=== PATIENT | male | born 1995 | race Caucasian/White ===

== ENCOUNTER 2016-04-30 17:14 | Emergency (ER) | payer OTHER ==
[~2016-04-30] VITALS: Ht 160 cm; Wt 119.3 kg
[~2016-04-30 17:14] MED LIST: DIVA500T3 PO; VALA500T60 PO
[2016-04-30 17:20] VITALS: TEMP 36.8; Ht 160 cm; Wt 119.3 kg
[2016-04-30] MEDS ORDERED: DIPH-437 PO (17:51)
[2016-04-30 18:44] LABS: BASO % 0.3 %; BASO ABS # 0.02 K/uL (0-0.2); COMPLETE YES; EOS % 2.5 %; HEMATOCRIT 43.1 % (42-52); IG% 0.3 %; LYMPH % 40.7 %; LYMPH ABS # 2.87 K/uL (1.2-3.4); MEAN CELL VOLUME 90.2 fL (80-100); MEAN CORPUSCULAR HEMOGLOBIN 31.4 pg (25-34); MEAN CORPUSCULAR HGB CONC 34.8 g/dl (32-36); MEAN PLATELET VOLUME 8.9 fL (7.4-10.4); MONO % 10.1 %; NEUT % 46.1 %; PLATELET COUNT 308 K/uL (130-400); RED BLOOD COUNT 4.78 M/uL (4.7-6.1); WHITE BLOOD COUNT 7.06 K/uL (4.8-10.8)
[2016-04-30 19:33] LABS: BUN/CREATININE RATIO 12.9 (10-20); CALCIUM 8.9 mg/dl (8.5-10.1); CREATININE 0.96 mg/dl (0.60-1.40); POTASSIUM 3.9 mmol/L (3.5-5.1)
--- NOTE | 2016-04-30 20:30 | EMERGENCY ROOM VISIT NOTE ---
History Report prepared by Dakota: Selvin Griffin Under the Supervision of: Dr. Wei White D.O. First contact with patient: 18:01 Chief Complaint: DIZZY Stated Complaint: DIZZY,ROOM SPINNING,CANT SLEEP Nursing Triage Summary: Dizzy, room spinning past couple of days. Not able to sleep. Trouble breathing. History of Present Illness The patient is a 20 year old male who presents to the Emergency Room with complaints of persistent dizziness beginning 3 days ago. He notes he gets headaches with the dizziness, and has had difficulty breathing, difficulty sleeping, and itchiness in his ears. 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 He has not had any recent illness or cough. The patient reports having diabetes. Source of History: patient Onset: 3 days ago Position: other (global) Quality: other (dizziness) Timing: other (persistent) Modifying Factors (Worsening): other (standing for long periods of time) Associated Symptoms: + headache, No cough Review of Systems See HPI for pertinent positives & negatives. A total of 10 systems reviewed and were otherwise negative. Past Medical & Surgical Medical Problems: (1) ADHD (attention deficit hyperactivity disorder) (2) Attn Deficit W Hyperact (3) Congenital obstruction of ureteropelvic junction (4) Depression (5) Developmental articulation disorder (6) Diabetes mellitus (7) H/o seizures (8) History of diabetes mellitus (9) Hypertension Nos (10) Hypothyroidism (11) Hypothyroidism Nos (12) Lumbago (13) Tobacco Use Disorder Surgical Problems: (1) S/P orchiopexy (2) S/p repair of lip (3) S/p revision of kidney/ureter (4) S/P tonsillectomy and adenoidectomy Family History No pertinent family history stated. Social History Smoking Status: Current Every Day Smoker Alcohol Use: none Marital Status: in relationship Housing Status: lives with family Occupation Status: employed Current/Historical Medications Scheduled Acetaminophen/Diphenhydramine (Tylenol Pm), 1 TAB PO DIRECTED Scheduled PRN Valacyclovir (Valtrex), 500 MG PO DIRECTED PRN for outbreak Allergies Coded Allergies: Lamotrigine (Verified Allergy, Mild, RASH, 04/30/16) Uncoded Allergies: PROVOLONE CHEESE (Allergy, Severe, ANAPHYLAXIS, 01/13/16) Physical Exam Vital Signs Date Time Temp Pulse Resp B/P Pulse Ox O2 Delivery O2 Flow Rate FiO2 04/30/16 19:03 69 18 148/87 98 Room Air 04/30/16 17:45 77 18 150/89 97 Room Air 78 141/92 95 163/98 04/30/16 17:20 36.8 100 18 165/109 93 Room Air Physical Exam CONSTITUTIONAL/VITAL SIGNS: Reviewed / noted above. GENERAL: Non-toxic in appearance. INTEGUMENTARY: Warm, dry, and [place]. HEAD: Normocephalic. EYES: without scleral icterus or trauma. ENT/OROPHARYNX: clear and moist. LYMPHADENOPATHY/NECK: Is supple without lymphadenopathy or meningismus. RESPIRATORY: Lungs clear and equal. CARDIOVASCULAR: Regular rate and rhythm. GI/ABDOMEN: Soft and nontender. No organomegaly or pulsatile mass. No rebound or guarding. Normal bowel sounds. EXTREMITIES: Warm and well perfused. BACK: No CVA tenderness. NEUROLOGICAL: Intact without focal deficits. PSYCHIATRIC: normal affect. MUSCULOSKELETAL: Normally developed with good muscle tone. Medical Decision & Procedures Laboratory Results 04/30/16 18:33 Red Blood Count 4.78, Mean Corpuscular Volume 90.2, Mean Corpuscular Hemoglobin 31.4, Mean Corpuscular Hemoglobin Concent 34.8, Mean Platelet Volume 8.9, Neutrophils (%) (Auto) 46.1, Lymphocytes (%) (Auto) 40.7, Monocytes (%) (Auto) 10.1, Eosinophils (%) (Auto) 2.5, Basophils (%) (Auto) 0.3, Neutrophils # (Auto ) 3.26, Lymphocytes # (Auto) 2.87, Monocytes # (Auto) 0.71, Eosinophils # (Auto ) 0.18, Basophils # (Auto) 0.02 04/30/16 18:33 Test 04/30/16 18:33 White Blood Count 7.06 K/uL (4.8-10.8) Red Blood Count 4.78 M/uL (4.7-6.1) Hemoglobin 15.0 g/dL (14.0-18.0) Hematocrit 43.1 % (42-52) Mean Corpuscular Volume 90.2 fL (80-100) Mean Corpuscular Hemoglobin 31.4 pg (25-34) Mean Corpuscular Hemoglobin Concent 34.8 g/dl (32-36) Platelet Count 308 K/uL (130-400) Mean Platelet Volume 8.9 fL (7.4-10.4) Neutrophils (%) (Auto) 46.1 % Lymphocytes (%) (Auto) 40.7 % Monocytes (%) (Auto) 10.1 % Eosinophils (%) (Auto) 2.5 % Basophils (%) (Auto) 0.3 % Neutrophils # (Auto) 3.26 K/uL (1.4-6.5) Lymphocytes # (Auto) 2.87 K/uL (1.2-3.4) Monocytes # (Auto) 0.71 K/uL (0.11-0.59) Eosinophils # (Auto) 0.18 K/uL (0-0.5) Basophils # (Auto) 0.02 K/uL (0-0.2) RDW Standard Deviation 43.3 fL (36.4-46.3) RDW Coefficient of Variation 13.1 % (11.5-14.5) Immature Granulocyte % (Auto) 0.3 % Immature Granulocyte # (Auto) 0.02 K/uL (0.00-0.02) Anion Gap 8.0 mmol/L (3-11) Est Creatinine Clear Calc Drug Dose 140.9 ml/min Estimated GFR () 130.4 Estimated GFR (Non- 112.5 BUN/Creatinine Ratio 12.9 (10-20) Calcium Level 8.9 mg/dl (8.5-10.1) Chemistry Specimen Hemolysis Laboratory results as stated above per my review. ED Course 1802: Previous medical records were reviewed. The patient was evaluated in room C3. A complete history and physical examination was performed. 2030: On reevaluation, the patient is hemodynamically stable. I discussed the results and findings with the patient. He verbalized agreement of the treatment plan. The patient was discharged home. Medical Decision Differential includes acute coronary syndrome, myocardial infarction, CVA, TIA, anemia, infection, pneumonia, UTI, pyelonephritis, poor nutrition, dehydration, electrolyte disturbance,hypoglycemia. This is a 20-year-old male who presents to the ED with a chief complaint of some dizziness for a few days. 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 The patient wanted to come in and make sure that everything is okay. Eyes any recent illness. He does report a history of borderline diabetes. He is currently on no medication for this. He had been on metformin in the past. The patient's exam is completely normal. His vital signs are normal. Blood work was unremarkable. The patient was told the results. He is felt to be stable for discharge. Impression Primary Impression: Dizziness Scribe Attestation The scribe's documentation has been prepared under my direction and personally reviewed by me in its entirety. I confirm that the note above accurately reflects all work, treatment, procedures, and medical decision making performed by me. Departure Information Dispostion Home / Self-Care Referrals Christofer Benavides III, M.D. (PCP) Patient Instructions ED Dizziness O, [facility] Additional Instructions Follow-up with your doctor for further care and evaluation in 1-2 days as needed. Return to the emergency department for worsening or new symptoms or any concerns. You have been examined and treated today on an emergency basis only. This is not a substitute for, or an effort to provide, complete comprehensive medical care. It is impossible to recognize and treat all injuries or illnesses in a single emergency department visit. It is therefore important that you follow up closely with your doctor. Call as soon as possible for an appointment.
[2016-04-30 20:43] VITALS: BP 172/92; PULSE 73; O2SAT 93
[2016-09-21] MEDS ORDERED: AZIT250T5 PO (01:02)
== END 2016-04-30 19:44 | disposition home or self-care (01) ==
LOC: C.EDB 17:15 → C.EDC 19:44
DX: R42 Dizziness and giddiness (principal); F90.9 Attention-deficit hyperactivity disorder, unspecified type; F32.9 Major depressive disorder, single episode, unspecified; F80.0 Phonological disorder; E11.9 Type 2 diabetes mellitus without complications; I10 Essential (primary) hypertension; E03.9 Hypothyroidism, unspecified; F17.210 Nicotine dependence, cigarettes, uncomplicated

== ENCOUNTER 2016-05-03 13:30 | Emergency (ER) | payer OTHER ==
[~2016-05-03] VITALS: Ht 157.5 cm; Wt 110.0 kg
[~2016-05-03 13:30] MED LIST changes: +DIPH-437 PO; -DIVA500T3 PO
[2016-05-03 13:32] VITALS: TEMP 36.4; Ht 157.5 cm; Wt 110.0 kg
[2016-05-03] MEDS ORDERED: ONDANSETRON 4MG OD TAB PO STA (13:53)
[2016-05-03] MEDS ORDERED: ACETAMINOPHEN 500 MG TAB PO STA (13:53)
[2016-05-03] MEDS ORDERED: OXYCODONE HCL IR 5 MG TAB (IMMEDIATE RELEASE) PO STA (13:53)
--- NOTE | 2016-05-03 14:30 | EMERGENCY ROOM VISIT NOTE ---
History Report prepared by Nellaibjodee: Mikhail Lakhani Under the Supervision of: Dr. Abel Damico M.D. 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 As per a friend that witnessed the fall, the patient was carrying a rocking chair and missed a step. The patient tumbled down 7-8 carpeted steps. The patient appeared dizzy and disoriented after the fall, and was having balance issues. The patient was taken to his bed, where he slept until his fiance woke him up just BARGAIN TABLE CLERK. The patient now complains of a headache, although he does not remember hitting his head. He also complains of neck pain and mouth pain. He did not bleed from the mouth. The patient denies pain to any extremities, his chest or abdomen. 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 A total of 10 systems reviewed and were otherwise negative. Past Medical & Surgical Medical Problems: (1) ADHD (attention deficit hyperactivity disorder) (2) Attn Deficit W Hyperact (3) Congenital obstruction of ureteropelvic junction (4) Depression (5) Developmental articulation disorder (6) Diabetes mellitus (7) H/o seizures (8) History of diabetes mellitus (9) Hypertension Nos (10) Hypothyroidism (11) Hypothyroidism Nos (12) Lumbago (13) Tobacco Use Disorder Surgical Problems: (1) S/P orchiopexy (2) S/p repair of lip (3) S/p revision of kidney/ureter (4) S/P tonsillectomy and adenoidectomy Family History No pertinent family history Social History Smoking Status: Current Every Day Smoker Alcohol Use: none Marital Status: in relationship Housing Status: lives with family Occupation Status: employed Current/Historical Medications Scheduled Acetaminophen/Diphenhydramine (Tylenol Pm), 1 TAB PO DIRECTED Ondasetron Odt (Zofran Odt), 4 MG SL Q6H Scheduled PRN Oxycodone Ir (Roxicodone Ir), 1-2 TAB PO Q4H PRN for Pain Valacyclovir (Valtrex), 500 MG PO DIRECTED PRN for outbreak Allergies Coded Allergies: Lamotrigine (Verified Allergy, Mild, RASH, 05/03/16) Uncoded Allergies: PROVOLONE CHEESE (Allergy, Severe, ANAPHYLAXIS, 01/13/16) Physical Exam Vital Signs Date Time Temp Pulse Resp B/P Pulse Ox O2 Delivery O2 Flow Rate FiO2 05/03/16 15:57 91 16 149/80 96 05/03/16 13:32 36.4 84 18 161/103 95 Room Air Physical Exam GENERAL: Patient is in no acute distress. HEENT: No acute trauma, normocephalic atraumatic, no scalp hematoma, pupils are equal and reactive to light, mucous membranes moist, no nasal congestion, no scleral icterus. NECK: No stridor, no adenopathy, no bony stepoff or focal area of tenderness, trachea is midline. LUNGS: Clear to auscultation bilaterally, no wheeze, no rhonchi, breath sounds equal. HEART: Without murmurs gallops or rubs, regular rate and rhythm. ABDOMEN: Soft, nontender, bowel sounds positive, no hernias, no peritonitis. EXTREMITIES: No cyanosis or edema, full range of motion of all the joints without pain or difficulty, no signs for acute trauma. NEUROLOGIC: Oriented x 3, no acute motor or sensory deficits, no focal weakness. SKIN: No rash, no jaundice, no diaphoresis. Medical Decision & Procedures ER Provider Diagnostic Interpretation: CT results as stated below per my review and radiologist interpretation: CERVICAL SPINE CT CT DOSE: HISTORY: Fall. Neck pain. TECHNIQUE: Multiaxial CT images of the cervical spine were performed and reformatted in the sagittal and coronal plane without the use of contrast. COMPARISON: Cervical spine CT 06/25/2014. FINDINGS: No acute fractures. No subluxation. Prevertebral soft tissues and the C1-C2 interval are intact. No pneumothorax. No change in the old nonunited fracture at the superior tip of the right C3 facet. IMPRESSION: No acute fractures within the cervical spine. Electronically signed by: Moises Packer M.D. 05/03/2016 3:15 PM Dictated Date/Time: 05/03/2016 3:[address] CT DOSE: 1301.54 mGy.cm HISTORY: HEADACHE TECHNIQUE: Multiaxial CT images of the head were performed without the use of intravenous contrast. Automated exposure control was utilized for this study. Comparison: Head CT 10/10/2015. Findings: The paranasal sinuses and mastoid air cells are clear. The calvarium and skull base are intact. The ventricles and sulci are within normal limits. There is no mass, hematoma, midline shift, or acute infarct. Impression: No acute intracranial abnormality. Electronically signed by: Moises Packer M.D. 05/03/2016 3:09 PM Dictated Date/Time: 05/03/2016 3:02 PM Medications Administered Medications (Trade) Dose Ordered Sig/[place] Route Start Time Stop Time Status Last Admin Dose Admin Ondansetron HCl (Zofran Odt) 8 mg NOW STAT PO 05/03/16 13:53 05/03/16 13:57 DC 05/03/16 14:24 8 MG Oxycodone HCl (Roxicodone Immediate Rel Tab) 5 mg NOW STAT PO 05/03/16 13:53 05/03/16 13:57 DC 05/03/16 14:24 5 MG Acetaminophen (Tylenol Tab) 1,000 mg NOW STAT PO 05/03/16 13:53 05/03/16 13:57 DC 05/03/16 14:23 1,000 MG Oxycodone HCl (Roxicodone Immediate Rel 5MG Home Pack) 1 homepack UD ONCE PO 05/03/16 15:45 05/03/16 15:46 DC 05/03/16 15:45 1 HOMEPACK ED Course 1350: The patient was evaluated in room B7. A complete history and physical exam was performed. 1353: Tylenol 1000 mg PO, Oxycodone IR 5 mg PO, Zofran 8 mg Odt PO. 1545: Oxycodone 5 mg IR PO homepack. 1530: Reassessed the patient. Discussed the findings with him. He verbalized understanding and agreement of the treatment plan. The patient is ready for discharge. 1532: The prescription drug monitoring program was evaluated for this patient. Medical Decision Differential diagnosis includes concussion, intracranial bleeding, skull fracture, cervical strain vs fracture, back chest abdominal or extremity trauma. The patient presents with a head injury. He has a headache and nausea and reports falling down the stairs. He also had some mild neck discomfort but no focal bony discomfort on exam. He denied injury to his back, chest, abdomen or extremities. Brain CT shows no acute bleed or mass effect. C-spine CT shows no acute fracture. The patient was given oral Tylenol, oral Zofran and oral oxycodone, he feels improved and is being discharged. He likely has suffered a concussion, I discussed concussion findings and care with him. He is being discharged with outpatient follow-up. He was encouraged to avoid any activity where he could strike his head again, he was given some oxycodone for pain control, Zofran for nausea. Rest was encouraged. [place] Drug Monitoring Program Search Results: patient reviewed within database, no issues identified Impression Primary Impression: Head trauma Additional Impressions: Concussion Cervical strain Scribe Attestation The scribe's documentation has been prepared under my direction and personally reviewed by me in its entirety. I confirm that the note above accurately reflects all work, treatment, procedures, and medical decision making performed by me. Departure Information Dispostion Home / Self-Care Prescriptions Ondasetron Odt (ZOFRAN ODT) 4 Mg Tab 4 MG SL Q6H for Nausea, #12 TAB Prov: Abel Damico M.D. 05/03/16 Oxycodone Ir (Roxicodone Ir) 5 Mg Tab 1-2 TAB PO Q4H Y for Pain, #12 TAB Prov: Abel Damico M.D. 05/03/16 Referrals No Doctor, Assigned (PCP) Forms HOME CARE DOCUMENTATION FORM, IMPORTANT VISIT INFORMATION, Work Instructions Patient Instructions Concussion, [facility] Additional Instructions tylenol or motrin for pain oxy ir 1-2 tab every 4 hours for severe pain zofran 1-2 tab every 6 hours for nausea fluids rest return if worsening head injury precautions as we discussed see your doctor for a recheck this week Problem Qualifiers
--- NOTE | 2016-05-03 15:10 | DIAGNOSTIC IMAGING REPORT ---
HEAD CT NONCONTRAST CT DOSE: 1301.54 mGy.cm HISTORY: HEADACHE TECHNIQUE: Multiaxial CT images of the head were performed without the use of intravenous contrast. Automated exposure control was utilized for this study. Comparison: Head CT 10/10/2015. Findings: The paranasal sinuses and mastoid air cells are clear. The calvarium and skull base are intact. The ventricles and sulci are within normal limits. There is no mass, hematoma, midline shift, or acute infarct. Impression: No acute intracranial abnormality. Electronically signed by: Moises Packer M.D. 05/03/2016 3:09 PM Dictated Date/Time: 05/03/2016 3:02 PM
--- NOTE | 2016-05-03 15:17 | DIAGNOSTIC IMAGING REPORT ---
CERVICAL SPINE CT CT DOSE: HISTORY: Fall. Neck pain. TECHNIQUE: Multiaxial CT images of the cervical spine were performed and reformatted in the sagittal and coronal plane without the use of contrast. COMPARISON: Cervical spine CT 06/25/2014. FINDINGS: No acute fractures. No subluxation. Prevertebral soft tissues and the C1-C2 interval are intact. No pneumothorax. No change in the old nonunited fracture at the superior tip of the right C3 facet. IMPRESSION: No acute fractures within the cervical spine. Electronically signed by: Moises Packer M.D. 05/03/2016 3:15 PM Dictated Date/Time: 05/03/2016 3:09 PM
[2016-05-03] MEDS ORDERED: ONDA4TAB10 SL (15:38)
[2016-05-03] MEDS ORDERED: OXYC1TAB3 PO (15:38)
[2016-05-03] MEDS ORDERED: OXYCODONE IR HOME PACK PO ONE (15:45)
[2016-05-03 15:57] VITALS: BP 149/80; PULSE 91; O2SAT 96
[2016-09-21] MEDS ORDERED: AZIT250T5 PO (01:02)
== END 2016-05-03 15:58 | disposition home or self-care (01) ==
LOC: C.EDB 13:31
DX: S09.90XA Unspecified injury of head, initial encounter (principal); S06.0X0A Concussion without loss of consciousness, initial encounter; S16.1XXA Strain of muscle, fascia and tendon at neck level, initial encounter; W10.8XXA Fall (on) (from) other stairs and steps, initial encounter; F90.9 Attention-deficit hyperactivity disorder, unspecified type; F32.9 Major depressive disorder, single episode, unspecified; E11.9 Type 2 diabetes mellitus without complications; E03.9 Hypothyroidism, unspecified; I10 Essential (primary) hypertension; F17.200 Nicotine dependence, unspecified, uncomplicated; Z91.011 Allergy to milk products

== ENCOUNTER 2016-08-30 13:04 | Emergency (ER) | payer OTHER ==
[~2016-08-30] VITALS: Ht 154.9 cm; Wt 123.0 kg
[~2016-08-30 13:04] MED LIST changes: +ONDA4TAB10 SL; +OXYC1TAB3 PO
[2016-08-30 13:06] VITALS: TEMP 36.5; Ht 154.9 cm; Wt 123.0 kg
[2016-08-30] MEDS ORDERED: SODIUM CHLORIDE 0.9% 1000ML 2,000 ML IV STA (13:19)
[2016-08-30] MEDS ORDERED: ONDANSETRON INJ 2 MG/ML 2 ML VIAL IV STA (13:19)
[2016-08-30] MEDS ORDERED: MoRPHine SULFATE 4 MG/ML 1 ML CARP\\VIAL IV STA (13:19)
[2016-08-30 13:44] LABS: BASO % 0.6 %; BASO ABS # 0.04 K/uL (0-0.2); COMPLETE YES; EOS % 3.3 %; HEMATOCRIT 45.5 % (42-52); IG% 0.1 %; LYMPH % 35.4 %; LYMPH ABS # 2.46 K/uL (1.2-3.4); MEAN CELL VOLUME 89.7 fL (80-100); MEAN CORPUSCULAR HEMOGLOBIN 30.4 pg (25-34); MEAN CORPUSCULAR HGB CONC 33.8 g/dl (32-36); MEAN PLATELET VOLUME 8.5 fL (7.4-10.4); MONO % 8.5 %; NEUT % 52.1 %; PLATELET COUNT 321 K/uL (130-400); RED BLOOD COUNT 5.07 M/uL (4.7-6.1); WHITE BLOOD COUNT 6.95 K/uL (4.8-10.8)
[2016-08-30 14:07] LABS: ALT/SGPT 64 U/L (12-78); AST/SGOT 22 U/L (15-37); BLOOD UREA NITROGEN 9 mg/dl (7-18); BUN/CREATININE RATIO 9.6 (10-20); CALCIUM 8.8 mg/dl (8.5-10.1); CARBON DIOXIDE 32 mmol/L (21-32); CHLORIDE 104 mmol/L (98-107); CREATININE 0.94 mg/dl (0.60-1.40); GLUCOSE 85 mg/dl (70-99); SODIUM 141 mmol/L (136-145)
[2016-08-30 14:10] LABS: ALKALINE PHOSPHATASE 86 U/L (45-117)
[2016-08-30 14:47] LABS: URINE APPEARANCE CLEAR (CLEAR); URINE BILIRUBIN NEG (NEG); URINE COLOR YELLOW; URINE NITRITE NEG (NEG); URINE PH 7.5 (4.5-7.5); URINE SPECIFIC GRAVITY 1.026 (1.000-1.030); UROBILINOGEN NEG (NEG); ZZUR CULT IF INDIC CLEAN CATCH NO
[2016-08-30 14:55] LABS: MANUAL MICROSCOPIC REQUIRED? NO; REVIEW REQ? NO
--- NOTE | 2016-08-30 15:21 | DIAGNOSTIC IMAGING REPORT ---
CT SCAN OF THE ABDOMEN AND PELVIS WITHOUT IV CONTRAST CLINICAL HISTORY: Left flank pain. COMPARISON STUDY: Abdominal CT dated 08/19/2014. TECHNIQUE: CT scan of the abdomen and pelvis is performed from the lung bases to the proximal femora. Images are reviewed in the axial, sagittal, and coronal planes. IV contrast was not administered for this examination. Automated dose control exposure was utilized. CT DOSE: 1184.48 mGy.cm FINDINGS: Lung bases: The heart is normal in size and without pericardial effusion. The lung bases are clear noting dependent hypoventilatory change. There is a tiny hiatal hernia. Liver: The unenhanced liver is top normal in size measuring 18 cm. The liver demonstrates diffusely diminished attenuation consistent with hepatic steatosis. Fatty sparing is seen adjacent to the gallbladder fossa. There is no intrahepatic biliary ductal dilatation. Gallbladder: Unremarkable. Spleen: Normal in size and attenuation. Pancreas: Unremarkable. Adrenal glands: Unremarkable. Kidneys: The unenhanced kidneys are normal in size and without hydronephrosis. Foci of cortical scarring are noted in the left kidney. There is a 2 mm nonobstructing calculus in the lower pole of the left kidney. No right renal calculi are identified. Next renal pelvises incidentally noted on the left. There is no evidence of contour deforming renal mass lesion. Abdominal vasculature: The abdominal aorta is normal in course and caliber. Bowel: The small bowel and colon are normal in course and caliber. The appendix is well-visualized and normal. Peritoneum: There is no intraperitoneal free air or abdominal ascites. There is a fat-containing umbilical hernia. Lymphadenopathy: None. Pelvic viscera: The bladder is decompressed and not well assessed. The prostate and seminal vesicles are normal as visualized. Skeletal structures: No lytic or blastic lesions are seen. IMPRESSION: 1. There are no acute infectious or inflammatory findings in the abdomen or pelvis. 2. Small nonobstructing left calculus. 3. Foci of cortical scarring are noted in the left kidney and similar to previous. 4. Hepatic steatosis. Electronically signed by: Abel Downing M.D. 08/30/2016 3:20 PM Dictated Date/Time: 08/30/2016 3:15 PM
--- NOTE | 2016-08-30 15:26 | EMERGENCY ROOM VISIT NOTE ---
History Report prepared by Dakota: Kyle Alba Under the Supervision of: Dr. William Gonsalez D.O. First contact with patient: 13:14 Chief Complaint: URINARY SYMPTOMS Stated Complaint: LEFT KIDNEY PAIN,BLOOD IN URINE Nursing Triage Summary: had surgery in 2000 on left kidney to remove tumor presents to the ED with 1 month of pain and hematuria History of Present Illness The patient is a 20 year old male who presents to the Emergency Room with complaints of persistent left flank pain that started a month ago. He says that he has been urinating blood as well. The patient associates the pain with nausea , and he started having burning with urination 2 weeks ago. He has not seen anyone for his symptoms, but it got to the point where he could not move due to the pain. The patient's last bowel movement was today. He denies any recent trauma or falls. The patient has no history of kidney stones and he has both his kidneys, but he had half of his left kidney removed in 2000 when he had surgery to remove a tumor. Source of History: patient Onset: A month ago Position: other (left flank) Quality: other (pain) Timing: other (persistent) Associated Symptoms: + nausea, + urinary symptoms (hematuria, burning with urination) Note: Associated symptoms: No recent falls or trauma. Review of Systems See HPI for pertinent positives & negatives. A total of 10 systems reviewed and were otherwise negative. Past Medical & Surgical Medical Problems: (1) ADHD (attention deficit hyperactivity disorder) (2) Attn Deficit W Hyperact (3) Congenital obstruction of ureteropelvic junction (4) Depression (5) Developmental articulation disorder (6) Diabetes mellitus (7) H/o seizures (8) History of diabetes mellitus (9) Hypertension Nos (10) Hypothyroidism (11) Hypothyroidism Nos (12) Lumbago (13) Tobacco Use Disorder Surgical Problems: (1) S/P orchiopexy (2) S/p repair of lip (3) S/p revision of kidney/ureter (4) S/P tonsillectomy and adenoidectomy Family History No pertinent family history Social History Smoking Status: Former Smoker Alcohol Use: none Marital Status: in relationship Housing Status: lives with family Occupation Status: employed Current/Historical Medications No Active Prescriptions or Reported Meds Allergies Coded Allergies: Lamotrigine (Verified Allergy, Mild, RASH, 05/03/16) Uncoded Allergies: PROVOLONE CHEESE (Allergy, Severe, ANAPHYLAXIS, 01/13/16) Physical Exam Vital Signs Date Time Temp Pulse Resp B/P (MAP) Pulse Ox O2 Delivery O2 Flow Rate FiO2 08/30/16 13:06 36.5 88 20 153/90 96 Physical Exam GENERAL: lying in bed, no acute distress, nontoxic EYE EXAM: normal conjunctiva OROPHARYNX: no exudate, no erythema, lips, buccal mucosa, and tongue normal and mucous membranes are moist NECK: supple, no nuchal rigidity, no adenopathy, non-tender LUNGS: Clear to auscultation. Normal chest wall mechanics HEART: no murmurs, S1 normal and S2 normal ABDOMEN: abdomen soft, non-tender, normo-active bowel sounds, no masses, no rebound or guarding. BACK: Acute reproducible left flank pain. Back is symmetrical on inspection and there is no deformity, no midline tenderness, no CVA tenderness. SKIN: no rashes and no bruising UPPER EXTREMITIES: upper extremities are grossly normal. LOWER EXTREMITIES: No pitting edema. NEURO EXAM: Normal sensorium, cranial nerves II-XII grossly intact, normal speech, no gross weakness of arms, no gross weakness of legs. Medical Decision & Procedures ER Provider Diagnostic Interpretation: Patient: CJ POND Address1: [address] [place] [address] Rec: [id number] Address2: Acct ID: [id number] [facility] Zip: [place] [address] Date: 1995 Sex: M Room/Bed: Ref Phy: Christofer Benavides III, M.D. SC: ASUNCION Att Phy: Report #: [id number] Leona Phy: Christofer Benavides III, M.D. Test: APWO Admit Phy: Planting Material Unloader: YANA Interpreting Phy: Abel Downing M.D. Diagnosis: LEFT KIDNEY PAIN,BLOOD IN URINE Ordering Phy: William Gonsalez DO Service Date: 08/30/16 Admit Date: 08/30/16 MNE: [id number] CONF: DICTATED BY: Abel Downing M.D.]] CC: William Gonsalez, Christofer Huggins III, M.D. Endcc: [~ rep ct add3]] CT SCAN OF THE ABDOMEN AND PELVIS WITHOUT IV CONTRAST CLINICAL HISTORY: Left flank pain. COMPARISON STUDY: Abdominal CT dated 08/19/2014. TECHNIQUE: CT scan of the abdomen and pelvis is performed from the lung bases to the proximal femora. Images are reviewed in the axial, sagittal, and coronal planes. IV contrast was not administered for this examination. Automated dose control exposure was utilized. CT DOSE: 1184.48 mGy.cm FINDINGS: Lung bases: The heart is normal in size and without pericardial effusion. The lung bases are clear noting dependent hypoventilatory change. There is a tiny hiatal hernia. Liver: The unenhanced liver is top normal in size measuring 18 cm. The liver demonstrates diffusely diminished attenuation consistent with hepatic steatosis. Fatty sparing is seen adjacent to the gallbladder fossa. There is no intrahepatic biliary ductal dilatation. Gallbladder: Unremarkable. Spleen: Normal in size and attenuation. Pancreas: Unremarkable. Adrenal glands: Unremarkable. Kidneys: The unenhanced kidneys are normal in size and without hydronephrosis. Foci of cortical scarring are noted in the left kidney. There is a 2 mm nonobstructing calculus in the lower pole of the left kidney. No right renal calculi are identified. Next renal pelvises incidentally noted on the left. There is no evidence of contour deforming renal mass lesion. Abdominal vasculature: The abdominal aorta is normal in course and caliber. Bowel: The small bowel and colon are normal in course and caliber. The appendix is well-visualized and normal. Peritoneum: There is no intraperitoneal free air or abdominal ascites. There is a fat-containing umbilical hernia. Lymphadenopathy: None. Pelvic viscera: The bladder is decompressed and not well assessed. The prostate and seminal vesicles are normal as visualized. Skeletal structures: No lytic or blastic lesions are seen. IMPRESSION: 1. There are no acute infectious or inflammatory findings in the abdomen or pelvis. 2. Small nonobstructing left calculus. 3. Foci of cortical scarring are noted in the left kidney and similar to previous. 4. Hepatic steatosis. Electronically signed by: Abel Downing M.D. 08/30/2016 3:20 PM Dictated Date/Time: 08/30/2016 3:15 PM Laboratory Results 08/30/16 13:25 Red Blood Count 5.07, Mean Corpuscular Volume 89.7, Mean Corpuscular Hemoglobin 30.4, Mean Corpuscular Hemoglobin Concent 33.8, Mean Platelet Volume 8.5, Neutrophils (%) (Auto) 52.1, Lymphocytes (%) (Auto) 35.4, Monocytes (%) (Auto) 8.5, Eosinophils (%) (Auto) 3.3, Basophils (%) (Auto) 0.6, Neutrophils # (Auto) 3.62, Lymphocytes # (Auto) 2.46, Monocytes # (Auto) 0.59, Eosinophils # (Auto) 0.23, Basophils # (Auto) 0.04 08/30/16 13:25 Test 08/30/16 13:25 08/30/16 14:05 White Blood Count 6.95 K/uL (4.8-10.8) Red Blood Count 5.07 M/uL (4.7-6.1) Hemoglobin 15.4 g/dL (14.0-18.0) Hematocrit 45.5 % (42-52) Mean Corpuscular Volume 89.7 fL (80-100) Mean Corpuscular Hemoglobin 30.4 pg (25-34) Mean Corpuscular Hemoglobin Concent 33.8 g/dl (32-36) Platelet Count 321 K/uL (130-400) Mean Platelet Volume 8.5 fL (7.4-10.4) Neutrophils (%) (Auto) 52.1 % Lymphocytes (%) (Auto) 35.4 % Monocytes (%) (Auto) 8.5 % Eosinophils (%) (Auto) 3.3 % Basophils (%) (Auto) 0.6 % Neutrophils # (Auto) 3.62 K/uL (1.4-6.5) Lymphocytes # (Auto) 2.46 K/uL (1.2-3.4) Monocytes # (Auto) 0.59 K/uL (0.11-0.59) Eosinophils # (Auto) 0.23 K/uL (0-0.5) Basophils # (Auto) 0.04 K/uL (0-0.2) RDW Standard Deviation 40.9 fL (36.4-46.3) RDW Coefficient of Variation 12.6 % (11.5-14.5) Immature Granulocyte % (Auto) 0.1 % Immature Granulocyte # (Auto) 0.01 K/uL (0.00-0.02) Anion Gap 5.0 mmol/L (3-11) Est Creatinine Clear Calc Drug Dose 141.6 ml/min Estimated GFR () 133.8 Estimated GFR (Non- 115.4 BUN/Creatinine Ratio 9.6 (10-20) Calcium Level 8.8 mg/dl (8.5-10.1) Total Bilirubin 0.4 mg/dl (0.2-1) Direct Bilirubin < 0.1 mg/dl (0-0.2) Aspartate Amino Transf (AST/SGOT) 22 U/L (15-37) Alanine Aminotransferase (ALT/SGPT) 64 U/L (12-78) Alkaline Phosphatase 86 U/L (45-117) Total Protein 7.5 gm/dl (6.4-8.2) Albumin 4.0 gm/dl (3.4-5.0) Lipase 148 U/L (73-393) Urine Color YELLOW Urine Appearance CLEAR (CLEAR) Urine pH 7.5 (4.5-7.5) Urine Specific [place] 1.026 (1.000-1.030) Urine Protein NEG (NEG) Urine Glucose (UA) NEG (NEG) Urine Ketones NEG (NEG) Urine Occult Blood NEG (NEG) Urine Nitrite NEG (NEG) Urine Bilirubin NEG (NEG) Urine Urobilinogen NEG (NEG) Urine Leukocyte Esterase NEG (NEG) Urine WBC (Auto) 1-5 /hpf (0-5) Urine RBC (Auto) 0-4 /hpf (0-4) Urine Hyaline Casts (Auto) 1-5 /lpf (0-5) Urine Epithelial Cells (Auto) 5-10 /lpf (0-5) Urine Bacteria (Auto) NEG (NEG) Laboratory results per my review. Medications Administered Medications (Trade) Dose Ordered Sig/[place] Route Start Time Stop Time Status Last Admin Dose Admin Sodium Chloride 2,000 ml @ 999 mls/hr Q2H1M STAT IV 08/30/16 13:19 08/30/16 15:19 DC 08/30/16 13:50 999 MLS/HR Ondansetron HCl (Zofran Inj) 4 mg NOW STAT IV 08/30/16 13:19 08/30/16 13:21 DC 08/30/16 13:50 4 MG Morphine Sulfate (MoRPHine SULFATE INJ) 4 mg NOW STAT IV 08/30/16 13:19 08/30/16 13:21 DC 08/30/16 13:50 4 MG ED Course ED COURSE: Vital signs were reviewed and showed hypertensive vitals. The patients medical record was reviewed The above diagnostic studies were performed and reviewed. ED treatments and interventions as stated above. 1315: The patient was evaluated in room A4B. A complete history and physical examination was performed. 1319: Ordered Morphine Sulfate Inj 4 mg IV, Zofran Inj 4 mg IV, NSS 2000 ml @ 999 mls/hr IV 1358: I reevaluated the patient and he is currently urinating for us, and then he will go to CT. 1534: Upon reevaluation, the patient is resting comfortably.I discussed my findings with the patient and he understands and agrees with the treatment plan. Based on the patients age, coexisting illnesses, exam and lab findings the decision to treat as an outpatient was made. The patient remained stable while under my care. The patient appeared well at the time of discharge. Medical Decision Differential diagnoses includes but is not limited to gastritis, peptic ulcer disease, GERD, gallbladder disease, pancreatitis, small bowel obstruction, acute coronary syndrome, pericarditis, ischemic bowel, irritable bowel disease, irritable bowel syndrome, appendicitis, diverticulitis, malignancy, hernia, urinary tract infection, torsion, perforation, trauma, infectious. Medication Reconciliation: I attest that I have personally reviewed the patient' s current medication list. Blood pressure screening: Patient was found to have an elevated blood pressure and was referred to their primary doctor for recheck and further treatment. Patient is a 20-year-old male who presents the ER for a month's worth of left flank pain associated with hematuria. He notes that he has a history of a Wilms tumor but no other significant past medical history. On exam he does have acute reproducible tenderness in the left flank tracking to the left upper quadrant of his abdomen. CT of abdomen and pelvis stone study was performed and was unremarkable. UA shows no signs of infection. No hematuria. CBC along with BMP, LFTs, bilirubin and lipase normal. Patient was given IV normal saline, Zofran and morphine. His pain was improved. He was discharged follow- up with his PCP. Uncertain of the true etiology of his pain at this time however does not appear to be surgical. With a negative CT I felt was reasonable discharged and have him follow-up with his primary care doctor. Discussed with Pt concerning signs and symptoms to watch out for. Pt was instructed to follow up with their PCP and discussed with the patient their option to return to the ED at anytime for persistent or worsening symptoms. The appropriate anticipatory guidance and out-patient management, including indications for return to the emergency department, were explained at length to the patient and understood. Impression Primary Impression: Left flank pain Scribe Attestation The scribe's documentation has been prepared under my direction and personally reviewed by me in its entirety. I confirm that the note above accurately reflects all work, treatment, procedures, and medical decision making performed by me. Departure Information Dispostion Home / Self-Care Prescriptions No Active Prescriptions or Reported Meds Referrals Christofer Benavides III, M.D. (PCP) Patient Instructions My [facility] Additional Instructions Please follow up with your primary care doctor with in the next 24 hours. Any worsening of your symptoms, please return to the ED immediately.
[2016-08-30 15:35] VITALS: BP 147/97; PULSE 73; O2SAT 97
== END 2016-08-30 15:45 | disposition home or self-care (01) ==
LOC: C.EDB 13:05 → C.EDA 15:45
DX: R10.32 Left lower quadrant pain (principal); R10.12 Left upper quadrant pain; R31.9 Hematuria, unspecified; R11.0 Nausea; R30.0 Dysuria; Z87.448 Personal history of other diseases of urinary system; F90.9 Attention-deficit hyperactivity disorder, unspecified type; F32.9 Major depressive disorder, single episode, unspecified; Q62.39 Other obstructive defects of renal pelvis and ureter; F80.89 Other developmental disorders of speech and language; E11.9 Type 2 diabetes mellitus without complications; I10 Essential (primary) hypertension; E03.9 Hypothyroidism, unspecified; M54.5 Low back pain; Z86.69 Personal history of other diseases of the nervous system and sense organs; Z87.891 Personal history of nicotine dependence

== ENCOUNTER 2016-09-10 18:27 | Emergency (ER) | payer OTHER ==
[~2016-09-10] VITALS: Ht 162.6 cm; Wt 124.6 kg
[2016-09-10 18:30] VITALS: TEMP 36.8; Ht 162.6 cm; Wt 124.6 kg
[2016-09-10] MEDS ORDERED: ONDANSETRON INJ 2 MG/ML 2 ML VIAL IV STA (19:00)
[2016-09-10] MEDS ORDERED: SODIUM CHLORIDE 0.9% 1000ML 1,000 ML IV ONE (19:00)
[2016-09-10 19:34] VITALS: BP 144/96; PULSE 80; O2SAT 98
[2016-09-10 20:13] LABS: BASO % 0.3 %; BASO ABS # 0.02 K/uL (0-0.2); COMPLETE YES; EOS % 4.4 %; HEMATOCRIT 42.9 % (42-52); IG% 0.2 %; LYMPH % 42.6 %; LYMPH ABS # 2.72 K/uL (1.2-3.4); MEAN CELL VOLUME 91.1 fL (80-100); MEAN CORPUSCULAR HEMOGLOBIN 30.8 pg (25-34); MEAN CORPUSCULAR HGB CONC 33.8 g/dl (32-36); MONO % 10.3 %; NEUT % 42.2 %; PLATELET COUNT 307 K/uL (130-400); RED BLOOD COUNT 4.71 M/uL (4.7-6.1); WHITE BLOOD COUNT 6.38 K/uL (4.8-10.8)
[2016-09-10 20:16] LABS: URINE APPEARANCE CLEAR (CLEAR); URINE BILIRUBIN NEG (NEG); URINE COLOR DK YELLOW; URINE NITRITE NEG (NEG); URINE SPECIFIC GRAVITY 1.033 (1.000-1.030); UROBILINOGEN NEG (NEG)
[2016-09-10 20:25] LABS: MANUAL MICROSCOPIC REQUIRED? NO; REVIEW REQ? NO
[2016-09-10 20:31] LABS: ALT/SGPT 58 U/L (12-78); AST/SGOT 27 U/L (15-37); BLOOD UREA NITROGEN 11 mg/dl (7-18); BUN/CREATININE RATIO 8.8 (10-20); CALCIUM 8.4 mg/dl (8.5-10.1); CARBON DIOXIDE 28 mmol/L (21-32); CHLORIDE 108 mmol/L (98-107); GLUCOSE 77 mg/dl (70-99); POTASSIUM 3.7 mmol/L (3.5-5.1); SODIUM 144 mmol/L (136-145)
[2016-09-10 20:34] LABS: ALKALINE PHOSPHATASE 91 U/L (45-117)
[2016-09-10] MEDS ORDERED: ONDA4TAB46 PO (20:59)
--- NOTE | 2016-09-12 14:00 | EMERGENCY ROOM VISIT NOTE ---
ED Visit Note First contact with patient: 18:43 Chief Complaint: I think I have sun poisoning. History of Present Illness: Mr. Bridges is a 20-year-old white male who ambulates into the ED accompanied by female friend and his daughter complaining of sunburn and possible sun poisoning. Patient reports he has been out playing in the sun and pool for the last few days with yesterday being multiple hours. He reports he has been using sunscreen and trying to apply it often but has noted that he has developed a sunburn to his face, his shoulders, his chest and upper arms. Patient reports today he has been having burning pain in the areas of the sunburn, he has been having perceived fevers; he has not checked his temperature , chills, lightheadedness and nausea. Currently he rates his discomfort 6/10. He describes his discomfort as a burning pain primarily in his left shoulder but also in his right and chest. His pain worsens with palpation and movements of the left shoulder; primarily abduction and extension. He has not identified any alleviating factors related to the pain. He has not taken any medications for his symptoms prior to arrival at the hospital. He denies sweats, headache, dizziness, recent head trauma, upper respiratory tract symptoms, cough, shortness of breath, wheezing, chest pain, palpitations, orthopnea, abdominal pain, diarrhea, constipation, rectal bleeding, black/tarry stools, urinary symptoms, flank pain, hematuria, extremity weakness/numbness/ tingling. Review of Systems: As noted above in history of present illness. All body systems were reviewed and found to be negative as noted above. Past Medical History: Diabetes, hypertension, hypothyroidism, congenital obstruction of the UPJ, attention deficit disorder, status post appendectomy, orchiopexy, revision of kidney/ureter, tonsillectomy and adenoidectomy. Current Medications: Zofran. Allergies to Medications: Acetaminophen, lamotrigine is allergic to Pravachol and cheese. Social History: Patient is currently employed; he feels safe in his home environment; he admits to tobacco use and denies alcohol use. Physical Examination: Vital Signs: Date Time Temp Pulse Resp B/P (MAP) Pulse Ox O2 Delivery O2 Flow Rate FiO2 09/10/16 19:34 85 150/83 98 Room Air 80 144/96 09/10/16 18:33 96 Room Air 09/10/16 18:30 36.8 93 17 142/88 94 Room Air GENERAL: 20-year-old male in mild to moderate distress due to symptoms, nontoxic -appearing, afebrile and hemodynamically stable. NEUROLOGICAL: Awake, alert and oriented to person, place and time. Answering questions appropriately and following commands. Normal gait. Good hand eye coordination. No focal motor or sensory deficits. SKIN: Warm, dry and pink. Over the patient's face, shoulders, upper arms and anterior chest he has a superficial thickness sunburn and over the top of the left shoulder he has a small collection of blisters. Burn is approximately 10- 15% body surface area. Partial-thickness burn is approximately 1% body surface area. The burned areas do not appear cellulitic. The burned areas are mildly tender to palpation. HEENT: Atraumatic and normocephalic. PERRLA. Sclera white and conjunctiva pink. No drainage from naris. Oral cavity moist and pink. Pharynx is nonerythematous or edematous. Speech normal. Trachea midline. No jugular venous distention. BACK: No tenderness over the bony spine. No CVA tenderness. THORAX: Lungs sounds are clear to auscultation and equal bilaterally with symmetrical chest wall. No wheezing, rales or rhonchi. No crepitus, tenderness , subcutaneous air or deformities noted. HEART: Regular rate and rhythm. No gallops, rubs or murmurs are appreciated. ABDOMEN: Flat, soft and nontender. Positive bowel sounds in all quadrants. No guarding, rigidity or organomegaly. EXTREMITIES: Moves all extremities well on command and with purpose. All distal neurovascular statuses are intact and equal bilaterally. ED Course: Patient is assessed as noted above. Patient's medication list was reviewed. Laboratory Testing: Test 09/10/16 19:05 09/10/16 19:10 Range/Units Urine Color DK YELLOW Urine Appearance CLEAR CLEAR Urine pH 6.0 4.5-7.5 Urine Specific [place] 1.033 1.000-1.030 Urine Protein NEG NEG Urine Glucose (UA) NEG NEG Urine Ketones TRACE NEG Urine Occult Blood NEG NEG Urine Nitrite NEG NEG Urine Bilirubin NEG NEG Urine Urobilinogen NEG NEG Urine Leukocyte Esterase NEG NEG White Blood Count 6.38 4.8-10.8 K/uL Red Blood Count 4.71 4.7-6.1 M/uL Hemoglobin 14.5 14.0-18.0 g/dL Hematocrit 42.9 42-52 % Mean Corpuscular Volume 91.1 80-100 fL Mean Corpuscular Hemoglobin 30.8 25-34 pg Mean Corpuscular Hemoglobin Concent 33.8 32-36 g/dl Platelet Count 307 130-400 K/uL Mean Platelet Volume 9.0 7.4-10.4 fL Neutrophils (%) (Auto) 42.2 % Lymphocytes (%) (Auto) 42.6 % Monocytes (%) (Auto) 10.3 % Eosinophils (%) (Auto) 4.4 % Basophils (%) (Auto) 0.3 % Neutrophils # (Auto) 2.69 1.4-6.5 K/uL Lymphocytes # (Auto) 2.72 1.2-3.4 K/uL Monocytes # (Auto) 0.66 0.11-0.59 K/uL Eosinophils # (Auto) 0.28 0-0.5 K/uL Basophils # (Auto) 0.02 0-0.2 K/uL RDW Standard Deviation 43.0 36.4-46.3 fL RDW Coefficient of Variation 12.8 11.5-14.5 % Immature Granulocyte % (Auto) 0.2 % Immature Granulocyte # (Auto) 0.01 0.00-0.02 K/uL Sodium Level 144 136-145 mmol/L Potassium Level 3.7 3.5-5.1 mmol/L Chloride Level 108 98-107 mmol/L Carbon Dioxide Level 28 21-32 mmol/L Anion Gap 8.0 3-11 mmol/L Blood Urea Nitrogen 11 7-18 mg/dl Creatinine 1.30 0.60-1.40 mg/dl Est Creatinine Clear Calc Drug Dose 108.6 ml/min Estimated GFR () 90.4 Estimated GFR (Non- 78.0 BUN/Creatinine Ratio 8.8 10-20 Random Glucose 77 70-99 mg/dl Calcium Level 8.4 8.5-10.1 mg/dl Total Bilirubin 0.3 0.2-1 mg/dl Direct Bilirubin < 0.1 0-0.2 mg/dl Aspartate Amino Transf (AST/SGOT) 27 15-37 U/L Alanine Aminotransferase (ALT/SGPT) 58 12-78 U/L Alkaline Phosphatase 91 45-117 U/L Total Protein 7.2 6.4-8.2 gm/dl Albumin 3.8 3.4-5.0 gm/dl Patient was hydrated with normal saline and given 4 mg of Zofran IV for nausea; he was offered pain medications and refused. Patient was reassessed multiple times her stay in the emergency department. Patient's case was reviewed with Dr. Flores; we agreed on diagnostic approach, treatment, disposition and plan. Patient was educated about tonight's findings and instructed on his treatment plan; he verbalizes understanding and agreement with this plan. Clinical Impression: First and second-degree sunburn. Nausea/vomiting. Decision-Making: Initially my differential diagnosis I considered dehydration, thermal castellano, underlying infection and other causes. Disposition: Patient discharged home in stable condition accompanied by his fiance and child; prior to departure he was reassessed and subjectively reported that he was pain and symptom-free. Plan: Patient was encouraged to continue any current medications that were prescribed by his primary care providers. Patient was encouraged to use 650 mg of ibuprofen every 6 hours as needed for pain. Patient was prescribed and instructed to use 4 mg of Zofran every 6 hours as needed for nausea/vomiting. Patient was encouraged to use cool compresses or towels on his sunburn. Patient was encouraged to stay well-hydrated with increased clear fluids. Patient was encouraged to avoid sun until resolution of his sunburn and then when reexposed use a much higher protection factor. Patient was encouraged to follow-up with his family doctor because his blood pressure was elevated today. Patient was encouraged return to the ED for uncontrolled pain, fevers, worsening vomiting or any new/concerning symptoms.
== END 2016-09-10 21:33 | disposition home or self-care (01) ==
LOC: C.EDB 18:28 → C.EDD 21:33
DX: L55.1 Sunburn of second degree (principal); R11.2 Nausea with vomiting, unspecified; I10 Essential (primary) hypertension; E03.9 Hypothyroidism, unspecified; F90.9 Attention-deficit hyperactivity disorder, unspecified type; F17.200 Nicotine dependence, unspecified, uncomplicated

== ENCOUNTER 2016-09-18 01:36 | Emergency (ER) | payer OTHER ==
[~2016-09-18] VITALS: Ht 162.6 cm; Wt 120.8 kg
[~2016-09-18 01:36] MED LIST changes: -DIPH-437 PO; -ONDA4TAB10 SL; +ONDA4TAB46 PO; -OXYC1TAB3 PO; -VALA500T60 PO
[2016-09-18 01:39] VITALS: Ht 162.6 cm; Wt 120.8 kg
[2016-09-18] MEDS ORDERED: ACET-1256 PO (02:00)
[2016-09-18] MEDS ORDERED: METOCLOPRAMIDE HCL INJ 5 MG/ML 2 ML VIAL IV STA (02:10)
[2016-09-18] MEDS ORDERED: SODIUM CHLORIDE 0.9% 1000ML 2,000 ML IV STA (02:10)
[2016-09-18] MEDS ORDERED: DiphenhydrAMINE HCL 50 MG/ML VIAL IV STA (02:10)
[2016-09-18] MEDS ORDERED: RANITIDINE HCL 50 MG/100 ML D5W IV STA (02:10)
[2016-09-18 03:21] LABS: BUN/CREATININE RATIO 10.6 (10-20); CREATININE 0.96 mg/dl (0.60-1.40); POTASSIUM 3.8 mmol/L (3.5-5.1)
[2016-09-18 03:28] LABS: BASO % 0.2 %; BASO ABS # 0.02 K/uL (0-0.2); COMPLETE YES; EOS % 1.3 %; HEMATOCRIT 41.4 % (42-52); IG% 0.2 %; LYMPH % 20.8 %; LYMPH ABS # 2.37 K/uL (1.2-3.4); MEAN CELL VOLUME 91.4 fL (80-100); MEAN CORPUSCULAR HEMOGLOBIN 30.7 pg (25-34); MEAN CORPUSCULAR HGB CONC 33.6 g/dl (32-36); MEAN PLATELET VOLUME 9.1 fL (7.4-10.4); MONO % 10.6 %; NEUT % 66.9 %; PLATELET COUNT 311 K/uL (130-400); RED BLOOD COUNT 4.53 M/uL (4.7-6.1); WHITE BLOOD COUNT 11.37 K/uL (4.8-10.8)
[2016-09-18 03:30] LABS: CALCIUM 8.8 mg/dl (8.5-10.1)
--- NOTE | 2016-09-18 03:36 | EMERGENCY ROOM VISIT NOTE ---
History First contact with patient: 02:07 Chief Complaint: NAUSEA Stated Complaint: NAUSEA,FEVER,DIZZYNESS,BODY PAIN Nursing Triage Summary: c/o nausea since this am. General aches and pains History of Present Illness The patient is a 20 year old male who presents to the Emergency Room with complaints of nausea, vomiting, diarrhea with subjective fever and chills for the past day. No one else is sick. No bad food exposure. Patient denies chest pain, dyspnea, abdominal pain, headache, neck stiffness, vertigo, cough, congestion. He cannot keep fluids down. No well water. No recent antibiotics. Review of Systems See HPI for pertinent positives & negatives. A total of 10 systems reviewed and were otherwise negative. Past Medical/Surgical History Medical Problems: (1) ADHD (attention deficit hyperactivity disorder) (2) Attn Deficit W Hyperact (3) Congenital obstruction of ureteropelvic junction (4) Depression (5) Developmental articulation disorder (6) Diabetes mellitus (7) H/o seizures (8) History of diabetes mellitus (9) Hypertension Nos (10) Hypothyroidism (11) Hypothyroidism Nos (12) Lumbago (13) Tobacco Use Disorder Surgical Problems: (1) S/P orchiopexy (2) S/p repair of lip (3) S/p revision of kidney/ureter (4) S/P tonsillectomy and adenoidectomy Family History No pertinent family history Social History Smoking Status: Current Every Day Smoker Alcohol Use: none Drug Use: none Marital Status: Housing Status: lives with family Occupation Status: employed Current/Historical Medications Scheduled PRN Acetaminophen (Tylenol), 1,000 MG PO Q4 PRN for Pain or Fever Ondansetron Hcl (Zofran), 4 MG PO Q6H PRN for Nausea or Vomiting Allergies Coded Allergies: Lamotrigine (Verified Allergy, Mild, RASH, 09/18/16) Uncoded Allergies: PROVOLONE CHEESE (Allergy, Severe, ANAPHYLAXIS, 01/13/16) Physical Exam Vital Signs Date Time Temp Pulse Resp B/P (MAP) Pulse Ox O2 Delivery O2 Flow Rate FiO2 09/18/16 02:45 77 16 110/80 98 93 126/82 93 119/60 09/18/16 01:39 37.2 100 18 142/90 96 Room Air Physical Exam VITALS: Vitals are noted on the nurse's note and reviewed by myself. Vital signs stable. GENERAL: Pleasant male, in no acute distress, nondiaphoretic, well-developed well-nourished. SKIN: The skin was without rashes, erythema, edema, or bruising. There is no tenting of the skin. Capillary reflex less than 2 seconds. HEAD: Normocephalic atraumatic. EARS: External auditory canals clear, tympanic membranes pearly odom without erythema or effusion bilaterally. EYES: Pupils equal round and reactive to light and accommodation. Conjunctivae without injection, sclerae without icterus. Extraocular movements intact. NOSE: Patent, turbinates without inflammation or discharge. No sinus tenderness. MOUTH: Mucous membranes mildly dry. Pharynx without erythema or exudate. Uvula midline. Airway patent. Tongue does not deviate. NECK: Supple without nuchal rigidity. No lymphadenopathy. No thyromegaly. Cervical spine is nontender. No JVD. HEART: Regular rate and rhythm without murmurs gallops or rubs. LUNGS: Clear to auscultation bilaterally without wheezes, rales or rhonchi. No dullness to percussion. No retractions or accessory muscle use. ABDOMEN: Positive bowel sounds x 4. Normal tympanic percussion. Soft, nontender, without masses or organomegaly. Levi sign negative. No guarding or rebound tenderness. No CVA tenderness MUSCULOSKELETAL: No muscle atrophy, erythema, or edema noted. NEURO: Patient was alert and oriented to person place and time. Normal sensation to light and sharp touch. No focal neurological deficits. Medical Decision & Procedures Laboratory Results 09/18/16 02:25 Test 09/18/16 02:25 Anion Gap 7.0 mmol/L (3-11) Est Creatinine Clear Calc Drug Dose 144.4 ml/min Estimated GFR () 130.4 Estimated GFR (Non- 112.5 BUN/Creatinine Ratio 10.6 (10-20) Medications Administered Medications (Trade) Dose Ordered Sig/[place] Route Start Time Stop Time Status Last Admin Dose Admin Metoclopramide HCl (Reglan Inj) 10 mg NOW STAT IV 09/18/16 02:10 09/18/16 02:11 DC 09/18/16 02:31 10 MG Diphenhydramine HCl (Benadryl Inj) 12.5 mg NOW STAT IV 09/18/16 02:10 09/18/16 02:11 DC 09/18/16 02:31 12.5 MG Sodium Chloride 2,000 ml @ 999 mls/hr Q2H1M STAT IV 09/18/16 02:10 09/18/16 04:10 09/18/16 02:32 999 MLS/HR Ranitidine HCl (zANTac IV) 50 mg NOW STAT IV 09/18/16 02:10 09/18/16 02:11 DC 09/18/16 02:31 50 MG ED Course Prior records/ancillary studies reviewed. Triage Nursing notes reviewed. Additional history obtained from the family. The patient's history was concerning for nausea, vomiting, diarrhea, and abdominal pain. Differential diagnosis: Etiologies such as gastroenteritis, food borne illness, infections, appendicitis , diverticulitis, inflammatory bowel disease, obstruction, GI bleed, biliary pathology, as well as others were entertained. Physical examination findings: As above. Abdominal examination revealed no tenderness. Vital signs reviewed and revealed stable. ER treatment provided: IV hydration 2 L NSS. reglan, benadryl, zantac, NSS On reassessment the patient felt better. Patient was tolerating p.o. intake. Diagnostics interpretation by me: The labs revealed mild leukocytosis, mild anemia. This appears to be consistent with vomiting and diarrhea most likely viral in etiology. Patient is well-appearing. He did not have acute abdomen on exam. He is tolerating fluids. He was advised to clear liquid diet today and then progress as tolerated to bland diet tomorrow. He was advised to follow-up family care in a few days or here in the ER sooner for abdominal pain, fevers, vomiting, worsening signs or symptoms or as needed. By the evaluation outlined above emergent etiologies such as appendicitis, diverticulitis, obstruction, cardiac sources, mesenteric ischemia, aortic pathology, inflammatory bowel disease, renal colic, PUD, biliary pathology, UTI, as well as others were deemed relatively unlikely. The pt informed about the findings as listed above. All questions were answered and pleased with the treatment. Return instructions were outlined and the patient was discharged in stable condition. Outpatient prescription management: Zofran Referral: The patient was referred to their primary care physician for follow-up in 2 to 3 days for a recheck of the current condition. Case reviewed with my Attending Medical Decision as above Impression Primary Impression: Nausea vomiting and diarrhea Departure Information Dispostion Home / Self-Care Condition GOOD Referrals Makayla, Christofer E.,III,M.D. (PCP) Patient Instructions My [facility] Additional Instructions DO NOT drive, drink alcohol, operate machinery, or perform dangerous activities today. You were given medications in the ER that can affect your ability to safely function or operate a vehicle. Zofran(odansetron) tablets 4mg: Take one and allow it to dissolve in your mouth every four to six hours as needed for nausea or vomiting. Ibuprofen(Motrin, Advil) may be used for fever or pain. Use 600mg every six hours as needed. Take with food. Avoid using more than 2400mg in a 24 hour period. Do not use 2400mg per day for more than three consecutive days without physician direction. Prolonged inappropriate use can lead to stomach upset or ulcers. (AND/OR) Acetaminophen(Tylenol) may be used for fever or pain. Use 1000mg every six hours as needed. Avoid using more than 3000mg in a 24 hour period. Rest and drink plenty of fluids as tolerated. Slow sips of water or sports drinks are recommended instead of large amounts all at once. Continue current medications. Once your stomach is settled start with a clear liquid diet (jello, soup broth, etc.) and then advance as tolerated. You should avoid full, heavy meals for about 24 hrs from the time your symptoms resolved. Return to the ER for persistent vomiting, fevers, abdominal pain, chest pains, difficulty breathing, black or bloody stools, worsening of your condition, or as needed. Follow up with your primary physician in 2-3 days for a recheck of your current condition.
[2016-09-18] MEDS ORDERED: ONDANSETRON HOME PACK 4MG OD TAB PO ONE (03:45)
[2016-09-18 04:05] VITALS: BP 137/78; PULSE 81; TEMP 37; O2SAT 98
== END 2016-09-18 04:05 | disposition home or self-care (01) ==
LOC: C.EDB 01:37
DX: R11.2 Nausea with vomiting, unspecified (principal); R19.7 Diarrhea, unspecified; F90.9 Attention-deficit hyperactivity disorder, unspecified type; F32.9 Major depressive disorder, single episode, unspecified; F80.0 Phonological disorder; Z83.3 Family history of diabetes mellitus; Z82.49 Family history of ischemic heart disease and other diseases of the circulatory system; E03.9 Hypothyroidism, unspecified; F17.210 Nicotine dependence, cigarettes, uncomplicated

== ENCOUNTER 2016-09-20 23:00 | Emergency (ER) | payer OTHER ==
[~2016-09-20] VITALS: Ht 162.6 cm; Wt 120.8 kg
[~2016-09-20 23:00] MED LIST changes: +ACET-1256 PO
[2016-09-20 23:12] VITALS: TEMP 37.3; Ht 162.6 cm; Wt 120.8 kg
[2016-09-20] MEDS ORDERED: DiphenhydrAMINE HCL 50 MG/ML VIAL IV STA (23:30)
[2016-09-20] MEDS ORDERED: LIDOCAINE HCL 2% VISC SOLN 20 ML UDC PO STA (23:30)
[2016-09-20] MEDS ORDERED: METOCLOPRAMIDE HCL INJ 5 MG/ML 2 ML VIAL IV STA (23:30)
[2016-09-20] MEDS ORDERED: ALUMINUM/MAGNESIUM SUSP 30 ML UDC PO STA (23:30)
[2016-09-20] MEDS ORDERED: SODIUM CHLORIDE 0.9% 1000ML 2,000 ML IV STA (23:30)
[2016-09-20] MEDS ORDERED: ALBUT/IPRATROP 3MG/0.5MG NEB 3 ML VIAL INH STA (23:33)
[2016-09-21 00:09] LABS: BASO % 0.4 %; BASO ABS # 0.05 K/uL (0-0.2); COMPLETE YES; EOS % 1.4 %; HEMATOCRIT 42.4 % (42-52); IG% 0.3 %; LYMPH % 23.9 %; LYMPH ABS # 3.19 K/uL (1.2-3.4); MEAN CORPUSCULAR HGB CONC 35.1 g/dl (32-36); MEAN PLATELET VOLUME 8.9 fL (7.4-10.4); MONO % 9.9 %; NEUT % 64.1 %; PLATELET COUNT 342 K/uL (130-400); RED BLOOD COUNT 4.66 M/uL (4.7-6.1); WHITE BLOOD COUNT 13.37 K/uL (4.8-10.8)
[2016-09-21 00:13] LABS: URINE APPEARANCE CLEAR (CLEAR); URINE BILIRUBIN NEG (NEG); URINE COLOR DK YELLOW; URINE NITRITE NEG (NEG); URINE PH 5.5 (4.5-7.5); URINE SPECIFIC GRAVITY 1.034 (1.000-1.030); UROBILINOGEN NEG (NEG)
[2016-09-21 00:19] LABS: MANUAL MICROSCOPIC REQUIRED? NO; REVIEW REQ? NO
[2016-09-21 00:25] LABS: ALT/SGPT 76 U/L (12-78); BLOOD UREA NITROGEN 10 mg/dl (7-18); BUN/CREATININE RATIO 9.3 (10-20); CALCIUM 9.9 mg/dl (8.5-10.1); CARBON DIOXIDE 29 mmol/L (21-32); CHLORIDE 102 mmol/L (98-107); GLUCOSE 87 mg/dl (70-99); POTASSIUM 4.1 mmol/L (3.5-5.1); SODIUM 138 mmol/L (136-145)
[2016-09-21 00:28] LABS: ALKALINE PHOSPHATASE 104 U/L (45-117); AST/SGOT 31 U/L (15-37)
[2016-09-21 00:42] VITALS: BP 142/80; PULSE 91; O2SAT 96
[2016-09-21] MEDS ORDERED: AZITHROMYCIN 250 MG TAB PO STA (00:47)
[2016-09-21] MEDS ORDERED: ALBUTEROL HFA 8 GM INHALER INH STA (00:47)
[2016-09-21] MEDS ORDERED: ONDANSETRON HOME PACK 4MG OD TAB PO ONE (01:00)
[2016-09-21] MEDS ORDERED: AZIT-60 PO (01:02)
[2016-09-21] MEDS ORDERED: ONDA4TAB10 SL (01:02)
--- NOTE | 2016-09-21 02:49 | EMERGENCY ROOM VISIT NOTE ---
History First contact with patient: 23:17 Chief Complaint: THROAT PAIN/INJURY Stated Complaint: COUGH,SORETHROAT,FATIGUE,VOMITING,WEAK,CHEST PAIN History of Present Illness The patient is a 20 year old male who presents to the Emergency Room with complaints of cough, sore throat, fatigue, vomiting for the past few days who seen here the other day with vomiting and diarrhea. Patient says the diarrhea has resolved and was feeling slightly better but then symptoms came back again. Patient continues to smoke. Patient denies abdominal pain, urinary symptoms, neck stiffness, earache, syncope. No sick contacts. Review of Systems See HPI for pertinent positives & negatives. A total of 10 systems reviewed and were otherwise negative. Past Medical/Surgical History Medical Problems: (1) ADHD (attention deficit hyperactivity disorder) (2) Attn Deficit W Hyperact (3) Congenital obstruction of ureteropelvic junction (4) Depression (5) Developmental articulation disorder (6) Diabetes mellitus (7) H/o seizures (8) History of diabetes mellitus (9) Hypertension Nos (10) Hypothyroidism (11) Hypothyroidism Nos (12) Lumbago (13) Tobacco Use Disorder Surgical Problems: (1) S/P orchiopexy (2) S/p repair of lip (3) S/p revision of kidney/ureter (4) S/P tonsillectomy and adenoidectomy Family History No pertinent family history Social History Smoking Status: Current Every Day Smoker Alcohol Use: none Drug Use: none Marital Status: Housing Status: lives with family Occupation Status: employed Current/Historical Medications Scheduled Azithromycin (Zithromax), 250 MG PO DAILY Ondasetron Odt (Zofran Odt), 4 MG SL Q6H Scheduled PRN Acetaminophen (Tylenol), 1,000 MG PO Q4 PRN for Pain or Fever Ondansetron Hcl (Zofran), 4 MG PO Q6H PRN for Nausea or Vomiting Allergies Coded Allergies: Lamotrigine (Verified Allergy, Mild, RASH, 09/20/16) Uncoded Allergies: PROVOLONE CHEESE (Allergy, Severe, ANAPHYLAXIS, 01/13/16) Physical Exam Vital Signs Date Time Temp Pulse Resp B/P (MAP) Pulse Ox O2 Delivery O2 Flow Rate FiO2 09/21/16 00:42 91 18 142/80 96 Room Air 09/20/16 23:55 Room Air 09/20/16 23:12 37.3 89 18 148/102 97 Room Air Pain Rating (0-10): 2.0 Physical Exam VITALS: Vitals are noted on the nurse's note and reviewed by myself. Vital signs stable. GENERAL: Pleasant male coughing, in no acute distress, nondiaphoretic, well- developed well-nourished. SKIN: The skin was without rashes, erythema, edema, or bruising. There is no tenting of the skin. Capillary reflex less than 2 seconds. HEAD: Normocephalic atraumatic. EARS: External auditory canals clear, tympanic membranes pearly odom without erythema or effusion bilaterally. EYES: Pupils equal round and reactive to light and accommodation. Conjunctivae without injection, sclerae without icterus. Extraocular movements intact. NOSE: Patent, turbinates without inflammation or discharge. No sinus tenderness. MOUTH: Mucous membranes moist. Pharynx without erythema or exudate. Uvula midline. Airway patent. Tongue does not deviate. NECK: Supple without nuchal rigidity. No lymphadenopathy. No thyromegaly. Cervical spine is nontender. No JVD. No meningeal signs HEART: Regular rate and rhythm without murmurs gallops or rubs. LUNGS: Mild diffuse end expiratory wheezes, without rales or rhonchi. No dullness to percussion. No retractions or accessory muscle use. ABDOMEN: Positive bowel sounds x 4. Normal tympanic percussion. Soft, nontender, without masses or organomegaly. Levi sign negative. No guarding or rebound tenderness. No CVA tenderness MUSCULOSKELETAL: No muscle atrophy, erythema, or edema noted. NEURO: Patient was alert and oriented to person place and time. Normal sensation to light and sharp touch. No focal neurological deficits. Medical Decision & Procedures Laboratory Results 09/20/16 23:13 Red Blood Count 4.66, Mean Corpuscular Volume 91.0, Mean Corpuscular Hemoglobin 32.0, Mean Corpuscular Hemoglobin Concent 35.1, Mean Platelet Volume 8.9, Neutrophils (%) (Auto) 64.1, Lymphocytes (%) (Auto) 23.9, Monocytes (%) (Auto) 9.9, Eosinophils (%) (Auto) 1.4, Basophils (%) (Auto) 0.4, Neutrophils # (Auto) 8.57, Lymphocytes # (Auto) 3.19, Monocytes # (Auto) 1.33, Eosinophils # (Auto) 0.19, Basophils # (Auto) 0.05 09/20/16 23:13 Test 09/20/16 23:13 White Blood Count 13.37 K/uL (4.8-10.8) Red Blood Count 4.66 M/uL (4.7-6.1) Hemoglobin 14.9 g/dL (14.0-18.0) Hematocrit 42.4 % (42-52) Mean Corpuscular Volume 91.0 fL (80-100) Mean Corpuscular Hemoglobin 32.0 pg (25-34) Mean Corpuscular Hemoglobin Concent 35.1 g/dl (32-36) Platelet Count 342 K/uL (130-400) Mean Platelet Volume 8.9 fL (7.4-10.4) Neutrophils (%) (Auto) 64.1 % Lymphocytes (%) (Auto) 23.9 % Monocytes (%) (Auto) 9.9 % Eosinophils (%) (Auto) 1.4 % Basophils (%) (Auto) 0.4 % Neutrophils # (Auto) 8.57 K/uL (1.4-6.5) Lymphocytes # (Auto) 3.19 K/uL (1.2-3.4) Monocytes # (Auto) 1.33 K/uL (0.11-0.59) Eosinophils # (Auto) 0.19 K/uL (0-0.5) Basophils # (Auto) 0.05 K/uL (0-0.2) RDW Standard Deviation 42.3 fL (36.4-46.3) RDW Coefficient of Variation 12.7 % (11.5-14.5) Immature Granulocyte % (Auto) 0.3 % Immature Granulocyte # (Auto) 0.04 K/uL (0.00-0.02) Urine Color DK YELLOW Urine Appearance CLEAR (CLEAR) Urine pH 5.5 (4.5-7.5) Urine Specific [place] 1.034 (1.000-1.030) Urine Protein NEG (NEG) Urine Glucose (UA) NEG (NEG) Urine Ketones TRACE (NEG) Urine Occult Blood NEG (NEG) Urine Nitrite NEG (NEG) Urine Bilirubin NEG (NEG) Urine Urobilinogen NEG (NEG) Urine Leukocyte Esterase NEG (NEG) Anion Gap 7.0 mmol/L (3-11) Est Creatinine Clear Calc Drug Dose 126.0 ml/min Estimated GFR () 110.6 Estimated GFR (Non- 95.5 BUN/Creatinine Ratio 9.3 (10-20) Calcium Level 9.9 mg/dl (8.5-10.1) Total Bilirubin 0.2 mg/dl (0.2-1) Direct Bilirubin < 0.1 mg/dl (0-0.2) Aspartate Amino Transf (AST/SGOT) 31 U/L (15-37) Alanine Aminotransferase (ALT/SGPT) 76 U/L (12-78) Alkaline Phosphatase 104 U/L (45-117) Total Protein 8.3 gm/dl (6.4-8.2) Albumin 4.1 gm/dl (3.4-5.0) Lipase 174 U/L (73-393) Medications Administered Medications (Trade) Dose Ordered Sig/[place] Route Start Time Stop Time Status Last Admin Dose Admin Lidocaine HCl (Viscous Lidocaine 2% Soln) 10 ml NOW STAT PO 09/20/16 23:30 09/20/16 23:32 DC 09/20/16 23:43 10 ML Al Hydroxide/Mg Hydroxide (Maalox Susp) 30 ml NOW STAT PO 09/20/16 23:30 09/20/16 23:32 DC 09/20/16 23:43 30 ML Metoclopramide HCl (Reglan Inj) 10 mg NOW STAT IV 09/20/16 23:30 09/20/16 23:32 DC 09/20/16 23:44 10 MG Diphenhydramine HCl (Benadryl Inj) 25 mg NOW STAT IV 09/20/16 23:30 09/20/16 23:32 DC 09/20/16 23:44 25 MG Sodium Chloride 2,000 ml @ 999 mls/hr Q2H1M STAT IV 09/20/16 23:30 09/21/16 01:22 DC 09/20/16 23:30 999 MLS/HR Albuterol/ Ipratropium (Duoneb) 3 ml NOW STAT INH 09/20/16 23:33 09/20/16 23:34 DC 09/20/16 23:44 3 ML Albuterol (Ventolin Hfa Inhaler) 2 puffs ONE STAT INH 09/21/16 00:47 09/21/16 00:48 DC 09/21/16 00:47 2 PUFFS Azithromycin (Zithromax Tab) 500 mg NOW STAT PO 09/21/16 00:47 09/21/16 00:48 DC 09/21/16 00:47 500 MG Ondansetron HCl (ZOFRAN ODT 4MG Home Pack) 1 homepack UD ONCE PO 09/21/16 01:00 09/21/16 01:01 DC 09/21/16 01:00 1 HOMEPACK ED Course Prior records/ancillary studies reviewed. Triage Nursing notes reviewed. Additional history obtained from family. The patient's history was concerning for a cough, vomiting and sore throat. Differential diagnosis: Etiologies such as bronchitis, gastritis, viral syndrome, tonsillitis, streptococcal pharyngitis, mononucleosis, peritonsillar abscess, retropharyngeal abscess, otitis, pneumonia, influenza, as well as others were entertained. ER treatment provided: GI cocktail, nebulizer On reassessment the patient felt better. Diagnostics interpreted by me: The labs revealed leukocytosis, negative strep test Imaging studies: Chest x-ray with peribronchial thickening with no acute consolidation or pneumothorax per my interpretation This appears to be consistent with Bronchitis with vomiting. Patient is advised take medications as directed and to follow-up family care in a few days or here in the ER sooner for fevers, difficulty breathing, vomiting, worsening signs or symptoms or as needed. Patient was tolerating fluids. He felt better. He requested to leave. He is strongly encouraged to quit smoking. He did not have acute abdomen on exam. No signs of meningitis. By the evaluation outlined above emergent etiologies such as peritonsillar abscess, retropharyngeal abscess, otitis, pneumonia, meningitis, urinary tract infection , sepsis, bacteremia, as well as others were deemed relatively unlikely. The pt informed about the findings as listed above. All questions were answered and pleased with the treatment. Return instructions were outlined and the patient was discharged in stable condition. Outpatient prescription management: Zithromax, Zofran Referral: The patient was referred back to their primary care physician for follow-up in 2 to 3 days for a recheck of the current condition. Case reviewed with my attending Medical Decision As above Impression Primary Impression: Acute bronchitis Additional Impression: Vomiting Departure Information Dispostion Home / Self-Care Condition GOOD Prescriptions Ondasetron Odt (ZOFRAN ODT) 4 Mg Tab 4 MG SL Q6H, #10 TAB Prov: Yael Isabel .NAM 09/21/16 Azithromycin (ZITHROMAX) 250 Mg Tab 250 MG PO DAILY, #4 TAB Prov: Yael Isabel PA-C 09/21/16 Referrals Christofer Benavides III, M.D. (PCP) Forms WORK / SCHOOL INSTRUCTIONS, HOME CARE DOCUMENTATION FORM, IMPORTANT VISIT INFORMATION Patient Instructions Bronchitis Acute, Vomiting - [facility], My [facility] Additional Instructions DO NOT drive, drink alcohol, operate machinery, or perform dangerous activities today. You were given medications in the ER that can affect your ability to safely function or operate a vehicle. Albuterol Inhaler: Take 2 puffs four times daily for five days, then as needed. Azithromycin(Zithromax) 250mg: Take one a day for 4 additional days. All antibiotics can cause diarrhea. If this occurs and you feel worse or it does not resolve in 1-2 days follow up with your doctor or return to the Emergency Department as this could be signs of serious underlying problems. Zofran(odansetron) tablets 4mg: Take one and allow it to dissolve in your mouth every four to six hours as needed for nausea or vomiting. Ibuprofen(Motrin, Advil) may be used for fever or pain. Use 600mg every six hours as needed. Take with food. Avoid using more than 2400mg in a 24 hour period. Do not use 2400mg per day for more than three consecutive days without physician direction. Prolonged inappropriate use can lead to stomach upset or ulcers. (AND/OR) Acetaminophen(Tylenol) may be used for fever or pain. Use 1000mg every six hours as needed. Avoid using more than 3000mg in a 24 hour period. Rest and drink plenty of fluids as tolerated. Slow sips of water or sports drinks are recommended instead of large amounts all at once. Continue current medications. Once your stomach is settled start with a clear liquid diet (jello, soup broth, etc.) and then advance as tolerated. You should avoid full, heavy meals for about 24 hrs from the time your symptoms resolved. Return to the ER for persistent vomiting, fevers, abdominal pain, chest pains, difficulty breathing, black or bloody stools, worsening of your condition, or as needed. Follow up with your primary physician in 2-3 days for a recheck of your current condition. Problem Qualifiers Primary Impression: Acute bronchitis Bronchitis organism: unspecified organism Qualified Codes: J20.9 - Acute bronchitis, unspecified Additional Impression: Vomiting Vomiting type: unspecified Vomiting Intractability: non-intractable Nausea presence: with nausea Qualified Codes: R11.2 - Nausea with vomiting, unspecified
--- NOTE | 2016-09-21 07:21 | DIAGNOSTIC IMAGING REPORT ---
TWO VIEW CHEST CLINICAL HISTORY: Cough. FINDINGS: PA and lateral chest radiographs are compared to study dated 01/13/2016. The PA view is degraded by apical lordotic positioning. The cardiomediastinal silhouette is unremarkable. The lungs and pleural spaces are clear. There is no pneumothorax. The bony thorax appears intact. IMPRESSION: No active disease in the chest. Electronically signed by: Abel Downing M.D. 09/21/2016 7:19 AM Dictated Date/Time: 09/21/2016 7:19 AM
== END 2016-09-21 01:13 | disposition home or self-care (01) ==
LOC: C.EDB 23:01 → C.EDA 09-21 01:13
DX: J20.9 Acute bronchitis, unspecified (principal); R11.2 Nausea with vomiting, unspecified; F17.200 Nicotine dependence, unspecified, uncomplicated; F90.1 Attention-deficit hyperactivity disorder, predominantly hyperactive type; Q62.39 Other obstructive defects of renal pelvis and ureter; F32.9 Major depressive disorder, single episode, unspecified; E11.9 Type 2 diabetes mellitus without complications; I10 Essential (primary) hypertension; E03.9 Hypothyroidism, unspecified; M54.5 Low back pain; Z86.69 Personal history of other diseases of the nervous system and sense organs

== ENCOUNTER 2016-09-28 16:45 | Emergency (ER) | payer OTHER ==
[~2016-09-28] VITALS: Ht 162.6 cm; Wt 120.0 kg
[~2016-09-28 16:45] MED LIST changes: +AZIT250T5 PO; +ONDA4TAB10 SL
[2016-09-28 16:49] VITALS: TEMP 36.6; Ht 162.6 cm; Wt 120.0 kg
--- NOTE | 2016-09-28 17:12 | DIAGNOSTIC IMAGING REPORT ---
RIGHT HAND MIN 3 VIEWS ROUTINE CLINICAL HISTORY: Right hand pain. COMPARISON: Right hand radiographs December 15, 2015. FINDINGS: Alignment of the right hand is anatomic. Evaluation is slightly compromised due to difficulty positioning. No fracture is identified. There may be soft tissue swelling of the fourth finger. IMPRESSION: No acute fracture or dislocation of the right hand. Electronically signed by: Nile Ruvalcaba M.D. 09/28/2016 5:11 PM Dictated Date/Time: 09/28/2016 5:09 PM
[2016-09-28 18:25] VITALS: BP 133/74; PULSE 67; O2SAT 98
--- NOTE | 2016-10-01 14:56 | EMERGENCY ROOM VISIT NOTE ---
ED Visit Note First contact with patient: 17:39 Chief Complaint: I think I might of broken my right hand. History of Present Illness: Mr. Bridges is a 20-year-old white male who ambulates into the ED accompanied by female friend complaining of right hand pain over the third and fourth MCP joint. Patient reports approximately 20 minutes before he arrived in the emergency department he became angry at his and punched a wall. He reports immediately had pain over the third and fourth MCP joint of the right hand. Currently he describes his pain as a sharp and throbbing sensation. He rates his discomfort 5/10. Pain is nonradiating. His pain worsens with palpation of the third and fourth MCP joint and the third and fourth metacarpals. He has not identified any alleviating factors related to the pain. He has not taken any medications for pain prior to arrival at the hospital. He denies any associated symptoms including elbow pain, forearm pain, wrist pain, hand weakness/numbness/tingling. Additionally he denies any previous significant injuries or surgeries to the right hand. Review of Systems: As noted above in history of present illness. At least body systems were reviewed and found to be negative as noted above. Past Medical History: (1) ADHD (attention deficit hyperactivity disorder) (2) Attn Deficit W Hyperact (3) Congenital obstruction of ureteropelvic junction (4) Depression (5) Developmental articulation disorder (6) Diabetes mellitus (7) H/o seizures (8) History of diabetes mellitus (9) Hypertension Nos (10) Hypothyroidism (11) Hypothyroidism Nos (12) Lumbago (13) Tobacco Use Disorder Surgical Problems: (1) S/P orchiopexy (2) S/p repair of lip (3) S/p revision of kidney/ureter (4) S/P tonsillectomy and adenoidectomy Current Medications: Patient denies. Allergies to Medications: Lamotrigine. Social History: Patient is not employed; he feels safe in his home environment; he admits to tobacco use and denies alcohol use. Physical Examination: Vital Signs: Date Time Temp Pulse Resp B/P (MAP) Pulse Ox O2 Delivery O2 Flow Rate FiO2 09/28/16 18:25 67 18 133/74 98 09/28/16 16:49 36.6 100 18 145/78 96 Room Air GENERAL: 20-year-old male in mild distress due to pain, nontoxic-appearing, afebrile and hemodynamically stable. NEUROLOGICAL: Awake, alert and oriented to person, place and time. Answering questions appropriately and following commands. SKIN: Warm, dry and pink. Right Hand: 2 superficial abrasions over the third and fourth MCP joint. No active bleeding. RIGHT HAND: No gross bony deformity. No tenderness throughout the forearm or wrist. Mild tenderness over the distal third and fourth metacarpals and the third and fourth MCP joint. I do not appreciate any bony deformity or crepitus. There is mild swelling over the third MCP joint. He has decreased range of motion in the MCP joint due to pain and swelling. There is no decreased range of motion in the PIP or DIP joint. Throughout the hand the fingers were warm and pink and capillary refill is brisk. He was able to distinguish light sensations through all dermatomes. ED Course: Patient is assessed as noted above. Patient's medication list was reviewed. Patient was given ice for pain and comfort; he refused pain medication. Right Hand X-Rays: Were read by myself and the radiologist showing no acute fractures or dislocations. Patient's wounds were cleansed with antibacterial soap and water. Patient's right hand was placed in an ulnar gutter splint. Patient was educated about today's findings and instructed on his treatment plan ; he verbalizes understanding and agreement with this plan. Clinical Impression: Right hand pain. Superficial abrasions to his right hand. Decision-Making: Initially my differential diagnosis I considered contusion, fracture, dislocation and other causes. Disposition: Patient discharged home in stable condition accompanied by his ; prior to departure he was reassessed and subjectively reported he was pain- free. Plan: Comfort measures were discussed with the patient including rest, ice, splint use and ibuprofen and acetaminophen. Wound care and signs of infection were discussed with the patient. Patient was encouraged to follow-up with orthopedics if no better in 7-10 days. Patient was encouraged to return to the ED or follow-up with family physician for signs of infection, uncontrolled pain, worsening swelling or any new/ concerning symptoms.
== END 2016-09-28 18:27 | disposition home or self-care (01) ==
LOC: C.EDB 16:46 → C.EDD 18:27
DX: S60.511A Abrasion of right hand, initial encounter (principal); W22.09XA Striking against other stationary object, initial encounter; Y93.89 Activity, other specified; Y99.8 Other external cause status; E11.9 Type 2 diabetes mellitus without complications; I10 Essential (primary) hypertension; Z72.0 Tobacco use; Z90.89 Acquired absence of other organs; Z98.890 Other specified postprocedural states

== ENCOUNTER 2016-11-06 13:23 | Emergency (ER) | payer OTHER ==
[~2016-11-06] VITALS: Ht 162.6 cm; Wt 124.0 kg
[2016-11-06 13:27] VITALS: Ht 162.6 cm; Wt 124.0 kg
[2016-11-06] MEDS ORDERED: ACETAMINOPHEN 500 MG TAB PO STA (14:19)
[2016-11-06] MEDS ORDERED: ONDANSETRON INJ 2 MG/ML 2 ML VIAL IV PRN (14:30)
[2016-11-06] MEDS ORDERED: IBUP-1050 PO (15:04)
--- NOTE | 2016-11-06 15:33 | DIAGNOSTIC IMAGING REPORT ---
HEAD CT NONCONTRAST CT DOSE: 638.56 mGycm HISTORY: hit head + LOC TECHNIQUE: Multiaxial CT images of the head were performed without the use of intravenous contrast. Automated exposure control was utilized for this study. A dose lowering technique was utilized adhering to the principles of ALARA. Comparison: Head CT 05/03/2016. Findings: The paranasal sinuses and mastoid air cells are clear. The calvarium and skull base are intact. The ventricles and sulci are within normal limits. There is no mass, hematoma, midline shift, or acute infarct. Impression: No acute intracranial abnormality. Electronically signed by: Moises Packer M.D. 11/06/2016 3:31 PM Dictated Date/Time: 11/06/2016 3:29 PM
[2016-11-06 16:06] LABS: HEMATOCRIT 46.4 % (42-52); MEAN CELL VOLUME 90.3 fL (80-100); MEAN CORPUSCULAR HGB CONC 33.2 g/dl (32-36); MEAN PLATELET VOLUME 8.9 fL (7.4-10.4); PLATELET COUNT 366 K/uL (130-400); RED BLOOD COUNT 5.14 M/uL (4.7-6.1); WHITE BLOOD COUNT 9.59 K/uL (4.8-10.8)
--- NOTE | 2016-11-06 16:20 | EMERGENCY ROOM VISIT NOTE ---
History Report prepared by Dakota: Jose Guillen Under the Supervision of: Dr. Mir Pelaez M.D. First contact with patient: 14:16 Chief Complaint: ILLNESS Stated Complaint: PAIN ALL OVER History of Present Illness The patient is a 20 year old male who presents to the Emergency Room with complaints of a persistent illness beginning today. His symptoms include vomiting, bloody stool, hematuria, and abdominal pain. He states that he has noticed some blood in his vomit as well. The patient admits to drinking alcohol last night. He states that he was drinking vodka. He states that he fell and hit the back of his head last night and lost consciousness. He is unsure how long he was unconscious for. Nothing has improved his symptoms. The patient's mother made a petitioning statement for the patient due to suicidal ideation. The patient states that his mother is "trying to get me committed so I can get on disability". He denies any homicidal or suicidal ideation. He denies any attempts to harm himself. Source of History: patient Onset: Today Quality: other (illness) Timing: other (persistent) Modifying Factors (Relieving): other (none) Associated Symptoms: + LOC, + vomiting (with some blood), + abdominal pain, + urinary symptoms (hematuria) Note: Additional symptoms: bloody stool. Review of Systems All systems have been listed, reviewed, and are negative other than those previously mentioned. Please see Additional Medical History Sheet. Past Medical & Surgical Medical Problems: (1) ADHD (attention deficit hyperactivity disorder) (2) Attn Deficit W Hyperact (3) Congenital obstruction of ureteropelvic junction (4) Depression (5) Developmental articulation disorder (6) Diabetes mellitus (7) H/o seizures (8) History of diabetes mellitus (9) Hypertension Nos (10) Hypothyroidism (11) Hypothyroidism Nos (12) Lumbago (13) Tobacco Use Disorder Surgical Problems: (1) S/P orchiopexy (2) S/p repair of lip (3) S/p revision of kidney/ureter (4) S/P tonsillectomy and adenoidectomy Family History No pertinent family history Social History Smoking Status: Never Smoker Alcohol Use: none Drug Use: none Marital Status: Housing Status: lives with family Occupation Status: employed Current/Historical Medications Scheduled Ibuprofen (Advil), 400 MG PO UD Allergies Coded Allergies: Lamotrigine (Verified Allergy, Mild, RASH, 11/06/16) Uncoded Allergies: PROVOLONE CHEESE (Allergy, Severe, ANAPHYLAXIS, 01/13/16) BEE STINGS (Adverse Reaction, Severe, SOB, 11/06/16) Physical Exam Vital Signs Date Time Temp Pulse Resp B/P (MAP) Pulse Ox O2 Delivery O2 Flow Rate FiO2 11/06/16 15:51 70 18 140/67 94 Room Air 11/06/16 13:27 36.6 103 18 160/105 93 Room Air Physical Exam GENERAL: Patient awake, alert, oriented x 3. Patient follows commands. Patient does not appear toxic. Patient is adequately hydrated and well- nourished. SKIN: No erythema, pallor, cyanosis or rash HEENT: Normal head, pupils equal, reactive to light and accommodation. Tenderness to the mid occiput. No lumps, bumps or bruises. Ears normal. Oral cavity and posterior pharynx appear normal. Neck: Without adenopathy, no neck vein distention. LUNGS: Clear to auscultation. No wheezes, no rales, no rhonchi. HEART: No murmurs. No gallops. No rubs ABDOMEN: Obese. No masses, no rebound, no hepatomegaly or splenomegaly. EXTREMITIES: No signs of trauma. No pedal or pretibial edema. No calf or thigh tenderness. NEUROLOGIC: Cranial nerves II-XII within normal limits. No gross motor sensory function deficits. PSYCHIATRIC: The patient is awake alert oriented. He is not suicidal or homicidal. He answers questions appropriately. He has a normal affect. Medical Decision & Procedures Laboratory Results 11/06/16 15:02 11/06/16 15:02 Test 11/06/16 15:02 11/06/16 16:14 Red Blood Count 5.14 M/uL (4.7-6.1) Mean Corpuscular Volume 90.3 fL (80-100) Mean Corpuscular Hemoglobin 30.0 pg (25-34) Mean Corpuscular Hemoglobin Concent 33.2 g/dl (32-36) RDW Standard Deviation 43.7 fL (36.4-46.3) RDW Coefficient of Variation 13.2 % (11.5-14.5) Mean Platelet Volume 8.9 fL (7.4-10.4) Anion Gap 9.0 mmol/L (3-11) Est Creatinine Clear Calc Drug Dose 140.7 ml/min Estimated GFR () 124.1 Estimated GFR (Non- 107.1 BUN/Creatinine Ratio 11.5 (10-20) Calcium Level 9.6 mg/dl (8.5-10.1) Chemistry Specimen Hemolysis Ethyl Alcohol mg/dL < 3.0 mg/dl (0-3) Urine Color DK YELLOW Urine Appearance CLEAR (CLEAR) Urine pH 8.0 (4.5-7.5) Urine Specific [place] 1.028 (1.000-1.030) Urine Protein NEG (NEG) Urine Glucose (UA) NEG (NEG) Urine Ketones NEG (NEG) Urine Occult Blood NEG (NEG) Urine Nitrite NEG (NEG) Urine Bilirubin NEG (NEG) Urine Urobilinogen NEG (NEG) Urine Leukocyte Esterase NEG (NEG) Urine WBC (Auto) 1-5 /hpf (0-5) Urine RBC (Auto) 0-4 /hpf (0-4) Urine Hyaline Casts (Auto) 1-5 /lpf (0-5) Urine Epithelial Cells (Auto) 10-20 /lpf (0-5) Urine Bacteria (Auto) NEG (NEG) Urine Opiates Screen NEG (NEG) Urine Methadone, Qualitative NEG (NEG) Urine Barbiturates NEG (NEG) Urine Phencyclidine (PCP) Level NEG (NEG) Ur Amphetamine/Methamphetamine NEG (NEG) MDMA (Ecstasy) Screen NEG (NEG) Urine Benzodiazepines Screen NEG (NEG) Urine Cocaine Metabolite NEG (NEG) Urine Marijuana (THC) NEG (NEG) Laboratory results as stated above per my review. Medications Administered Medications (Trade) Dose Ordered Sig/[place] Route Start Time Stop Time Status Last Admin Dose Admin Acetaminophen (Tylenol Tab) 1,000 mg NOW STAT PO 11/06/16 14:19 11/06/16 14:21 DC 11/06/16 15:02 1,000 MG Ondansetron HCl (Zofran Inj) 4 mg Q1HWA PRN IV 11/06/16 14:30 12/06/16 14:29 11/06/16 15:20 4 MG ED Course 1417: Past medical records reviewed. The patient was evaluated in room B7. A complete history and physical examination was performed. 1419: Ordered Tylenol tab 1000 mg PO. 1430: Ordered Zofran Inj 4 mg IV. 1655: Patient is feeling much better. Labs were evaluated. CT was evaluated. The patient is not severely depressed and is not suicidal. The patient is safe to return home. I discussed care with the patient and his . Medical Decision Nurses notes reviewed. Medical history sheet reviewed. Differential diagnosis includes but is not limited to: alcohol intoxication, metabolic disorder, and closed head injury. The patient's mother had expressed some concerns to the complex case manager about his mental status. The patient and his deny any suicidal or homicidal ideation. He is not interested in coming into the hospital and at this point the patient does not meet any criteria for coming in the hospital. I do not believe the patient is at risk at this time. Multiple labs were obtained. Please see above. CT does not reveal any acute findings. The patient was able to drink fluids well here and I believe he is safe to return home. The patient needs to either avoid alcohol or drink only in moderation. Medication Reconcilliation Current Medication List: was personally reviewed by me Blood Pressure Screening Patient's blood pressure: Elevated blood pressure Blood pressure disposition: Referred to PCP Impression Primary Impression: Alcohol intoxication Scribe Attestation The scribe's documentation has been prepared under my direction and personally reviewed by me in its entirety. I confirm that the note above accurately reflects all work, treatment, procedures, and medical decision making performed by me. Departure Information Dispostion Home / Self-Care Referrals No Doctor, Assigned (PCP) Patient Instructions My [facility] Additional Instructions Drink extra nonalcohol containing fluids today. Tylenol as needed for hangover symptoms. Follow-up with your family physician and mental health caregiver. Avoid alcohol.
[2016-11-06 16:33] LABS: URINE APPEARANCE CLEAR (CLEAR); URINE BILIRUBIN NEG (NEG); URINE COLOR DK YELLOW; URINE NITRITE NEG (NEG); URINE SPECIFIC GRAVITY 1.028 (1.000-1.030); UROBILINOGEN NEG (NEG); ZZUR CULT IF INDIC CLEAN CATCH NO
[2016-11-06 16:35] LABS: MANUAL MICROSCOPIC REQUIRED? NO; REVIEW REQ? NO
[2016-11-06 16:36] LABS: SULFASALICYLIC ACID NEG (NEG)
[2016-11-06 16:40] LABS: BUN/CREATININE RATIO 11.5 (10-20); CALCIUM 9.6 mg/dl (8.5-10.1); POTASSIUM 4.2 mmol/L (3.5-5.1)
[2016-11-06 16:57] LABS: BENZODIAZEPINE, URINE NEG (NEG); COCAINE,URINE NEG (NEG); PHENCYCLIDINE, URINE NEG (NEG)
[2016-11-06 17:27] VITALS: BP 148/76; PULSE 88; TEMP 36.6; O2SAT 97
== END 2016-11-06 17:28 | disposition home or self-care (01) ==
LOC: C.EDB 13:28
DX: F10.129 Alcohol abuse with intoxication, unspecified (principal); I10 Essential (primary) hypertension; E11.9 Type 2 diabetes mellitus without complications; E03.9 Hypothyroidism, unspecified; F90.9 Attention-deficit hyperactivity disorder, unspecified type; F32.9 Major depressive disorder, single episode, unspecified; G40.909 Epilepsy, unspecified, not intractable, without status epilepticus; F17.200 Nicotine dependence, unspecified, uncomplicated; Z98.890 Other specified postprocedural states; Z88.8 Allergy status to other drugs, medicaments and biological substances

== ENCOUNTER 2017-01-12 22:51 | Emergency (ER) | payer OTHER ==
[~2017-01-12] VITALS: Ht 165.1 cm; Wt 125.2 kg
[~2017-01-12 22:51] MED LIST changes: -ACET-1256 PO; -AZIT250T5 PO; +IBUP-1050 PO; -ONDA4TAB10 SL; -ONDA4TAB46 PO
[2017-01-12 22:58] VITALS: TEMP 37; Ht 165.1 cm; Wt 125.2 kg
[2017-01-12] MEDS ORDERED: DEXAMETHASONE SOD INJ 10 MG/ML VIAL PO ONE (23:15)
[2017-01-12] MEDS ORDERED: ALBUT/IPRATROP 3MG/0.5MG NEB 3 ML VIAL INH STA (23:15)
[2017-01-12] MEDS ORDERED: PRED50TA PO (23:49)
[2017-01-12] MEDS ORDERED: DOXY100C2 PO (23:49)
[2017-01-12] MEDS ORDERED: ALBUTEROL HFA 8 GM INHALER INH STA (23:52)
[2017-01-13 00:04] VITALS: BP 134/80; PULSE 99; O2SAT 94
--- NOTE | 2017-01-13 04:30 | EMERGENCY ROOM VISIT NOTE ---
History First contact with patient: 23:09 Chief Complaint: COUGH Stated Complaint: DIZZY,COUGHING BLOOD,DIARRHEA,VOMITING Nursing Triage Summary: Pt complains of cough since yesterday. Pt concerned because his mother has pneumonia. History of Present Illness The patient is a 21 year old male who presents to the Emergency Room with complaints of cough, congestion with subjective fever and chills for the past day. Patient does smoke. Patient denies fever, sore throat, chest pain, dyspnea, abdominal pain, earache, sinus pain or congestion, vomiting, diarrhea. He is tolerating by mouth fluids and food. Other people that he's been around has been sick. Review of Systems See HPI for pertinent positives & negatives. A total of 10 systems reviewed and were otherwise negative. Past Medical/Surgical History Medical Problems: (1) ADHD (attention deficit hyperactivity disorder) (2) Attn Deficit W Hyperact (3) Congenital obstruction of ureteropelvic junction (4) Depression (5) Developmental articulation disorder (6) Diabetes mellitus (7) H/o seizures (8) History of diabetes mellitus (9) Hypertension Nos (10) Hypothyroidism (11) Hypothyroidism Nos (12) Lumbago (13) Tobacco Use Disorder Surgical Problems: (1) S/P orchiopexy (2) S/p repair of lip (3) S/p revision of kidney/ureter (4) S/P tonsillectomy and adenoidectomy Family History No pertinent family history Social History Smoking Status: Current Every Day Smoker Alcohol Use: none Drug Use: none Marital Status: Housing Status: lives with family Occupation Status: employed Current/Historical Medications Scheduled Doxycycline Hyclate (Vibramycin), 100 MG PO BID Prednisone (Prednisone), 50 MG PO DAILY Physical Exam Vital Signs Date Time Temp Pulse Resp B/P (MAP) Pulse Ox O2 Delivery O2 Flow Rate FiO2 01/13/17 00:04 99 20 134/80 94 01/12/17 22:58 37.0 101 18 161/107 97 Room Air Physical Exam VITALS: Vitals are noted on the nurse's note and reviewed by myself. Vital signs stable. GENERAL: White male with tobacco odor, in no acute distress, nondiaphoretic, well-developed well-nourished. SKIN: The skin was without rashes, erythema, edema, or bruising. There is no tenting of the skin. Capillary reflex less than 2 seconds. HEAD: Normocephalic atraumatic. EARS: External auditory canals clear, tympanic membranes pearly odom without erythema or effusion bilaterally. EYES: Pupils equal round and reactive to light and accommodation. Conjunctivae without injection, sclerae without icterus. Extraocular movements intact. NOSE: Patent, turbinates without inflammation or discharge. No sinus tenderness. MOUTH: Mucous membranes moist. Pharynx without erythema or exudate. Uvula midline. Airway patent. Tongue does not deviate. NECK: Supple without nuchal rigidity. No lymphadenopathy. No thyromegaly. Cervical spine is nontender. No JVD. HEART: Regular rate and rhythm without murmurs gallops or rubs. LUNGS: Diffuse inspiratory and end expiratory wheezes, without rales or rhonchi. No dullness to percussion. No retractions or accessory muscle use. ABDOMEN: Positive bowel sounds x 4. Normal tympanic percussion. Soft, nontender, without masses or organomegaly. Levi sign negative. No guarding or rebound tenderness. No CVA tenderness MUSCULOSKELETAL: No muscle atrophy, erythema, or edema noted. NEURO: Patient was alert and oriented to person place and time. Normal sensation to light and sharp touch. No focal neurological deficits. Medical Decision & Procedures Medications Administered Medications (Trade) Dose Ordered Sig/[place] Route Start Time Stop Time Status Last Admin Dose Admin Dexamethasone Sodium Phosphate (Decadron Inj) 10 mg NOW ONCE PO 01/12/17 23:15 01/12/17 23:17 DC 01/12/17 23:22 10 MG Albuterol/ Ipratropium (Duoneb) 3 ml NOW STAT INH 01/12/17 23:15 01/12/17 23:17 DC 01/12/17 23:22 3 ML Albuterol (Ventolin Hfa Inhaler) 2 puffs ONE STAT INH 01/12/17 23:52 01/12/17 23:53 DC 01/13/17 00:04 2 PUFFS ED Course Prior records/ancillary studies reviewed. Triage Nursing notes reviewed. Additional history obtained from friends The patient's history was concerning for a cough and congestion. Differential diagnosis: Etiologies such as bronchitis, viral syndrome, tonsillitis, streptococcal pharyngitis, mononucleosis, peritonsillar abscess, retropharyngeal abscess, otitis, pneumonia, influenza, as well as others were entertained. ER treatment provided: Nebulizer, steroids On reassessment the patient felt better. Diagnostics interpreted by me: Imaging studies: Chest x-ray with no acute consolidation, pneumothorax or free air per my interpretation This appears to be consistent with bronchitis. Patient had no signs of pneumonia. Stable vital signs. He was strongly encouraged to quit smoking. He was advised to take medications as directed and to follow-up with family care in a few days or here in the ER sooner for high fevers, difficulty breathing, chest pains, worsening signs or symptoms or as needed. By the evaluation outlined above emergent etiologies such as peritonsillar abscess, retropharyngeal abscess, otitis, pneumonia, meningitis, urinary tract infection , sepsis, bacteremia, as well as others were deemed relatively unlikely. The pt informed about the findings as listed above. All questions were answered and pleased with the treatment. Return instructions were outlined and the patient was discharged in stable condition. Outpatient prescription management: Doxycycline, prednisone Referral: The patient was referred back to their primary care physician for follow-up in 2 to 3 days for a recheck of the current condition. Medical Decision As above Medication Reconcilliation Current Medication List: was personally reviewed by me Blood Pressure Screening Patient's blood pressure: Normal blood pressure Impression Primary Impression: Acute bronchitis Departure Information Dispostion Home / Self-Care Condition GOOD Prescriptions Prednisone (Prednisone) 50 Mg Tab 50 MG PO DAILY for 4 Days, #4 TAB Prov: Yael Isabel PA-C 01/12/17 Doxycycline Hyclate (VIBRAMYCIN) 100 Mg Cap 100 MG PO BID for 7 Days, #14 CAP Prov: Yael Isabel PA-C 01/12/17 Forms HOME CARE DOCUMENTATION FORM, Work Instructions, Return To Work: 2 days IMPORTANT VISIT INFORMATION Patient Instructions Bronchitis Acute, My [facility] Additional Instructions Doxycycline 100mg: Take one pill twice daily for seven days for your infection. Take with food, but avoid dairy. Avoid prolonged sun exposure since this medication makes you temporarily more susceptible to sunburns. All antibiotics can cause diarrhea. If this occurs and you feel worse or it does not resolve in 1-2 days follow up with your doctor or return to the Emergency Department as this could be signs of serious underlying problems. Any medication can cause an allergic reaction, stop the pills immediately and return to the ER for rash, hives, breathing difficulties, or swelling. Albuterol Inhaler: Take 2 puffs four times daily for seven days, then as needed. Acetaminophen(Tylenol) may be used for fever or pain. Use 1000mg every six hours as needed. Avoid using more than 3000mg in a 24 hour period. AND/OR Ibuprofen(Motrin, Advil) may be used for fever or pain. Use 600mg every six hours as needed. Take with food. Avoid using more than 2400mg in a 24 hour period. Do not use 2400mg per day for more than three consecutive days without physician direction. Prolonged inappropriate use can lead to stomach upset or ulcers. Prednisone 50 m tablet daily for the next 4 days. Take this in the morning. This can make you shaky. Controlling your fever with Tylenol and Ibuprofen as above will make you feel better. Rest and drink plenty of fluids. Avoid strenuous activity until your symptoms resolve and your breathing returns to normal. Continue current medications. Return to the ER for chest pain, difficulty breathing, persistent fevers, vomiting, worsening of your condition, or as needed. Follow-up with family care in 2-3 days. Work Instructions Return To Work: 2 days Problem Qualifiers Primary Impression: Acute bronchitis Bronchitis organism: unspecified organism Qualified Codes: J20.9 - Acute bronchitis, unspecified
--- NOTE | 2017-01-13 06:48 | DIAGNOSTIC IMAGING REPORT ---
CHEST 2 VIEWS ROUTINE HISTORY: 21 years-old Male cough/fever acute cough and fever COMPARISON: Chest radiograph 09/21/2006 TECHNIQUE: Frontal and lateral views of the chest FINDINGS: Cardiomediastinal and hilar silhouettes are within normal limits. No pneumothorax, pleural effusion, focal airspace consolidation or overt pulmonary edema. The bones of the chest are grossly intact. Upper abdomen is unremarkable. IMPRESSION: No acute cardiopulmonary process. The above report was generated using voice recognition software. It may contain grammatical, syntax or spelling errors. Electronically signed by: Rohan Brown M.D. 01/13/2017 6:47 AM Dictated Date/Time: 01/13/2017 6:46 AM
== END 2017-01-13 00:10 | disposition home or self-care (01) ==
LOC: C.EDB 22:54
DX: J20.9 Acute bronchitis, unspecified (principal); E11.9 Type 2 diabetes mellitus without complications; I10 Essential (primary) hypertension; E03.9 Hypothyroidism, unspecified; G40.909 Epilepsy, unspecified, not intractable, without status epilepticus; F90.9 Attention-deficit hyperactivity disorder, unspecified type; F32.9 Major depressive disorder, single episode, unspecified; F17.200 Nicotine dependence, unspecified, uncomplicated; Z98.890 Other specified postprocedural states

== ENCOUNTER 2017-02-14 10:41 | Emergency (ER) | payer OTHER ==
[~2017-02-14] VITALS: Ht 165.1 cm; Wt 122.0 kg
[~2017-02-14 10:41] MED LIST changes: +DOXY100C2 PO; -IBUP-1050 PO
[2017-02-14 10:59] VITALS: TEMP 36.8; Ht 165.1 cm; Wt 122.0 kg
--- NOTE | 2017-02-14 11:48 | DIAGNOSTIC IMAGING REPORT ---
CHEST ONE VIEW PORTABLE CLINICAL HISTORY: Atypical chest pain COMPARISON STUDY: 01/12/2017 FINDINGS: The cardiac and mediastinal contours are normal. There is no evidence of focal pulmonary consolidation. There is no evidence of failure. No pleural effusions are visualized.[ IMPRESSION: No active disease in the chest. Electronically signed by: Wing Martinez M.D. 02/14/2017 11:47 AM Dictated Date/Time: 02/14/2017 11:47 AM
[2017-02-14 12:31] LABS: BASO % 0.3 %; BASO ABS # 0.02 K/uL (0-0.2); COMPLETE YES; EOS % 1.7 %; HEMATOCRIT 44.1 % (42-52); IG% 0.3 %; LYMPH % 40.1 %; LYMPH ABS # 2.59 K/uL (1.2-3.4); MEAN CELL VOLUME 91.3 fL (80-100); MEAN CORPUSCULAR HEMOGLOBIN 31.3 pg (25-34); MEAN CORPUSCULAR HGB CONC 34.2 g/dl (32-36); MEAN PLATELET VOLUME 9.1 fL (7.4-10.4); MONO % 7.3 %; NEUT % 50.3 %; PLATELET COUNT 328 K/uL (130-400); RED BLOOD COUNT 4.83 M/uL (4.7-6.1); WHITE BLOOD COUNT 6.46 K/uL (4.8-10.8)
[2017-02-14 12:51] LABS: ALKALINE PHOSPHATASE 84 U/L (45-117); ALT/SGPT 60 U/L (12-78); BLOOD UREA NITROGEN 11 mg/dl (7-18); BUN/CREATININE RATIO 10.5 (10-20); CALCIUM 8.9 mg/dl (8.5-10.1); CARBON DIOXIDE 28 mmol/L (21-32); CHLORIDE 104 mmol/L (98-107); CREATININE 1.06 mg/dl (0.60-1.40); GLUCOSE 118 mg/dl (70-99); SODIUM 139 mmol/L (136-145)
[2017-02-14 13:51] VITALS: BP 168/86; PULSE 78; O2SAT 96
--- NOTE | 2017-02-14 14:10 | EMERGENCY ROOM VISIT NOTE ---
History First contact with patient: 11:47 Chief Complaint: CARDIAC ASSESSMENT Stated Complaint: SOB,HEART HURTING,DIZZINESS History of Present Illness The patient is a 21 year old male who presents to the Emergency Room with complaints of palpitations, dizziness, difficulty breathing. He states for the past 3 days, he has been experiencing palpitations associated with pressure in the left side of his chest. He states the symptoms are worse and like a rash when he awakens. He states he feels that his heart is beating faster and faster , and this makes amount of breath. The patient states the symptoms do improve with sitting, however when he is resting, he feels like his heart will stop eating. The pain is substernal, radiates to the left. He also describes the pain is shooting up the left arm from the fingertips. He states the dyspnea feels as if his lungs are collapsing, but this is only present when he is experiencing the heart palpitations. He does report having a history of a heart murmur when he was a child, but does not recall any specific diagnosis. The patient does work at [email or web address]. He states he constantly drinks caffeine, and admits to drinking 6-8 cups of coffee every 2 hours. The patient states he also drinks caffeinated soda throughout the day. He feels that if he does not continuously drink caffeine that he will fall asleep. The patient also admits to smoking 4 packs of cigarettes per day. The patient does have a primary care provider, but he has not seen him for evaluation of this problem. His symptoms last approximately one hour at most, then improves. He states he has been having symptoms approximately 3 times per day. Review of Systems A complete 10 point review of systems was reviewed with the patient with pertinent positives and negatives as per history of present illness. All else were negative. Past Medical/Surgical History Medical Problems: (1) ADHD (attention deficit hyperactivity disorder) (2) Attn Deficit W Hyperact (3) Congenital obstruction of ureteropelvic junction (4) Depression (5) Developmental articulation disorder (6) Diabetes mellitus (7) H/o seizures (8) History of diabetes mellitus (9) Hypertension Nos (10) Hypothyroidism (11) Hypothyroidism Nos (12) Lumbago (13) Tobacco Use Disorder Surgical Problems: (1) S/P orchiopexy (2) S/p repair of lip (3) S/p revision of kidney/ureter (4) S/P tonsillectomy and adenoidectomy Family History No pertinent family history Social History Smoking Status: Current Every Day Smoker Alcohol Use: none Drug Use: none Marital Status: Housing Status: lives with family Occupation Status: employed Current/Historical Medications No Active Prescriptions or Reported Meds Physical Exam Vital Signs Date Time Temp Pulse Resp B/P (MAP) Pulse Ox O2 Delivery O2 Flow Rate FiO2 02/14/17 13:51 78 18 168/86 96 Room Air 02/14/17 12:08 80 02/14/17 11:43 81 26 144/96 96 Room Air 02/14/17 11:41 81 26 144/96 96 Room Air 02/14/17 10:59 36.8 112 20 99 Room Air Physical Exam VITALS: Vitals are noted on the nurse's note and reviewed by myself. Vital signs stable. GENERAL: This is an obese, weight 21-year-old male, in no acute distress, nondiaphoretic, well-developed well-nourished. SKIN: The skin was without rashes, erythema, edema, or bruising. There is no tenting of the skin. Capillary reflex less than 2 seconds. HEAD: Normocephalic atraumatic. EARS: External auditory canals clear, tympanic membranes pearly odom without erythema or effusion bilaterally. EYES: Pupils equal round and reactive to light and accommodation. Conjunctivae without injection, sclerae without icterus. Extraocular movements intact. NOSE: Patent, turbinates without inflammation or discharge. No sinus tenderness. MOUTH: Mucous membranes moist. Tonsils are not enlarged. Pharynx without erythema or exudate. Uvula midline. Airway patent. Tongue does not deviate. NECK: Supple without nuchal rigidity. No lymphadenopathy. No thyromegaly. Cervical spine is nontender. No JVD. HEART: Regular rate and rhythm without murmurs gallops or rubs. No tenderness on palpation of the thorax. LUNGS: Clear to auscultation bilaterally without wheezes, rales or rhonchi. No dullness to percussion. No retractions or accessory muscle use. ABDOMEN: Positive bowel sounds x 4. Normal tympanic percussion. Soft, nontender, without masses or organomegaly. Levi sign negative. No guarding or rebound tenderness. MUSCULOSKELETAL: No muscle atrophy, erythema, or edema noted. Full range of motion without joint tenderness in all extremities. No tenderness to palpation. Normal gait. Strength 5/5 throughout. NEURO: Patient was alert and oriented to person place and time. Normal sensation to light and sharp touch. Deep tendon reflexes 2+ throughout. No focal neurological deficits. Medical Decision & Procedures ER Provider Diagnostic Interpretation: CBC was leukocytosis, anemia, thrombocytopenia. CMP was without significant electrolyte, renal, or hepatic abnormality. TSH is normal at 1.9. CXR, interpreted by radiologist and reviewed by myself: CHEST ONE VIEW PORTABLE CLINICAL HISTORY: Atypical chest pain COMPARISON STUDY: 01/12/2017 FINDINGS: The cardiac and mediastinal contours are normal. There is no evidence of focal pulmonary consolidation. There is no evidence of failure. No pleural effusions are visualized.[ IMPRESSION: No active disease in the chest. Electronically signed by: Wing Martinez M.D. 02/14/2017 11:47 AM Dictated Date/Time: 02/14/2017 11:47 AM Laboratory Results 02/14/17 11:25 Red Blood Count 4.83, Mean Corpuscular Volume 91.3, Mean Corpuscular Hemoglobin 31.3, Mean Corpuscular Hemoglobin Concent 34.2, Mean Platelet Volume 9.1, Neutrophils (%) (Auto) 50.3, Lymphocytes (%) (Auto) 40.1, Monocytes (%) (Auto) 7.3, Eosinophils (%) (Auto) 1.7, Basophils (%) (Auto) 0.3, Neutrophils # (Auto) 3.25, Lymphocytes # (Auto) 2.59, Monocytes # (Auto) 0.47, Eosinophils # (Auto) 0.11, Basophils # (Auto) 0.02 02/14/17 11:25 02/14/17 13:42 Test 02/14/17 11:25 02/14/17 11:59 02/14/17 13:42 White Blood Count 6.46 K/uL (4.8-10.8) Red Blood Count 4.83 M/uL (4.7-6.1) Hemoglobin 15.1 g/dL (14.0-18.0) Hematocrit 44.1 % (42-52) Mean Corpuscular Volume 91.3 fL (80-100) Mean Corpuscular Hemoglobin 31.3 pg (25-34) Mean Corpuscular Hemoglobin Concent 34.2 g/dl (32-36) Platelet Count 328 K/uL (130-400) Mean Platelet Volume 9.1 fL (7.4-10.4) Neutrophils (%) (Auto) 50.3 % Lymphocytes (%) (Auto) 40.1 % Monocytes (%) (Auto) 7.3 % Eosinophils (%) (Auto) 1.7 % Basophils (%) (Auto) 0.3 % Neutrophils # (Auto) 3.25 K/uL (1.4-6.5) Lymphocytes # (Auto) 2.59 K/uL (1.2-3.4) Monocytes # (Auto) 0.47 K/uL (0.11-0.59) Eosinophils # (Auto) 0.11 K/uL (0-0.5) Basophils # (Auto) 0.02 K/uL (0-0.2) RDW Standard Deviation 43.3 fL (36.4-46.3) RDW Coefficient of Variation 12.9 % (11.5-14.5) Immature Granulocyte % (Auto) 0.3 % Immature Granulocyte # (Auto) 0.02 K/uL (0.00-0.02) Anion Gap 7.0 mmol/L (3-11) Est Creatinine Clear Calc Drug Dose 132.5 ml/min Estimated GFR () 114.9 Estimated GFR (Non- 99.1 BUN/Creatinine Ratio 10.5 (10-20) Calcium Level 8.9 mg/dl (8.5-10.1) Total Bilirubin 0.3 mg/dl (0.2-1) Alanine Aminotransferase (ALT/SGPT) 60 U/L (12-78) Alkaline Phosphatase 84 U/L (45-117) Creatine Kinase MB 1.3 ng/ml (0.5-3.6) Troponin I < 0.015 ng/ml (0-0.045) Total Protein 7.8 gm/dl (6.4-8.2) Albumin 3.9 gm/dl (3.4-5.0) Globulin 3.9 gm/dl (2.5-4.0) Albumin/Globulin Ratio 1.0 (0.9-2) Thyroid Stimulating Hormone (TSH) 1.920 uIu/ml (0.300-4.500) Creatine Kinase MB Ratio (0-3.0) Aspartate Amino Transf (AST/SGOT) 23 U/L (15-37) ECG Indication: chest pain, palpitations Rate (beats per minute): 88 Rhythm: normal sinus Findings: no acute ischemic change, no ectopy Comparison ECG Date: no prior available Medical Decision The patient was seen and evaluated as above. A full cardiac workup was performed which was negative. The patient was PERC- negative, so a d-dimer was not performed, as I have a very low suspicion for pulmonary embolism. The patient did feel much improved while in the emergency department. I strongly suspect that his symptoms are related to his severely unhealthy lifestyle, including drinking excessive amounts of caffeinated beverages and smoking a significant amount of cigarettes per day. I advised the patient about healthy lifestyle choices, and he states he is under a significant amount of stress. I discussed with him other options for stress relief including exercise, hobbies, and others. The patient states he will continue to quit smoking and work on decreasing his caffeine intake. I encouraged him to stay very well-hydrated. Discharge instructions were reviewed and the patient was discharged home in good condition. I did discuss the case with Dr. Goodman who is in agreement with the assessment and plan. Medication Reconcilliation Current Medication List: was personally reviewed by me Blood Pressure Screening Patient's blood pressure: Normal blood pressure Impression Primary Impression: Palpitations Departure Information Dispostion Home / Self-Care Condition GOOD Prescriptions No Active Prescriptions or Reported Meds Referrals Christofer Benavides III, M.D. (PCP) Patient Instructions ED Palpitations, My [facility] Additional Instructions You were seen in the emergency department today for heart palpitations. I do suspect this is related to your excessive caffeine and nicotine intake. As discussed, it is imperative that you cut back on caffeine and nicotine intake. Using these substances could have very severe consequences. It is imperative that you follow up with your primary care provider for further evaluation and recheck. You may need to have a equipment monitor phototypesetting placed for a few days to weeks for further evaluation and to ensure you do not have any heart arrhythmias, or abnormal heart beats. Please return to the emergency department for worsening chest pain, palpitations , difficulty breathing, or other concerning symptoms.
== END 2017-02-14 14:39 | disposition home or self-care (01) ==
LOC: C.EDB 10:42 → C.EDC 14:39
DX: R00.2 Palpitations (principal); E66.9 Obesity, unspecified; R42 Dizziness and giddiness; R07.89 Other chest pain; I10 Essential (primary) hypertension; E03.9 Hypothyroidism, unspecified; F32.9 Major depressive disorder, single episode, unspecified; F90.9 Attention-deficit hyperactivity disorder, unspecified type; F17.200 Nicotine dependence, unspecified, uncomplicated

== ENCOUNTER 2017-06-06 17:10 | Emergency (ER) | payer OTHER ==
[~2017-06-06] VITALS: Ht 165.1 cm; Wt 127.3 kg
[2017-06-06 17:16] VITALS: TEMP 36.3; Ht 165.1 cm; Wt 127.3 kg
[2017-06-06] MEDS ORDERED: SODIUM CHLORIDE 0.9% 500ML 500 ML IV STA (17:25)
[2017-06-06] MEDS ORDERED: KETOROLAC TROMETHAMINE 30 MG/ML VIAL IV STA (17:25)
[2017-06-06] MEDS ORDERED: ONDANSETRON INJ 2 MG/ML 2 ML VIAL IV STA (17:29)
[2017-06-06] MEDS ORDERED: OPTIRAY 320 IV PRN (17:45)
[2017-06-06 17:46] LABS: BASO % 0.6 %; BASO ABS # 0.05 K/uL (0-0.2); EOS % 2.9 %; EOS ABS # 0.24 K/uL (0-0.5); HEMATOCRIT 45.8 % (42-52); HEMOGLOBIN 15.7 g/dL (14.0-18.0); IG# 0.01 K/uL (0.00-0.02); LYMPH % 31.5 %; LYMPH ABS # 2.58 K/uL (1.2-3.4); MEAN CELL VOLUME 90.9 fL (80-100); MEAN CORPUSCULAR HEMOGLOBIN 31.2 pg (25-34); MEAN CORPUSCULAR HGB CONC 34.3 g/dl (32-36); MEAN PLATELET VOLUME 8.9 fL (7.4-10.4); MONO % 9.8 %; NEUT % 55.1 %; NEUT ABS # 4.52 K/uL (1.4-6.5); PLATELET COUNT 309 K/uL (130-400); RED CELL DISTRIBUTION WIDTH CV 12.7 % (11.5-14.5)
[2017-06-06 18:10] LABS: ALBUMIN 3.7 gm/dl (3.4-5.0); ALT/SGPT 52 U/L (12-78); BLOOD UREA NITROGEN 11 mg/dl (7-18); CARBON DIOXIDE 29 mmol/L (21-32); CREATININE 0.92 mg/dl (0.60-1.40); GLUCOSE 88 mg/dl (70-99); LIPASE 164 U/L (73-393); POTASSIUM 4.3 mmol/L (3.5-5.1); SODIUM 139 mmol/L (136-145)
[2017-06-06 18:13] LABS: ALKALINE PHOSPHATASE 81 U/L (45-117); AST/SGOT 20 U/L (15-37); TOTAL PROTEIN 7.8 gm/dl (6.4-8.2)
[2017-06-06] MEDS ORDERED: DiphenhydrAMINE HCL 50 MG/ML VIAL IV STA (18:34)
--- NOTE | 2017-06-06 18:44 | DIAGNOSTIC IMAGING REPORT ---
CT HEAD WITHOUT CONTRAST (CT) CLINICAL HISTORY: Severe headache, nausea, fever COMPARISON STUDY: 11/06/2016 TECHNIQUE: Axial CT of the brain is performed from the vertex to the skull base. IV contrast was not administered for this examination. A dose lowering technique was utilized adhering to the principles of ALARA. CT DOSE: FINDINGS: No intra or extra-axial mass lesions are visualized. There is no CT evidence of acute cortical infarction. There is no evidence of midline shift. There is no acute hemorrhage. No calvarial fractures are visualized. There is no evidence of pathologic ventricular dilatation. There is mild sphenoid sinus mucosal thickening/fluid IMPRESSION: 1. Mild mucosal disease within the sphenoid sinus 2. Otherwise normal noncontrast head CT. Electronically signed by: Wing Martinez M.D. 06/06/2017 6:43 PM Dictated Date/Time: 06/06/2017 6:42 PM
--- NOTE | 2017-06-06 18:53 | DIAGNOSTIC IMAGING REPORT ---
CT ABD/PELVIS IV CONTRAST ONLY CLINICAL HISTORY: Generalized abdominal pain HISTORY OF PARTIAL NEPHRECTOMY COMPARISON STUDY: 08/30/2016 TECHNIQUE: Following the IV administration of 70 mL of [id number], CT scan of the abdomen and pelvis was performed from the lung bases to the proximal femurs. Images are reviewed in the axial, sagittal, and coronal planes. IV contrast was administered without complication. A dose lowering technique was utilized adhering to the principles of ALARA. CT DOSE: FINDINGS: Lower chest: The heart is normal in size and configuration, without pericardial effusion. The lung bases and pleural spaces are clear. Liver: There is hepatic steatosis. No focal masses are visualized. Gallbladder: Unremarkable. Spleen: Normal in size and attenuation. Pancreas: Unremarkable. Adrenal glands: Unremarkable. Kidneys: Postsurgical changes involve the left kidney. There is a 2 mm lower pole left renal calculus. There is a mildly prominent left renal pelvis. There is a 1 cm right renal hypodensity consistent with a cyst Bowel: There are no transition zones to indicate bowel obstruction. There is no acute diverticulitis. The appendix appears normal. Peritoneum: There is no intraperitoneal free air or abdominal ascites. Vasculature: The abdominal aorta is normal in course and caliber. Adenopathy: None. Pelvic viscera: The bladder, and pelvic viscera are unremarkable. Skeletal structures: No destructive osseous lesions are seen. IMPRESSION: 1. No evidence of bowel obstruction. No evidence of free air 2. Normal appendix 3. Postsurgical changes involving the left kidney. Nonobstructing 2 mm left renal calculus. Electronically signed by: Wing Martinez M.D. 06/06/2017 6:51 PM Dictated Date/Time: 06/06/2017 6:46 PM
[2017-06-06 20:09] VITALS: BP 171/95; PULSE 73; O2SAT 96
--- NOTE | 2017-06-06 21:31 | EMERGENCY ROOM VISIT NOTE ---
History Report prepared by [place]: Sondra Geronimo Under the Supervision of: Dr. William Gonsalez D.O. First contact with patient: 17:18 Chief Complaint: NAUSEA Stated Complaint: MIGRAIN, CAN'T EAT OR DRINK, NAUSEA, FEVER Nursing Triage Summary: pt reports awoke this AM with nausea and vomitting , this has cont all day and pt also reports I have had a migraine all day History of Present Illness The patient is a 21 year old male who presents to the Emergency Room with complaints of persistent headache since 0600 this morning. The patient notes that he woke up with nausea and vomiting and has been unable to keep anything down to include water. He also notes a headache that began at the same time this morning. He denies any history of migraines, though reports similar headache symptoms once in a while. He reports light sensitivity. He describes the pain as sharp and stabbing behind his eyes. He currently rates his headache a 10/10 in severity. He notes abdominal pain. He has a history of left kidney surgery due to an abnormal growth. The patient has a cough, though denies it is new. Pt denies change in vision, fevers, chest pain, shortness of breath, diarrhea, or pain with urination. Source of History: patient Onset: since 0600 this morning Position: head, other Symptom Intensity: 10/10 Quality: ache, sharp, stabbing Timing: other (persistent) Associated Symptoms: + cough, + nausea, + vomiting, + abdominal pain, No fevers, No chest pain, No SOB, No diarrhea, No urinary symptoms (no pain with urination) Note: He notes light sensitivity. He denies any change in vision. Review of Systems See HPI for pertinent positives & negatives. A total of 10 systems reviewed and were otherwise negative. Past Medical & Surgical Medical Problems: (1) ADHD (attention deficit hyperactivity disorder) (2) Attn Deficit W Hyperact (3) Congenital obstruction of ureteropelvic junction (4) Depression (5) Developmental articulation disorder (6) Diabetes mellitus (7) H/o seizures (8) History of diabetes mellitus (9) Hypertension Nos (10) Hypothyroidism (11) Hypothyroidism Nos (12) Lumbago (13) Tobacco Use Disorder Surgical Problems: (1) S/P orchiopexy (2) S/p repair of lip (3) S/p revision of kidney/ureter (4) S/P tonsillectomy and adenoidectomy Family History No pertinent family history Social History Smoking Status: Current Every Day Smoker Alcohol Use: none Drug Use: none Marital Status: Housing Status: lives with family Occupation Status: employed Current/Historical Medications No Active Prescriptions or Reported Meds Allergies Coded Allergies: BEE STING (Verified Allergy, Severe, sob, 02/14/17) Lamotrigine (Verified Allergy, Mild, RASH, 02/14/17) Uncoded Allergies: PROVOLONE CHEESE (Allergy, Severe, ANAPHYLAXIS, 01/13/16) Physical Exam Vital Signs Date Time Temp Pulse Resp B/P (MAP) Pulse Ox O2 Delivery O2 Flow Rate FiO2 06/06/17 20:09 73 18 171/95 96 06/06/17 18:59 64 18 173/110 98 Room Air 06/06/17 17:16 36.3 80 20 160/114 98 Room Air Physical Exam GENERAL: Sitting up in bed, alert, well appearing, well nourished, no distress, non-toxic EYE EXAM: normal conjunctiva. PERRL and EOM's intact. OROPHARYNX: no exudate, no erythema, lips, buccal mucosa, and tongue normal and mucous membranes are moist NECK: supple, no nuchal rigidity, no adenopathy, non-tender LUNGS: Clear to auscultation. Normal chest wall mechanics HEART: no murmurs, S1 normal and S2 normal ABDOMEN: abdomen soft, faint tenderness in lower abdomen, normo-active bowel sounds, no masses, no rebound or guarding. BACK: Back is symmetrical on inspection and there is no deformity, no midline tenderness, no CVA tenderness. SKIN: no rashes and no bruising UPPER EXTREMITIES: upper extremities are grossly normal. LOWER EXTREMITIES: No pitting edema. NEURO EXAM: Normal sensorium, cranial nerves II-XII intact, normal speech, no weakness of arms, no weakness of legs. No drift. Finger to nose intact. Gross sensation intact. Medical Decision & Procedures ER Provider Diagnostic Interpretation: Radiology results as stated below per my review and the radiologist's interpretation: CT HEAD WITHOUT CONTRAST (CT) CLINICAL HISTORY: Severe headache, nausea, fever COMPARISON STUDY: 11/06/2016 TECHNIQUE: Axial CT of the brain is performed from the vertex to the skull base. IV contrast was not administered for this examination. A dose lowering technique was utilized adhering to the principles of ALARA. CT DOSE: FINDINGS: No intra or extra-axial mass lesions are visualized. There is no CT evidence of acute cortical infarction. There is no evidence of midline shift. There is no acute hemorrhage. No calvarial fractures are visualized. There is no evidence of pathologic ventricular dilatation. There is mild sphenoid sinus mucosal thickening/fluid IMPRESSION: 1. Mild mucosal disease within the sphenoid sinus 2. Otherwise normal noncontrast head CT. Electronically signed by: Wing Martinez M.D. 06/06/2017 6:43 PM Dictated Date/Time: 06/06/2017 6:[address] ABD/PELVIS IV CONTRAST ONLY CLINICAL HISTORY: Generalized abdominal pain HISTORY OF PARTIAL NEPHRECTOMY COMPARISON STUDY: 08/30/2016 TECHNIQUE: Following the IV administration of 70 mL of [id number], CT scan of the abdomen and pelvis was performed from the lung bases to the proximal femurs. Images are reviewed in the axial, sagittal, and coronal planes. IV contrast was administered without complication. A dose lowering technique was utilized adhering to the principles of ALARA. CT DOSE: FINDINGS: Lower chest: The heart is normal in size and configuration, without pericardial effusion. The lung bases and pleural spaces are clear. Liver: There is hepatic steatosis. No focal masses are visualized. Gallbladder: Unremarkable. Spleen: Normal in size and attenuation. Pancreas: Unremarkable. Adrenal glands: Unremarkable. Kidneys: Postsurgical changes involve the left kidney. There is a 2 mm lower pole left renal calculus. There is a mildly prominent left renal pelvis. There is a 1 cm right renal hypodensity consistent with a cyst Bowel: There are no transition zones to indicate bowel obstruction. There is no acute diverticulitis. The appendix appears normal. Peritoneum: There is no intraperitoneal free air or abdominal ascites. Vasculature: The abdominal aorta is normal in course and caliber. Adenopathy: None. Pelvic viscera: The bladder, and pelvic viscera are unremarkable. Skeletal structures: No destructive osseous lesions are seen. IMPRESSION: 1. No evidence of bowel obstruction. No evidence of free air 2. Normal appendix 3. Postsurgical changes involving the left kidney. Nonobstructing 2 mm left renal calculus. Electronically signed by: Wing Martinez M.D. 06/06/2017 6:51 PM Dictated Date/Time: 06/06/2017 6:46 PM Laboratory Results 06/06/17 17:34 Red Blood Count 5.04, Mean Corpuscular Volume 90.9, Mean Corpuscular Hemoglobin 31.2, Mean Corpuscular Hemoglobin Concent 34.3, Mean Platelet Volume 8.9, Neutrophils (%) (Auto) 55.1, Lymphocytes (%) (Auto) 31.5, Monocytes (%) (Auto) 9.8, Eosinophils (%) (Auto) 2.9, Basophils (%) (Auto) 0.6, Neutrophils # (Auto) 4.52, Lymphocytes # (Auto) 2.58, Monocytes # (Auto) 0.80, Eosinophils # (Auto) 0.24, Basophils # (Auto) 0.05 06/06/17 17:34 Test 06/06/17 17:34 06/06/17 18:59 White Blood Count 8.20 K/uL (4.8-10.8) Red Blood Count 5.04 M/uL (4.7-6.1) Hemoglobin 15.7 g/dL (14.0-18.0) Hematocrit 45.8 % (42-52) Mean Corpuscular Volume 90.9 fL (80-100) Mean Corpuscular Hemoglobin 31.2 pg (25-34) Mean Corpuscular Hemoglobin Concent 34.3 g/dl (32-36) Platelet Count 309 K/uL (130-400) Mean Platelet Volume 8.9 fL (7.4-10.4) Neutrophils (%) (Auto) 55.1 % Lymphocytes (%) (Auto) 31.5 % Monocytes (%) (Auto) 9.8 % Eosinophils (%) (Auto) 2.9 % Basophils (%) (Auto) 0.6 % Neutrophils # (Auto) 4.52 K/uL (1.4-6.5) Lymphocytes # (Auto) 2.58 K/uL (1.2-3.4) Monocytes # (Auto) 0.80 K/uL (0.11-0.59) Eosinophils # (Auto) 0.24 K/uL (0-0.5) Basophils # (Auto) 0.05 K/uL (0-0.2) RDW Standard Deviation 42.0 fL (36.4-46.3) RDW Coefficient of Variation 12.7 % (11.5-14.5) Immature Granulocyte % (Auto) 0.1 % Immature Granulocyte # (Auto) 0.01 K/uL (0.00-0.02) Anion Gap 7.0 mmol/L (3-11) Est Creatinine Clear Calc Drug Dose 156.4 ml/min Estimated GFR () 136.4 Estimated GFR (Non- 117.6 BUN/Creatinine Ratio 11.4 (10-20) Calcium Level 9.0 mg/dl (8.5-10.1) Total Bilirubin 0.2 mg/dl (0.2-1) Direct Bilirubin < 0.1 mg/dl (0-0.2) Aspartate Amino Transf (AST/SGOT) 20 U/L (15-37) Alanine Aminotransferase (ALT/SGPT) 52 U/L (12-78) Alkaline Phosphatase 81 U/L (45-117) Total Protein 7.8 gm/dl (6.4-8.2) Albumin 3.7 gm/dl (3.4-5.0) Lipase 164 U/L (73-393) Urine Color YELLOW Urine Appearance CLEAR (CLEAR) Urine pH 8.5 (4.5-7.5) Urine Specific [place] 1.039 (1.000-1.030) Urine Protein NEG (NEG) Urine Glucose (UA) NEG (NEG) Urine Ketones NEG (NEG) Urine Occult Blood NEG (NEG) Urine Nitrite NEG (NEG) Urine Bilirubin NEG (NEG) Urine Urobilinogen NEG (NEG) Urine Leukocyte Esterase NEG (NEG) Urine WBC (Auto) 1-5 /hpf (0-5) Urine RBC (Auto) 0-4 /hpf (0-4) Urine Hyaline Casts (Auto) 0 /lpf (0-5) Urine Epithelial Cells (Auto) 0-5 /lpf (0-5) Urine Bacteria (Auto) NEG (NEG) Laboratory results per my review. Medications Administered Medications (Trade) Dose Ordered Sig/[place] Route Start Time Stop Time Status Last Admin Dose Admin Ketorolac Tromethamine (Toradol Inj) 30 mg NOW STAT IV 06/06/17 17:25 06/06/17 17:28 DC 06/06/17 17:50 30 MG Sodium Chloride 500 ml @ 999 mls/hr Q31M STAT IV 06/06/17 17:25 06/06/17 17:55 DC 06/06/17 17:49 999 MLS/HR Ondansetron HCl (Zofran Inj) 4 mg NOW STAT IV 06/06/17 17:29 06/06/17 17:30 DC 06/06/17 17:50 4 MG Diphenhydramine HCl (Benadryl Inj) 50 mg NOW STAT IV 06/06/17 18:34 06/06/17 18:35 DC 06/06/17 18:57 50 MG ED Course ED COURSE: Vital signs were reviewed and showed hypertensive. The patients medical record was reviewed The above diagnostic studies were performed and reviewed. ED treatments and interventions as stated above. 1720: The patient was evaluated in room B8. A complete history and physical examination was performed. 1725: Ordered Sodium Chloride 500 ml @ 999 mls/hr IV and Toradol 30 mg IV 1728: Ordered Zofran 4 mg IV 4: Ordered Benadryl 50 mg IV 3: Upon reevaluation, the patient is feeling better. I discussed my findings with the patient and he understands and agrees with the treatment plan. Based on the patients age, coexisting illnesses, exam and lab findings the decision to treat as an outpatient was made. The patient remained stable while under my care. The patient appeared well at the time of discharge. Medical Decision Differential diagnoses includes but is not limited to gastritis, peptic ulcer disease, GERD, gallbladder disease, pancreatitis, small bowel obstruction, acute coronary syndrome, pericarditis, ischemic bowel, irritable bowel disease, irritable bowel syndrome, appendicitis, diverticulitis, malignancy, hernia, urinary tract infection, torsion, perforation, trauma, infectious, headache, tension headache, cluster headache, migraine, subarachnoid hemorrhage, meningitis, mass, central venous thrombus, concussion, trauma and epidural/ subdural hemorrhage. Patient is a 21-year-old male who presents to ER lower abdominal pain which started this morning initially with vomiting. Following this he started to get a headache. Headache is sharp stabbing nature. He is completely neurologically intact on exam. Abdominal exam is benign. CT of abdomen pelvis and head were both negative. CBC along with BMP, LFTs, bilirubin and lipase is unremarkable. UA was negative. Patient was updated at bedside with the unremarkable workup. He was given IV Toradol and Benadryl. He had significant resolution of his symptoms. He was discharged follow-up with PCP as an outpatient. There is no signs of meningitis or encephalitis. Nothing to suggest subarachnoid hemorrhage. Discussed with Pt concerning signs and symptoms to watch out for. Pt was instructed to follow up with their PCP and discussed with the patient their option to return to the ED at anytime for persistent or worsening symptoms. The appropriate anticipatory guidance and out- patient management, including indications for return to the emergency department , were explained at length to the patient and understood. Medication Reconcilliation Current Medication List: was personally reviewed by me Blood Pressure Screening Patient's blood pressure: Elevated blood pressure Blood pressure disposition: Elevated BP felt to be situational Impression Primary Impression: Abdominal pain Additional Impression: Headache Scribe Attestation The scribe's documentation has been prepared under my direction and personally reviewed by me in its entirety. I confirm that the note above accurately reflects all work, treatment, procedures, and medical decision making performed by me. Departure Information Dispostion Home / Self-Care Prescriptions No Active Prescriptions or Reported Meds Referrals No Doctor, Assigned (PCP) Forms HOME CARE DOCUMENTATION FORM, IMPORTANT VISIT INFORMATION Patient Instructions Abdominal Pain - [facility], Headache Pain, [facility] Additional Instructions Please follow up with your primary care doctor with in the next 24 hours. Any worsening of your symptoms, please return to the ED immediately. This includes any fevers greater than 100.4, worsening pain, chest pain, shortness breath, persistent nausea, vomiting, unable to eat or drink, or any other concerning signs or symptoms from your standpoint. You were given medications during this visit that will inhibit your ability to drive, operate machinery and work. Please do NOT drive, operate machinery, drink alcohol or work for the next 12hrs. Problem Qualifiers Primary Impression: Abdominal pain Abdominal location: unspecified location Qualified Codes: R10.9 - Unspecified abdominal pain Additional Impression: Headache Headache type: unspecified Headache chronicity pattern: acute headache Intractability: not intractable Qualified Codes: R51 - Headache
== END 2017-06-06 20:10 | disposition home or self-care (01) ==
LOC: C.EDB 17:11
DX: R10.30 Lower abdominal pain, unspecified (principal); R51 Headache; R11.2 Nausea with vomiting, unspecified; R05 Cough; F90.9 Attention-deficit hyperactivity disorder, unspecified type; E11.9 Type 2 diabetes mellitus without complications; I10 Essential (primary) hypertension; F17.200 Nicotine dependence, unspecified, uncomplicated; Z86.69 Personal history of other diseases of the nervous system and sense organs; Z87.448 Personal history of other diseases of urinary system; Z91.030 Bee allergy status; Z88.8 Allergy status to other drugs, medicaments and biological substances; Z91.011 Allergy to milk products

== ENCOUNTER 2017-07-09 06:59 | Emergency (ER) | payer OTHER ==
[~2017-07-09] VITALS: Ht 162.6 cm; Wt 128.4 kg
[2017-07-09 07:01] VITALS: TEMP 36.6; Ht 162.6 cm; Wt 128.4 kg
[2017-07-09] MEDS ORDERED: AMOX875T3 PO (07:42)
[2017-07-09] MEDS ORDERED: IBUPROFEN 600 MG TAB PO STA (07:42)
[2017-07-09] MEDS ORDERED: NEOM1SUS21 OP (07:42)
[2017-07-09 07:48] VITALS: BP 156/88; PULSE 75; O2SAT 98
--- NOTE | 2017-07-09 15:27 | EMERGENCY ROOM VISIT NOTE ---
ED Visit Note First contact with patient: 07:04 Chief Complaint: Left ear pain. History of Present Illness: Mr. Bridges is a 21-year-old male who ambulates into the ED complaining of left ear pain. Patient reports he has been having ongoing left ear pain for the last week. Initially was mild but gradually increased in intensity. He describes his ear pain as a throbbing sensation. He rates his discomfort 10/10. His pain is radiating into the angle of the mandible. His pain worsens with palpation of the external ear, chewing and sleeping on the left side of the head. He has not identified any alleviating factors related to the pain. He reports he has been using [id number] swimming eardrops without relief of his discomfort. Associated with his symptoms he also reports she has a mild fullness in the right ear and he has difficulty sleeping, eating and focusing his attention. He denies headache, dizziness, lightheadedness, fevers, chills, sweats, skin eruptions, skin color changes, hearing changes, sore throat, ear drainage, throat pain, neck pain/stiffness, cough, wheezing, shortness of breath, decreased appetite, nausea/vomiting. Review of Systems: As noted above in history of present illness. 8 body systems were reviewed and found to be negative as noted above. Past Medical History: Diabetes, hypertension, unspecified skin disorder, gastric ulcers, status post tonsillectomy, removal of [place] tumor. Current Medications: Patient denies. Allergies to Medications: Lamotrigine. Social History: Patient is not employed; he feels safe in his home environment; he admits to tobacco and alcohol use. Physical Examination: Vital Signs: Date Time Temp Pulse Resp B/P (MAP) Pulse Ox O2 Delivery O2 Flow Rate FiO2 07/09/17 07:48 75 18 156/88 98 07/09/17 07:01 36.6 84 20 177/112 98 Room Air 1.0 GENERAL: 21-year-old male in mild to moderate distress due to pain, nontoxic- appearing, afebrile and hemodynamically stable. NEUROLOGICAL: Awake, alert and oriented to person, place and time. Answering questions appropriately and following commands. Normal gait. Good hand eye coordination. No focal motor or sensory deficits. SKIN: Warm, dry and pink. No soft tissue eruptions or trauma noted. HEENT: Atraumatic and normocephalic. No erythema or tenderness over the frontal or maxillary sinuses. Right external ear is nontender and auditory canal is pink and patent. The right tympanic membrane was mildly erythematous, edematous and bulging. Cone of light reflex was slightly distorted. The left external ear was moderate tender to palpation. Positive tragal tenderness. The auditory canal is moderately erythematous and edematous. Tympanic membrane was partially obscured but was noted there was no erythema, edema or bulging. No tenderness or erythema over the mastoid processes. PERRLA. EOMI. Sclera white and conjunctiva pink. No drainage from naris. Oral cavity moist and pink. Pharynx is nonerythematous or edematous. Speech normal. No preauricular , postauricular and cervical lymphadenopathy. Lymphadenopathy. Trachea midline. No jugular venous distention. BACK: No tenderness over the bony cervical and spine. No nuchal rigidity. Full range of motion of the cervical spine THORAX: Lungs sounds are clear to auscultation and equal bilaterally with symmetrical chest wall. No wheezing, rales or rhonchi. ED Course: Patient is assessed as noted above. Patient's medication list was reviewed. Patient was ordered ibuprofen for pain but never received his medication. Patient was educated about today's findings and instructed on his treatment plan ; he verbalizes understanding and agreement with this plan. Clinical Impression: Right otitis media. Right otitis externa. Disposition: Patient discharged home in stable condition; prior to departure he was reassessed and subjectively reported he was feeling slightly better and rated his discomfort 9/10 Plan: Patient was encouraged alternate ibuprofen and acetaminophen every 3 hours as needed for pain. Patient was encouraged to use 4 drops of Cortisporin Otic suspension in the left ear canal 4 times a day for 5-7 days. Patient was encouraged to avoid putting anything or allowing water in the ear canal until resolution of pain. Patient was prescribed 875 mg of amoxicillin 3 times a day for 10 days. Patient was encouraged to follow-up with his PCP for recheck in 4-5 days. Patient was encouraged return the ED for worsening/uncontrolled pain, bloody or puslike drainage from the ears, uncontrolled fevers, external ear swelling/ redness, severe headaches, vomiting or any new/concerning symptoms.
== END 2017-07-09 07:48 | disposition home or self-care (01) ==
LOC: C.EDB 07:00 → C.EDA 07:48
DX: H66.91 Otitis media, unspecified, right ear (principal); H60.91 Unspecified otitis externa, right ear; Z88.8 Allergy status to other drugs, medicaments and biological substances; Z72.0 Tobacco use

== ENCOUNTER 2019-01-12 19:04 | Inpatient (IN) ==
[2019-01-12 20:08] LABS: Appearance Urine Clear (Clear); Bilirubin Urine Negative (Negative); Blood Urine Negative (Negative); Color Urine Yellow; Glucose Urine UA Negative (Negative); Ketones Urine Negative (Negative); Leukocyte Esterase Urine Negative (Negative); Nitrite Urine Negative (Negative); Protein Urine Negative (Negative); Specific Gravity Urine 1.026 (1.000-1.030); Urobilinogen Urine Negative (Negative); pH Urine 5.5 (4.5-7.5)
[2019-01-12 20:30] LABS: Amphetamines+Metham, Urine Neg (Neg); Barbiturates, Urine Neg (Neg); Benzodiazepine, Urine Neg (Neg); Cocaine, Urine Neg (Neg); MDMA (Ecstacy), Urine Neg (Neg); Methadone, Urine Neg (Neg); Opiate, Urine Neg (Neg); Phencyclidine, Urine Neg (Neg)
[2019-01-12 21:12] LABS: Basophils # (auto) 0.04 K/uL (0-0.2); Basophils % (auto) 0.4 %; Eosinophils # (auto) 0.21 K/uL (0-0.5); Hematocrit (blood only) 42.8 % (42-52); Hemoglobin 14.4 g/dL (14.0-18.0); Immature Granulocytes # (auto) 0.03 K/uL (0.00-0.02); Immature Granulocytes % (auto) 0.3 %; Lymphocytes # (auto) 3.14 K/uL (1.2-3.4); Mean Corpuscular Hemoglobin 30.9 pg (25-34); Mean Corpuscular Hgb Conc 33.6 g/dL (32-36); Mean Corpuscular Volume 91.8 fL (80-100); Mean Platelet Volume 8.8 fL (7.4-10.4); Monocytes # (auto) 0.42 K/uL (0.11-0.59); Neutrophils # (auto) 6.61 K/uL (1.4-6.5); Neutrophils % (auto) 63.3 %; Platelet Count 387 K/uL (130-400); RDW Coefficient of Variation 12.9 % (11.5-14.5); RDW Standard Deviation 43.1 fL (36.4-46.3); Red Blood Count 4.66 M/uL (4.7-6.1); White Blood Count 10.45 K/uL (4.8-10.8)
[2019-01-12 21:29] LABS: Albumin Level 3.8 gm/dl (3.4-5.0); BUN Creatinine Ratio 13.4 (10-20); Calcium 9.1 mg/dl (8.5-10.1); Creatinine Clr Calc Pharmacy 137.3 ml/min; Est GFR (African American) 114.6; Est GFR (Non-African American) 98.9; Potassium 3.9 mmol/L (3.5-5.1)
[2019-01-12 21:39] LABS: Bilirubin,Total 0.2 mg/dl (0.2-1); Thyroid Stimulating Hormone 3.25 uIu/ml (0.300-4.500); Total Protein 7.8 gm/dl (6.4-8.2)
[2019-01-12 21:41] LABS: Acetaminophen < 2 ug/ml (10-30); Salicylate < 1.7 mg/dl (2.8-20)
[2019-01-13] MEDS ORDERED: cloNIDine HCL 0.3 MG TAB PO STA (00:24)
[2019-01-13] MEDS ORDERED: LITHIUM CARBONATE 300 MG TAB PO STA (00:24)
--- NOTE | 2019-01-13 01:06 | Emergency Department Note ---
Entered by Millie Chaudhary acting as a scribe for TrellosmelPeyton DO Vi History of Present Illness General Chief complaint: Mental Health Evaluation Stated complaint: MENTAL HEALTH EVAL Time Seen by Provider: 01/12/19 20:14 History of Present Illness Provider complaint: mental health evaluation Onset (ago): hour(s) (7.5) Location: head Pain Consistency: + other (episode) Associated symptoms: + denies other symptoms (denies all statements made by therapist, SI, HI, alcohol and drug use), + cough (lingering) and + other (SI reported from therapist via heroin overdose or by taking a pill that would kill him in 2 minutes, stressed from current court situation, feeling better from pneumonia diagnosed 1 week ago) Treatments prior to arrival: none The patient is a 23 year old male who presents to the ED for a mental health evaluation starting 7.5 hours ago. Per psychiatric employment evaluator/case manager, the patient was petitioned by his therapist for suicidal statements. Per employment evaluator/case manager, the patient stated that he will end his live via heroin overdose or by taking a pill that will end his life in 2 minutes. Per employment evaluator/case manager, the patient notes that he would only follow through with these statements if his upcoming court date rules against his favor. The patient denies all of these prior statements. The patient states that he is stressed due to his current court situation, but he denies suicidal and homicidal ideations. The patient states that he was seen here 1 week ago for pneumonia, but states that he is feeling better despite a mild lingering cough. The patient denies alcohol and drug use, chest pain and shortness of breath. The patient denies receiving any treatments prior to arrival. 302 petition written by patient's therapist was reviewed. States patient made suicidal statements and had a plan. Home Medications Home Medications Medication Instructions Recorded Confirmed Type clonidine HCl 0.3 mg PO BID 01/13/19 01/13/19 History lithium carbonate 300 mg PO HS 01/13/19 01/13/19 History Allergies Allergy/AdvReac Type Severity Reaction Status Date / Time bee venom protein (honey bee) Allergy Severe sob Verified 01/04/19 17:26 lamotrigine Allergy Mild RASH Verified 01/04/19 17:26 cheese Allergy Anaphylaxis Verified 01/04/19 17:26 Past Med/Surg History Medical History Pneumonia (Acute) Acute pharyngitis (Acute) Diabetes mellitus (Chronic) Gastritis (Acute) ADHD (attention deficit hyperactivity disorder) (Chronic) C3 cervical fracture (Acute) Congenital obstruction of ureteropelvic junction (Chronic) Hypothyroidism (Chronic) Developmental articulation disorder (Chronic) History of diabetes mellitus Closed head injury (Acute) Contusion of right hand including fingers (Acute) Fall down stairs (Acute) Injury of right leg (Acute) Abdominal pain (Acute) Acute bronchitis (Acute) Dizziness (Acute) Headache (Acute) Vomiting (Acute) Surgical History S/P orchiopexy (Chronic) S/P tonsillectomy and adenoidectomy (Chronic) H/O partial nephrectomy Family History Other Cancer Diabetes Hypertension Social History Preferred Language: Ecuadorean Communication Ability: Effective Band Splicer Required: No Beliefs That Will Affect Care: None marital status: Single Current Living Situation: Family current occupational status: unemployed Feels Safe at Home: Yes Smoking Status: Current some day smoker (Patient reports that he does not e xperience nicotine cravings or withdrawal symptoms if he does not "vape" or otherwise use nicotine products.) Tobacco Type: e-cigarettes ; Review of Systems See HPI for pertinent positives & negatives. and A total of 10 systems reviewed and were otherwise negative Physical Exam Vital Signs Vital Signs - 24 hr 01/12/19 19:08 01/12/19 21:07 01/13/19 00:25 Temperature 36.9 C Temperature Source Oral Sepsis Recent Fever Within 48 Hours No Sepsis New/Unexplained Change in Mental Status No Sepsis Action Taken by Nursing No Action Required Pulse Rate 98 H Pulse Rate [Apical] 90 98 H Respiratory Rate 20 18 18 Respiratory Effort / Characteristics Non-Labored Spontaneous Respiratory Depth Normal Blood Pressure 176/134 H Blood Pressure [Left Arm] 180/97 H 175/97 H Blood Pressure Mean 148 Blood Pressure Mean [Left Arm] 124 123 Pulse Oximetry 97 96 Oxygen Delivery Method Room Air Room Air GENERAL: obese, mildly agitated, alert, well appearing, well nourished, non- toxic EYE EXAM: normal conjunctiva, PERRL and EOM's grossly intact OROPHARYNX: no exudate, no erythema, lips, buccal mucosa, and tongue normal and mucous membranes are moist NECK: supple, no nuchal rigidity, no adenopathy, non-tender LUNGS: Clear to auscultation, no wheezes, no rhonchi, no rales. Normal chest wall mechanics HEART: no murmurs, S1 normal and S2 normal ABDOMEN: abdomen soft, non-tender, normo-active bowel sounds, no masses, no rebound or guarding. BACK: Back is symmetrical on inspection and there is no deformity, no midline tenderness, no CVA tenderness. SKIN: no rashes and no bruising UPPER EXTREMITIES: upper extremities are grossly normal. FROM. LOWER EXTREMITIES: No pitting edema. FROM. NEURO EXAM: Normal sensorium, cranial nerves II-XII grossly intact, normal speech, no gross weakness of arms, no gross weakness of legs. Gross sensation intact. PSYCH: Anxious, denies SI and HI, admits to increased stress Course 2030: Past medical records reviewed. The patient was evaluated in room A05. A complete history and physical exam was performed. 2351: The patient is accepted at [address] [place] [address]. Administered Medications Discontinued Medications Clonidine HCl (Catapress) 0.3 mg PO NOW STA Stop: 01/13/19 00:25 Last Admin: 01/13/19 00:42 Dose: 0.3 mg Documented by: [id number] Clonidine HCl (Catapress) 0.3 mg PO BID LUKE Stop: 02/12/19 08:59 Last Admin: 01/13/19 10:24 Dose: 0.3 mg Documented by: [id number] Kelley Carbonate (Kelley Carbonate) 300 mg PO NOW STA Stop: 01/13/19 00:25 Last Admin: 01/13/19 00:42 Dose: 300 mg Documented by: [id number] Medical Decision Making Differential Diagnosis Differential diagnosis: Etiologies such as psychiatric disorder, infection, hypoglycemia, electrolyte abnormalities, cardiac sources, intracerebral event, toxicological process, neurologic disorder, as well as others were entertained. Medical Records Attestation: I reviewed the patient's medical records. Home Medications Current Medication List: was personally reviewed by me Laboratory Data Attestation: I reviewed the patient's lab results. Result diagrams: 01/12/19 20:58 01/12/19 20:58 Lab Results 01/12/19 01/12/19 01/12/19 Range/Units 19:18 19:18 20:58 WBC 10.45 (4.8-10.8) K/uL RBC 4.66 L (4.7-6.1) M/uL Hgb 14.4 (14.0-18.0) g/dL Hct 42.8 (42-52) % MCV 91.8 (80-100) fL MCH 30.9 (25-34) pg MCHC 33.6 (32-36) g/dL RDW Std Deviation 43.1 (36.4-46.3) fL RDW Coeff of Gustavo 12.9 (11.5-14.5) % Plt Count 387 (130-400) K/uL MPV 8.8 (7.4-10.4) fL Immature Gran % (Auto) 0.3 % Neut % (Auto) 63.3 % Lymph % (Auto) 30.0 % Coos % (Auto) 4.0 % Eos % (Auto) 2.0 % Baso % (Auto) 0.4 % Immature Gran # (Auto) 0.03 H (0.00-0.02) K/uL Neut # (Auto) 6.61 H (1.4-6.5) K/uL Lymph # (Auto) 3.14 (1.2-3.4) K/uL Coos # (Auto) 0.42 (0.11-0.59) K/uL Eos # (Auto) 0.21 (0-0.5) K/uL Baso # (Auto) 0.04 (0-0.2) K/uL Sodium (136-145) mmol/L Potassium (3.5-5.1) mmol/L Chloride (98-107) mmol/L Carbon Dioxide (21-32) mmol/L Anion Gap (3-11) BUN (7-18) mg/dl Creatinine (0.6-1.4) mg/dl Est Cr Clr Drug Dosing ml/min Est GFR ( Amer) Est GFR (Non-Af Amer) BUN/Creatinine Ratio (10-20) Glucose (70-99) mg/dl Calcium (8.5-10.1) mg/dl Total Bilirubin (0.2-1) mg/dl AST (15-37) U/L ALT (12-78) U/L Alkaline Phosphatase (45-117) U/L Total Protein (6.4-8.2) gm/dl Albumin (3.4-5.0) gm/dl Globulin (2.5-4.0) gm/dl Albumin/Globulin Ratio (0.9-2) TSH (0.300-4.500) uIu/ml Urine Color Yellow Urine Appearance Clear (Clear) Urine pH 5.5 (4.5-7.5) Ur Specific Woden 1.026 (1.000-1.030) Urine Protein Negative (Negative) Urine Glucose (UA) Negative (Negative) Urine Ketones Negative (Negative) Urine Blood Negative (Negative) Urine Nitrite Negative (Negative) Urine Bilirubin Negative (Negative) Urine Urobilinogen Negative (Negative) Ur Leukocyte Esterase Negative (Negative) Salicylates (2.8-20) mg/dl Urine Opiates Screen Neg (Neg) Ur Methadone, Qual Neg (Neg) Acetaminophen (10-30) ug/ml Urine Barbiturates Neg (Neg) Ur Phencyclidine (PCP) Neg (Neg) U Amphetamin/Meth Scrn Neg (Neg) MDMA (Ecstasy) Screen Neg (Neg) U Benzodiazepines Scrn Neg (Neg) Kelley (0.6-1.2) mmol/L Ur Cocaine Metabolite Neg (Neg) U Marijuana (THC) Screen Neg (Neg) Ethyl Alcohol mg/dL (0-3) mg/dl 01/12/19 01/12/19 01/12/19 Range/Units 20:58 20:58 20:58 WBC (4.8-10.8) K/uL RBC (4.7-6.1) M/uL Hgb (14.0-18.0) g/dL Hct (42-52) % MCV (80-100) fL MCH (25-34) pg MCHC (32-36) g/dL RDW Std Deviation (36.4-46.3) fL RDW Coeff of Gustavo (11.5-14.5) % Plt Count (130-400) K/uL MPV (7.4-10.4) fL Immature Gran % (Auto) % Neut % (Auto) % Lymph % (Auto) % Coos % (Auto) % Eos % (Auto) % Baso % (Auto) % Immature Gran # (Auto) (0.00-0.02) K/uL Neut # (Auto) (1.4-6.5) K/uL Lymph # (Auto) (1.2-3.4) K/uL Coos # (Auto) (0.11-0.59) K/uL Eos # (Auto) (0-0.5) K/uL Baso # (Auto) (0-0.2) K/uL Sodium 138 (136-145) mmol/L Potassium 3.9 (3.5-5.1) mmol/L Chloride 105 (98-107) mmol/L Carbon Dioxide 27 (21-32) mmol/L Anion Gap 6.0 (3-11) BUN 14 (7-18) mg/dl Creatinine 1.05 (0.6-1.4) mg/dl Est Cr Clr Drug Dosing 137.3 ml/min Est GFR ( Amer) 114.6 Est GFR (Non-Af Amer) 98.9 BUN/Creatinine Ratio 13.4 (10-20) Glucose 113 H (70-99) mg/dl Calcium 9.1 (8.5-10.1) mg/dl Total Bilirubin 0.2 (0.2-1) mg/dl AST 19 (15-37) U/L ALT 46 (12-78) U/L Alkaline Phosphatase 80 (45-117) U/L Total Protein 7.8 (6.4-8.2) gm/dl Albumin 3.8 (3.4-5.0) gm/dl Globulin 4.0 (2.5-4.0) gm/dl Albumin/Globulin Ratio 1.0 (0.9-2) TSH 3.250 (0.300-4.500) uIu/ml Urine Color Urine Appearance (Clear) Urine pH (4.5-7.5) Ur Specific Woden (1.000-1.030) Urine Protein (Negative) Urine Glucose (UA) (Negative) Urine Ketones (Negative) Urine Blood (Negative) Urine Nitrite (Negative) Urine Bilirubin (Negative) Urine Urobilinogen (Negative) Ur Leukocyte Esterase (Negative) Salicylates < 1.7 L (2.8-20) mg/dl Urine Opiates Screen (Neg) Ur Methadone, Qual (Neg) Acetaminophen < 2 L (10-30) ug/ml Urine Barbiturates (Neg) Ur Phencyclidine (PCP) (Neg) U Amphetamin/Meth Scrn (Neg) MDMA (Ecstasy) Screen (Neg) U Benzodiazepines Scrn (Neg) Kelley (0.6-1.2) mmol/L Ur Cocaine Metabolite (Neg) U Marijuana (THC) Screen (Neg) Ethyl Alcohol mg/dL < 3.0 (0-3) mg/dl 01/12/19 Range/Units 20:58 WBC (4.8-10.8) K/uL RBC (4.7-6.1) M/uL Hgb (14.0-18.0) g/dL Hct (42-52) % MCV (80-100) fL MCH (25-34) pg MCHC (32-36) g/dL RDW Std Deviation (36.4-46.3) fL RDW Coeff of Gustavo (11.5-14.5) % Plt Count (130-400) K/uL MPV (7.4-10.4) fL Immature Gran % (Auto) % Neut % (Auto) % Lymph % (Auto) % Coos % (Auto) % Eos % (Auto) % Baso % (Auto) % Immature Gran # (Auto) (0.00-0.02) K/uL Neut # (Auto) (1.4-6.5) K/uL Lymph # (Auto) (1.2-3.4) K/uL Coos # (Auto) (0.11-0.59) K/uL Eos # (Auto) (0-0.5) K/uL Baso # (Auto) (0-0.2) K/uL Sodium (136-145) mmol/L Potassium (3.5-5.1) mmol/L Chloride (98-107) mmol/L Carbon Dioxide (21-32) mmol/L Anion Gap (3-11) BUN (7-18) mg/dl Creatinine (0.6-1.4) mg/dl Est Cr Clr Drug Dosing ml/min Est GFR ( Amer) Est GFR (Non-Af Amer) BUN/Creatinine Ratio (10-20) Glucose (70-99) mg/dl Calcium (8.5-10.1) mg/dl Total Bilirubin (0.2-1) mg/dl AST (15-37) U/L ALT (12-78) U/L Alkaline Phosphatase (45-117) U/L Total Protein (6.4-8.2) gm/dl Albumin (3.4-5.0) gm/dl Globulin (2.5-4.0) gm/dl Albumin/Globulin Ratio (0.9-2) TSH (0.300-4.500) uIu/ml Urine Color Urine Appearance (Clear) Urine pH (4.5-7.5) Ur Specific Woden (1.000-1.030) Urine Protein (Negative) Urine Glucose (UA) (Negative) Urine Ketones (Negative) Urine Blood (Negative) Urine Nitrite (Negative) Urine Bilirubin (Negative) Urine Urobilinogen (Negative) Ur Leukocyte Esterase (Negative) Salicylates (2.8-20) mg/dl Urine Opiates Screen (Neg) Ur Methadone, Qual (Neg) Acetaminophen (10-30) ug/ml Urine Barbiturates (Neg) Ur Phencyclidine (PCP) (Neg) U Amphetamin/Meth Scrn (Neg) MDMA (Ecstasy) Screen (Neg) U Benzodiazepines Scrn (Neg) Kelley < 0.2 L (0.6-1.2) mmol/L Ur Cocaine Metabolite (Neg) U Marijuana (THC) Screen (Neg) Ethyl Alcohol mg/dL (0-3) mg/dl Blood Pressure Blood Pressure Findings: Elevated blood pressure Blood Pressure Disposition: further management by hospitalist MDM Narrative Patient brought in by police as a 302. Patient made concerning statements to his therapist who wrote the petitioning statement. Patient denied making the statements to myself in the psychiatric employment evaluator/case manager, denied any SI or plan. Does admit to increased stress involving a custody sawyer in court case. Patient does have significant prior history of mental illness. Patient was ultimately admitted to 3 S. following evaluation by psychiatric employment evaluator/case manager. Impression & Plan Depression, Anxiety, Suicidal ideation Discharge Plan Visit Data *Final* Discharge Date/Time: 01/13/19 02:25 Chief Complaint: Mental Health Evaluation Stated Complaint: MENTAL HEALTH EVAL ED Provider: Peyton Simmons Discharge Problem: Depression, Anxiety, Suicidal ideation Patient Disposition: Admitted As Inpatient Discharge Instructions Interventions: ED Discharge Assessment Last Done: 01/13/19 02:25 Discharge Problem: Depression Qualifiers: Depression Type: unspecified Qualified Code(s): F32.9 - Major depressive disorder, single episode, unspecified The scribe's documentation has been prepared under my direction and personally reviewed by me in its entirety. I confirm that the note above accurately reflects all work, treatment, procedures, and medical decision making performed by me.
[2019-01-13] MEDS ORDERED: ACETAMINOPHEN 325 MG TAB PO PRN (01:25)
[2019-01-13] MEDS ORDERED: MAGNESIUM HYDROXIDE SUSP 30 ML UDC PO PRN (01:25)
[2019-01-13] MEDS ORDERED: BISMUTH SUBSALICYLATE PER ML OMNICELL CHARGE PO PRN (01:25)
[2019-01-13] MEDS ORDERED: SODIUM CHLORIDE 0.65% NA SOLN 45 ML (OCEAN) PRN (01:25)
[2019-01-13] MEDS ORDERED: ALUMINUM/MAGNESIUM SUSP 30 ML UDC PO PRN (01:25)
[2019-01-13] MEDS ORDERED: INFLUENZA ADMINISTRATION CHARGE ONE (05:15)
[2019-01-13] MEDS ORDERED: INFLUENZA VIRUS QUAD VACCINE 0.5 ML SYR IM ONE (05:15)
[2019-01-13] MEDS ORDERED: cloNIDine HCL 0.3 MG TAB PO SCH (09:00)
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
== END 2019-01-13 12:05 | disposition home or self-care (01) | DRG 885 ==
LOC: ED 19:04 → 3S 01-13 01:25

== ENCOUNTER 2022-01-10 09:22 | Observation (INO) ==
[2022-01-10] MEDS ORDERED: SODIUM CHLORIDE 0.9% 1000ML 1,000 ML IV ONE (09:39)
[2022-01-10] MEDS ORDERED: ONDANSETRON INJ 2 MG/ML 2 ML VIAL IV STA (09:39)
[2022-01-10] MEDS ORDERED: ACETAMINOPHEN 1,000 MG/100 ML VIAL IV STA (09:39)
[2022-01-10] MEDS ORDERED: LABETALOL HCL IV 5 MG/ML 20ML IV STA ×2 (09:46→11:37)
--- NOTE | 2022-01-10 09:46 | Emergency Department Note ---
Impression & Plan Hypertensive urgency, Headache, Syncope and collapse ED Provider Note Name: CJ POND Age: 26 Sex: M Arrives Via: Walk-In Informant: Patient, Mother ED Provider: Ernie Mcgarry MD Chief Complaint: Hypertension Impression: As per impressions above Medical Decision Makin-year-old gentleman with a history of diabetes, hypothyroidism, hypertension, bipolar, anxiety/depression amongst others arrives for evaluation following syncope last night. Unclear when he may have fallen on the ground in the hallway but last seen at 3 in the morning and was found at 7 in the morning. He lost bowel bladder control he was awake and talking shortly after being found. He arrives complaining of severe headache, significant hypertension and no memory of what happened this evening. He has no neurologic deficits on evaluation. His blood pressure is 220/120. CT head with angio of the head neck was ordered knowing that a CT head yesterday had been negative when he had initially been here. Yesterday had been here for mild headache and high blood pressure.'s headache started improving with IV Tylenol, IV Zofran, IV x2 and then hydralazine 10 mg IV. He did note that he had been off his clonidine for several months up until restarting it yesterday other than threw it up. The CT angios were negative. Labs are unremarkable. Given the syncope and the multiple rounds of IV antihypertensives I discussed case with the hospitalist who will monitor him for further management. Patient without any chest pain, shortness of breath. He has no hypoxia and I think PE as cause of syncope is quite unlikely. Prior Medical Record and Triage/Nursing Notes reviewed by Me Additional history obtained from chart Differentials:Vasovagal event, dehydration, infection, hypoglycemia, electrolyte abnormalities, cardiac sources, intracerebral event, pulmonary embolism, seizure, toxicologic, neurologic, as well as other pathologies. Vital Signs: reviewed and remarkable for no significant abnormalities Interventions: See Below Labs:Reviewed and remarkable for no acute abnormalities Imaging:CT angio head and neck as per radiologist no acute findings EKG:Per My Interpretation: Indication syncope. Normal sinus rhythm at 75 bpm and a QTC of 442. There is no ectopy or nor ischemia. When compared to EKG of January 09, 2022 there is no change. Cardiac/Tele Monitoring: Cardiac Monitoring: An Order was placed for continuous cardiac monitoring. The monitor shows a rate of 75 with a normal sinus rhythm. Consults:Dr Thais Schafer Hospitalist Plan: Disposition:Hospitalization. Condition: Good History of Present Illness:26-year-old male arrives for evaluation of syncope. Patient notes he was seen in the ER yesterday for hypertension though denies any significant symptoms other than a mild headache at that time. Work-up yesterday was unremarkable he was discharged to take his home medication clonidine. He did take that last night. Around midnight he started developing a headache. He threw up. He went to bed. He woke around possibly 3 AM for a brief while. Around 8 AM mother found him laying on the floor. Patient has no recollection of walking in the hallway where he was found. He had lost bowel and bladder continence. He was vomiting. She notes he was very ill-appearing initially though after getting up and cleaning up he appeared better. He is complaining of a severe frontal headache. Associated with nausea and states he is having difficulty focus on things. He denies any shortness of breath or chest pain. Denies any leg swelling or calf pain. Patient does not have a history of recurrent syncope. Patient notes he has not been able to take his daily medications the last 2 days due to not feeling well. He denies any falls, trauma, injuries other than last night. He is unsure of how long he laid on the ground. He denies any joint aches or pains in particular. Does note that his whole body seems to hurt. He does have some mild runny nose and a slight cough the last few days. Currently denies any fevers, rashes, abdominal pain, chest pain, shortness of breath, back pain, urinary/bowel issues other than loss of control last night, bleeding/bruising or other concerning signs or symptoms. He does not take any blood thinners. ROS: See above HPI for pertinent positives & negatives. A total of 10 systems reviewed and were otherwise negative. Past Medical History:Anxiety depression, diabetes, hypothyroidism, bipolar, hypertension, amongst others Past Surgical History:Tonsils/adenoids, orchiopexy Family History:Mother with history of headaches see below Social History:See Below Home Medications:Clonidine, Strattera, Abilify, benztropine Allergies:Lamotrigine Vitals:Blood Pressure: 195/119, Pulse 87, RR 18, T 36.9C, O2 96% on RA Physical Exam: GENERAL: Patient is uncomfortable appearing and in moderate distress. EYES: No scleral icterus, unremarkable pupils. ENT: Mucous membranes moist, no nasal congestion. NECK: No masses appreciated, nomeningismus, trachea is midline. RESPIRATORY: No dyspnea. Clear to auscultation and equal bilaterally. No wheeze, no rhonchi. CARDIOVASCULAR: Regular rate and rhythm.No murmurs, rubs, gallops appreciated. GASTROINTESTINAL: Abdomen soft, non-tender, no peritonitis.Bowel sounds positive.No masses appreciated. BACK: No midline tenderness, no CVA tenderness EXTREMITIES: Normal motion all extremities, no cyanosis, no edema. NEUROLOGIC: Alert and oriented, no acute motor or sensory deficits, no focal w eakness, cranial nerves grossly intact. SKIN: No rash, no jaundice, no diaphoresis. PSYCH: Appropriate GCS: 15 ED Course: Times/Reassessments: Patient feels significantly improved after blood pressure improvement. He is breathing comfortably no distress. Agreeable to hospitalization Ernie Mcgarry MD Past Med/Surg History Medical History (Updated 01/10/22 @ 16:10 by Ernie Mcgarry MD) Abdominal pain Acute bronchitis Acute pharyngitis ADHD (attention deficit hyperactivity disorder) C3 cervical fracture Closed head injury Congenital obstruction of ureteropelvic junction Contusion of right hand including fingers Developmental articulation disorder Diabetes mellitus Dizziness Fall down stairs Gastritis Headache History of diabetes mellitus Hypothyroidism Injury of right leg Pneumonia Vomiting Surgical History H/O partial nephrectomy S/P orchiopexy S/P tonsillectomy and adenoidectomy Family History Other Cancer Diabetes Hypertension Social History Smoking Status: Current some day smoker Tobacco Type: Cigarettes Preferred Language: [place] Communication Ability: Effective Boiler Riveter Required: No Beliefs That Will Affect Care: None marital status: Single Current Living Situation: Family current occupational status: unemployed Feels Safe at Home: Yes Assistive Devices: None Allergies Allergies Allergy/AdvReac Type Severity Reaction Status Date / Time lamotrigine Allergy Mild RASH Verified 10/26/19 20:54 Home Meds Home Medications Medication Instructions Recorded Confirmed aripiprazole 400 mg intramuscular 400 mg IM .Q28 DAYS 10/26/19 01/10/22 suspension,extended release (Lucindalikevin Anujtriciaa) benztropine 1 mg tablet 1 mg PO BID 10/26/19 01/10/22 atomoxetine 40 mg capsule 40 mg PO 01/10/22 clonidine HCl 0.3 mg tablet 0.3 mg 01/10/22 Results & Data (ED) Vital Signs Vital Signs - 24 hr 01/10/22 09:24 01/10/22 09:30 01/10/22 10:23 Temperature 36.9 C Temperature Source Temporal Artery Scan Pulse Rate 87 71 Pulse Rate from SpO2 Sensor Respiratory Rate 18 20 Blood Pressure 195/119 H Blood Pressure Mean 144 Pulse Oximetry 96 Oxygen Delivery Method Room Air Room Air Sepsis New/Unexplained Change in Mental Status No Sepsis Action Taken by Nursing No Action Required 01/10/22 10:30 01/10/22 10:34 01/10/22 10:34 Temperature Temperature Source Pulse Rate 77 66 Pulse Rate from SpO2 Sensor Respiratory Rate 22 20 Blood Pressure 172/99 H Blood Pressure Mean 123 Pulse Oximetry Oxygen Delivery Method Sepsis New/Unexplained Change in Mental Status Sepsis Action Taken by Nursing 01/10/22 11:16 01/10/22 12:00 01/10/22 12:02 Temperature Temperature Source Pulse Rate 74 77 79 Pulse Rate from SpO2 Sensor 81 78 Respiratory Rate 19 16 20 Blood Pressure 179/111 H 194/113 H 194/113 H Blood Pressure Mean 133 140 140 Pulse Oximetry 95 96 96 Oxygen Delivery Method Sepsis New/Unexplained Change in Mental Status Sepsis Action Taken by Nursing 01/10/22 12:26 01/10/22 12:30 01/10/22 13:00 Temperature Temperature Source Pulse Rate 64 69 70 Pulse Rate from SpO2 Sensor 66 70 71 Respiratory Rate 16 19 17 Blood Pressure 184/119 H 163/111 H 153/104 H Blood Pressure Mean 140 128 120 Pulse Oximetry 95 95 97 Oxygen Delivery Method Sepsis New/Unexplained Change in Mental Status Sepsis Action Taken by Nursing Laboratory Data Result diagrams: 01/10/22 09:55 01/10/22 09:55 Lab Results 01/10/22 01/10/22 01/10/22 Range/Units 09:55 09:55 09:55 WBC 8.44 (4.8-10.8) K/ul RBC 5.08 (4.63-6.08) M/uL Hgb 15.5 (14.0-18.0) g/dl Hct 45.9 (40.1-51.0) % MCV 90.4 (80.0-100.0) fL MCH 30.5 (25.0-34.0) pg MCHC 33.8 (32.0-36.0) g/dL RDW Std Deviation 44.0 (36.4-46.3) fL RDW Coeff of Gustavo 13.3 (11.5-14.5) % Plt Count 324 (130-400) K/uL MPV 8.9 L (9.4-12.4) fL Immature Gran % (Auto) 0.2 % Neut % (Auto) 59.5 % Lymph % (Auto) 30.2 % [place] % (Auto) 6.9 % Eos % (Auto) 2.6 % Baso % (Auto) 0.6 % Neut # (Auto) 5.02 (1.4-6.5) K/uL Lymph # (Auto) 2.55 (1.2-3.4) K/uL [place] # (Auto) 0.58 (0.24-0.82) K/uL Eos # (Auto) 0.22 (0-0.50) K/uL Baso # (Auto) 0.05 (0-0.2) K/uL Immature Gran # (Auto) 0.02 (0.00-0.02) K/uL PT (9.0-12.0) Seconds INR (0.9-1.1) Sodium 137 (136-145) mmol/L Potassium 4.1 (3.5-5.1) mmol/L Chloride 100 (98-107) mmol/L Carbon Dioxide 30 (21-32) mmol/L Anion Gap 7 (3-11) BUN 11 (6-23) mg/dl Creatinine 0.85 (0.6-1.4) mg/dl Est Cr Clr Drug Dosing 178.9 ml/min Est GFR ( Amer) 138.4 ml/min Est GFR (Non-Af Amer) 119.4 ml/min BUN/Creatinine Ratio 12.9 (10-20) Glucose 90 (70-99(Fasting)) mg/dl Calcium 9.3 (8.5-10.1) mg/dl Magnesium 1.9 (1.7-2.4) mg/dl Total Bilirubin 0.5 (0.2-1.0) mg/dl Direct Bilirubin 0.1 (0-0.2) mg/dl AST 23 (13-39) U/L ALT 50 (7-52) U/L Alkaline Phosphatase 47 (34-104) U/L Total Creatine Kinase 187 (30-223) U/L Troponin I High Sens 10.3 (0-20) pg/ml Total Protein 7.6 (6.0-8.3) gm/dl Albumin 4.5 (3.4-5.0) gm/dl TSH 2.503 (0.300-4.500) uIu/ml SARS-CoV-2 (PCR) (Negative) Influenza Type A (PCR) (Neg) Influenza Type B (PCR) (Neg) RSV (RT-PCR) (Neg) 01/10/22 01/10/22 Range/Units 09:55 10:00 WBC (4.8-10.8) K/ul RBC (4.63-6.08) M/uL Hgb (14.0-18.0) g/dl Hct (40.1-51.0) % MCV (80.0-100.0) fL MCH (25.0-34.0) pg MCHC (32.0-36.0) g/dL RDW Std Deviation (36.4-46.3) fL RDW Coeff of Gustavo (11.5-14.5) % Plt Count (130-400) K/uL MPV (9.4-12.4) fL Immature Gran % (Auto) % Neut % (Auto) % Lymph % (Auto) % [place] % (Auto) % Eos % (Auto) % Baso % (Auto) % Neut # (Auto) (1.4-6.5) K/uL Lymph # (Auto) (1.2-3.4) K/uL [place] # (Auto) (0.24-0.82) K/uL Eos # (Auto) (0-0.50) K/uL Baso # (Auto) (0-0.2) K/uL Immature Gran # (Auto) (0.00-0.02) K/uL PT 10.2 (9.0-12.0) Seconds INR 1.0 (0.9-1.1) Sodium (136-145) mmol/L Potassium (3.5-5.1) mmol/L Chloride (98-107) mmol/L Carbon Dioxide (21-32) mmol/L Anion Gap (3-11) BUN (6-23) mg/dl Creatinine (0.6-1.4) mg/dl Est Cr Clr Drug Dosing ml/min Est GFR ( Amer) ml/min Est GFR (Non-Af Amer) ml/min BUN/Creatinine Ratio (10-20) Glucose (70-99(Fasting)) mg/dl Calcium (8.5-10.1) mg/dl Magnesium (1.7-2.4) mg/dl Total Bilirubin (0.2-1.0) mg/dl Direct Bilirubin (0-0.2) mg/dl AST (13-39) U/L ALT (7-52) U/L Alkaline Phosphatase (34-104) U/L Total Creatine Kinase (30-223) U/L Troponin I High Sens (0-20) pg/ml Total Protein (6.0-8.3) gm/dl Albumin (3.4-5.0) gm/dl TSH (0.300-4.500) uIu/ml SARS-CoV-2 (PCR) NEGATIVE (Negative) Influenza Type A (PCR) Negative (Neg) Influenza Type B (PCR) Negative (Neg) RSV (RT-PCR) Negative (Neg) Administered Medications Discontinued Medications Hydralazine HCl (Hydralazine Hcl 20 Mg/Ml Vial) 10 mg IV NOW STA Stop: 01/10/22 12:28 Last Admin: 01/10/22 12:31 Dose: 10 mg Documented By: JINA Acetaminophen (Ofirmev) 1,000 mg in 100 mls @ 400 mls/hr IV NOW STA Stop: 01/10/22 09:53 Last Infusion: 01/10/22 10:26 Dose: 0 mls/hr Documented By: Admin: 01/10/22 10:11 Dose: 400 mls/hr Documented By: JESSICA Sodium Chloride (Nss 1000ml) 1,000 mls @ 999 mls/hr IV .Q1H1M ONE Stop: 01/10/22 10:39 Last Infusion: 01/10/22 13:14 Dose: 0 mls/hr Documented By: Admin: 01/10/22 10:01 Dose: 999 mls/hr Documented By: JESSICA Ioversol (Optiray 320 500ml) 108 ml IV ONCE ONE Stop: 01/10/22 11:16 Last Admin: 01/10/22 11:16 Dose: 108 ml Documented By: HANNAH Labetalol HCl (Labetalol Hcl Iv 5 Mg/Ml 20ml) 10 mg IV NOW STA Stop: 01/10/22 09:47 Last Admin: 01/10/22 10:11 Dose: 10 mg Documented By: JESSICA Co-signed By: DAREN Labetalol HCl (Labetalol Hcl Iv 5 Mg/Ml 20ml) 10 mg IV NOW STA Stop: 01/10/22 11:38 Last Admin: 01/10/22 12:03 Dose: 10 mg Documented By: JINA Co-signed By: QGV Ondansetron HCl (Ondansetron Inj 2 Mg/Ml 2 Ml Vial) 4 mg IV NOW STA Stop: 01/10/22 09:40 Last Admin: 01/10/22 10:11 Dose: 4 mg Documented By: JESSICA Imaging Data Radiologist's Impression: Head CTA 01/10/22 09:39 HEAD & NECK CTA HISTORY: sudden onset severe headache, syncope TECHNIQUE: Multiaxial CT images of the head were performed both before and after the intravenous administration of contrast to evaluate the major cerebral vessels. Multiaxial CT images of the neck were also performed following the intravenous administration of contrast to evaluate the major cervical vessels. Maximum intensity projection images were also obtained. A dose lowering t echnique was utilized adhering to the principles of ALARA. COMPARISON: Head CT 01/09/2022. FINDINGS: There is no mass, hematoma, midline shift, or acute infarct. Visualized intracranial internal carotid arteries, distal vertebral arteries, and basilar artery are widely patent. There is no significant stenosis, occlusion, or aneurysm seen within the bilateral ACAs, MCAs, or clinical trials manager. The major dural venous sinuses are patent. The aortic arch and proximal great vessels are widely patent. There is no significant stenosis, occlusion, or dissection identified within the bilateral common carotid, internal carotid, or vertebral arteries. IMPRESSION: 1. No acute intracranial abnormality. 2. No significant stenosis, occlusion, or aneurysm within the [place]. 3. No significant stenosis, occlusion, or dissection identified within the carotid or vertebral arteries. ACT 112: Negative or not required by law. Electronically signed by: Moises Packer M.D. 01/10/2022 11:26 AM Neck CTA 01/10/22 09:39 HEAD & NECK CTA HISTORY: sudden onset severe headache, syncope TECHNIQUE: Multiaxial CT images of the head were performed both before and after the intravenous administration of contrast to evaluate the major cerebral vessels. Multiaxial CT images of the neck were also performed following the intravenous administration of contrast to evaluate the major cervical vessels. Maximum intensity projection images were also obtained. A dose lowering technique was utilized adhering to the principles of ALARA. COMPARISON: Head CT 01/09/2022. FINDINGS: There is no mass, hematoma, midline shift, or acute infarct. Visualized intracranial internal carotid arteries, distal vertebral arteries, and basilar artery are widely patent. There is no significant stenosis, occlusion, or aneurysm seen within the bilateral ACAs, MCAs, or clinical trials manager. The major dural venous sinuses are patent. The aortic arch and proximal great vessels are widely patent. There is no significant stenosis, occlusion, or dissection identified within the bilateral common carotid, internal carotid, or vertebral arteries. IMPRESSION: 1. No acute intracranial abnormality. 2. No significant stenosis, occlusion, or aneurysm within the [place]. 3. No significant stenosis, occlusion, or dissection identified within the carotid or vertebral arteries. ACT 112: Negative or not required by law. Electronically signed by: Moises Packer M.D. 01/10/2022 11:26 AM Discharge Plan Visit Data Chief Complaint: Syncope Stated Complaint: PASSED OUT, VOMIT, HEADACHE, ED Provider: Ernie Mcgarry Discharge Problem: Hypertensive urgency, Headache, Syncope and collapse Patient Disposition: Admitted As Inpatient Discharge Instructions Interventions: ED Discharge Assessment Last Done: 01/10/22 15:18 : Headache Qualifiers: Headache type: unspecified Headache chronicity pattern: acute headache Intractability: not intractable Qualified Code(s): R51.9 - Headache, unspecified
[2022-01-10 10:16] LABS: Basophils # (auto) 0.05 K/uL (0-0.2); Basophils % (auto) 0.6 %; Eosinophils # (auto) 0.22 K/uL (0-0.50); Eosinophils % (auto) 2.6 %; Hematocrit (blood only) 45.9 % (40.1-51.0); Hemoglobin 15.5 g/dl (14.0-18.0); Immature Granulocytes # (auto) 0.02 K/uL (0.00-0.02); Immature Granulocytes % (auto) 0.2 %; Lymphocytes # (auto) 2.55 K/uL (1.2-3.4); Lymphocytes % (auto) 30.2 %; Mean Corpuscular Hemoglobin 30.5 pg (25.0-34.0); Mean Corpuscular Hgb Conc 33.8 g/dL (32.0-36.0); Mean Corpuscular Volume 90.4 fL (80.0-100.0); Mean Platelet Volume 8.9 fL (9.4-12.4); Monocytes # (auto) 0.58 K/uL (0.24-0.82); Monocytes % (auto) 6.9 %; Neutrophils # (auto) 5.02 K/uL (1.4-6.5); Neutrophils % (auto) 59.5 %; Platelet Count 324 K/uL (130-400); RDW Coefficient of Variation 13.3 % (11.5-14.5); Red Blood Count 5.08 M/uL (4.63-6.08); White Blood Count 8.44 K/ul (4.8-10.8)
[2022-01-10 10:26] LABS: Prothrombin Time 10.2 Seconds (9.0-12.0)
[2022-01-10 10:36] LABS: Albumin Level 4.5 gm/dl (3.4-5.0); BUN Creatinine Ratio 12.9 (10-20); Bilirubin Direct 0.1 mg/dl (0-0.2); Bilirubin,Total 0.5 mg/dl (0.2-1.0); Calcium 9.3 mg/dl (8.5-10.1); Creatinine Clr Calc Pharmacy 178.9 ml/min; Est GFR (African American) 138.4 ml/min; Est GFR (Non-African American) 119.4 ml/min; Magnesium 1.9 mg/dl (1.7-2.4); Potassium 4.1 mmol/L (3.5-5.1); Total Protein 7.6 gm/dl (6.0-8.3)
[2022-01-10 10:41] LABS: Troponin I High Sensitivity 10.3 pg/ml (0-20)
[2022-01-10] MEDS ORDERED: OPTIRAY 320 500ml IV ONE (11:15)
[2022-01-10 11:20] LABS: Influenza A virus by PCR Negative (Neg); Influenza B virus by PCR Negative (Neg); RSV by PCR Negative (Neg); SARS CoV2 RNA(COVID-19) InHosp NEGATIVE (Negative)
--- NOTE | 2022-01-10 11:28 | CT Scan Report ---
HEAD & NECK CTA HISTORY: sudden onset severe headache, syncope TECHNIQUE: Multiaxial CT images of the head were performed both before and after the intravenous admi nistration of contrast to evaluate the major cerebral vessels. Multiaxial CT images of the neck were also performed following the intravenous administration of contrast to evaluate the major cervical ve ssels. Maximum intensity projection images were also obtained. A dose lowering technique was utilized adhering to the principles of ALARA. COMPARISON: Head CT 01/09/2022. FINDINGS: There is no mass, hematoma, midline shift, or acute infarct. Visualized intracranial internal carotid arteries, distal vertebral arteries, and basilar artery are widely patent. There is no significant s tenosis, occlusion, or aneurysm seen within the bilateral ACAs, MCAs, or photogrammetrist. The major dural venous sinuses are patent. The aortic arch and proximal great vessels are widely patent. There is no significant stenosis, occ lusion, or dissection identified within the bilateral common carotid, internal carotid, or vertebral arteries. IMPRESSION: 1. No acute intracranial abnormality. 2. No significant stenosis, occlusion, or aneurysm within the [place]. 3. No significant stenosis, occlusion, or dissection identified within the carotid or vertebral arter ies. ACT 112: Negative or not required by law. Electronically signed by: Moises Packer M.D. 01/10/2022 11:26 AM
--- NOTE | 2022-01-10 11:28 | CT Scan Report ---
HEAD & NECK CTA HISTORY: sudden onset severe headache, syncope TECHNIQUE: Multiaxial CT images of the head were performed both before and after the intravenous admi nistration of contrast to evaluate the major cerebral vessels. Multiaxial CT images of the neck were also performed following the intravenous administration of contrast to evaluate the major cervical ve ssels. Maximum intensity projection images were also obtained. A dose lowering technique was utilized adhering to the principles of ALARA. COMPARISON: Head CT 01/09/2022. FINDINGS: There is no mass, hematoma, midline shift, or acute infarct. Visualized intracranial internal carotid arteries, distal vertebral arteries, and basilar artery are widely patent. There is no significant s tenosis, occlusion, or aneurysm seen within the bilateral ACAs, MCAs, or biologist aide. The major dural venous sinuses are patent. The aortic arch and proximal great vessels are widely patent. There is no significant stenosis, occ lusion, or dissection identified within the bilateral common carotid, internal carotid, or vertebral arteries. IMPRESSION: 1. No acute intracranial abnormality. 2. No significant stenosis, occlusion, or aneurysm within the [place]. 3. No significant stenosis, occlusion, or dissection identified within the carotid or vertebral arter ies. ACT 112: Negative or not required by law. Electronically signed by: Moises Packer M.D. 01/10/2022 11:26 AM
[2022-01-10] MEDS ORDERED: hydrALAZINE HCL 20 MG/ML VIAL IV STA (12:27)
[2022-01-10] MEDS ORDERED: ACETAMINOPHEN 325 MG TAB PO PRN (14:09)
--- NOTE | 2022-01-10 14:31 | History & Physical Report ---
Date of Service January 10, 2022 Assessment & Plan (1) Syncope: Plan: Hypertensive urgency Patient with known history of hypertension, presented yesterday in the ED as well as today with uncontrolled BP and headache Today received labetalol and hydralazine, BP is now 153/104 Previously on clonidine, however patient stopped the medication himself about 6 months ago He believes the medical marijuana would control his blood pressure Patient is also morbidly obese, with BMI of 55, and discussed weight loss with him Yesterday after he came from ED, patient did not feel his best, overnight had syncopal episode, found this morning by his mother lying in the hallway Currently feels well, denies any more headache CTA head and neck negative in the ED, troponin negat. Will admit for observation, on telemetry Will obtain urine tox Orthostatic vital signs Echocardiogram Plan to restart home clonidine Continue to closely monitor blood pressure Patient previously used illegal drugs, now reports no use for over 10 years When found by mother, he was incontinent of urine and stool however patient has stool incontinence for about a year Fecal incontinence Seen by GI as outpatient, plan for EGD and colonoscopy January 23, with Dr. Jimenez Will obtain stool PCR now ADHD, anxiety depression -Follows with [facility] - he is on Abilify 400 mg IM monthly, already received a dose earlier this month. Other medications includes benztropine 1 mg twice daily, and buspirone 10 mg twice daily. Atomoxetine 40 daily. - for now hold atomoxitin (as it can contribute to elev. BP) - may need to discuss his meds further w/ psychiatry History of Present Illness Chief Complaint: syncope, hypertensive urgency Primary Care Provider: Christofer Benavides MD Pt is a 26 M w/ ADHD, HTN, morbid obesity, BMI 55, history of drug abuse in remission, history of Wilms tumor status post surgical revision of kidney, who presents after syncopal episode. Patient presented yesterday in the ED due to back pain, headache and elevated blood pressure. Patient was prescribed clonidine however he did not take clonidine for about 6 months. In the ED CT of lumbar spine was obtained, as well as CT head, both unrevealing. Patient was treated for blood pressure and his blood pressure has improved. Patient was discharged home. Currently patient presents with his mother at the bedside. They report that patient did not feel his best when he came home however he was watching TV with his family yesterday. At night patient reports that he was going to bathroom and after that he does not remember much. Patient's mother reports that she found him in the hallway in the morning laying down. Patient was incontinent of urine and stool. He then presented into ED today, with uncontrolled blood pressure/hypertension, and severe headache. He required labetalol and hydralazine, and his BP has improved. Per chart review, and discussion with the patient and family, patient has had had stool incontinence for about a year now, almost daily. He was seen by GI as outpatient and was prescribed dicyclomine and omeprazole. Per mother this has not been helping much. He is scheduled for EGD/endoscopy with Dr. Jimenez for January 23. When discussed why patient stopped taking clonidine, he reports that he thought medical marijuana would help with his hypertension. Patient is also morbidly obese, and I discussed weight loss with him. For ADHD, anxiety depression he follows at [facility], he is on Abilify 400 mg IM monthly, already received a dose earlier this month. Other medication includes benztropine 1 mg twice daily, and buspirone 10 mg twice daily. Atomoxetine 40 daily. Patient also has known history of illegal drug use but says that he has not used illegal drugs for about 10 years. Currently patient feels well, reports headache has resolved. He is alert oriented answering questions appropriately. Denies any fevers, chills, chest pain, shortness of breath, abdomen pain, weakness numbness in extremities. Previously reported nausea, seems that has resolved and he is asking about diet. Allergies Allergy/AdvReac Type Severity Reaction Status Date / Time lamotrigine Allergy Mild RASH Verified 10/26/19 20:54 Home Medications Medication Instructions Recorded Confirmed Type acyclovir 400 mg tablet 0 mg PO DIRECTED PRN NEEDED 10/26/19 10/26/19 History aripiprazole 400 mg intramuscular 400 mg IM .Q28 DAYS 10/26/19 10/26/19 History suspension,extended release (Abilify Maintena) benztropine 1 mg tablet 1 mg PO BID 10/26/19 10/26/19 History clonidine HCl 0.2 mg tablet 0.2 mg PO DIRECTED 10/26/19 10/26/19 History hydrocodone 5 mg-acetaminophen 325 1 tab PO Q8H PRN pain #9 tabs 10/26/19 Rx mg tablet ([facility]) Past Med/Surg History Medical History (Updated 01/10/22 @ 14:20 by Aaron Plascencia MD) Abdominal pain Acute bronchitis Acute pharyngitis ADHD (attention deficit hyperactivity disorder) C3 cervical fracture Closed head injury Congenital obstruction of ureteropelvic junction Contusion of right hand including fingers Developmental articulation disorder Diabetes mellitus Dizziness Fall down stairs Gastritis Headache History of diabetes mellitus Hypothyroidism Injury of right leg Pneumonia Vomiting Surgical History H/O partial nephrectomy S/P orchiopexy S/P tonsillectomy and adenoidectomy Family History Other Cancer Diabetes Hypertension Social History Smoking Status: Current some day smoker Tobacco Type: Cigarettes Preferred Language: Hungarian Communication Ability: Effective Netsuite Developer Required: No Beliefs That Will Affect Care: None marital status: Single Current Living Situation: Family current occupational status: unemployed Feels Safe at Home: Yes Assistive Devices: None Review of Systems Review of Systems: All systems reviewed & are unremarkable except as noted in HPI & below Physical Exam Constitutional: WD/WN, vitals as above (morbidly obese young M in NAD) Eyes: PERRL, conjunctivae normal, anicteric sclerae ENMT: external ear and nose normal, oropharynx normal Neck: + thick neck Respiratory: normal respiratory effort, lungs clear to auscultation Cardiovascular: RRR, no murmur, no edema Chest (Breasts): Chest: normal inspection of chest Gastrointestinal (Abdomen): normal bowel sounds, soft, nontender, no hepatosplenomegaly (obese) Musculoskeletal: no cyanosis or clubbing, extremities motor strength 5/5 Skin: no rashes, warm and dry Neurologic: PERRL, EOMI, accommodation nl, no face palsy, no dysarthria Psychiatric: A+Ox3, euthymic affect Genitourinary: no CVA tenderness Lymphatic: + lymphedema (mild b/l) Results & Data Results & Data ([facility]) Vital Signs (Past 12 Hours) Vital Signs Temp Pulse Resp BP Pulse Ox O2 Del Method 01/10/22 13:00 70 17 153/104 H 97 01/10/22 12:30 69 19 163/111 H 95 01/10/22 12:26 64 16 184/119 H 95 01/10/22 12:02 79 20 194/113 H 96 01/10/22 12:00 77 16 194/113 H 96 01/10/22 11:16 74 19 179/111 H 95 01/10/22 10:34 66 20 01/10/22 10:34 172/99 H 01/10/22 10:30 77 22 01/10/22 10:23 71 20 01/10/22 09:30 Room Air 01/10/22 09:24 36.9 C 87 18 195/119 H 96 Room Air Laboratory Results 01/10/22 01/10/22 01/10/22 Range/Units 10:00 09:55 09:55 WBC 8.44 (4.8-10.8) K/ul RBC 5.08 (4.63-6.08) M/uL Hgb 15.5 (14.0-18.0) g/dl Hct 45.9 (40.1-51.0) % MCV 90.4 (80.0-100.0) fL MCH 30.5 (25.0-34.0) pg MCHC 33.8 (32.0-36.0) g/dL RDW Std Deviation 44.0 (36.4-46.3) fL RDW Coeff of Gustavo 13.3 (11.5-14.5) % Plt Count 324 (130-400) K/uL MPV 8.9 L (9.4-12.4) fL Immature Gran % (Auto) 0.2 % Neut % (Auto) 59.5 % Lymph % (Auto) 30.2 % Starke % (Auto) 6.9 % Eos % (Auto) 2.6 % Baso % (Auto) 0.6 % Neut # (Auto) 5.02 (1.4-6.5) K/uL Lymph # (Auto) 2.55 (1.2-3.4) K/uL Starke # (Auto) 0.58 (0.24-0.82) K/uL Eos # (Auto) 0.22 (0-0.50) K/uL Baso # (Auto) 0.05 (0-0.2) K/uL Immature Gran # (Auto) 0.02 (0.00-0.02) K/uL PT 10.2 (9.0-12.0) Seconds INR 1.0 (0.9-1.1) Sodium (136-145) mmol/L Potassium (3.5-5.1) mmol/L Chloride (98-107) mmol/L Carbon Dioxide (21-32) mmol/L Anion Gap (3-11) BUN (6-23) mg/dl Creatinine (0.6-1.4) mg/dl Est Cr Clr Drug Dosing ml/min Est GFR ( Amer) ml/min Est GFR (Non-Af Amer) ml/min BUN/Creatinine Ratio (10-20) Glucose (70-99(Fasting)) mg/dl Calcium (8.5-10.1) mg/dl Magnesium (1.7-2.4) mg/dl Total Bilirubin (0.2-1.0) mg/dl Direct Bilirubin (0-0.2) mg/dl AST (13-39) U/L ALT (7-52) U/L Alkaline Phosphatase (34-104) U/L Total Creatine Kinase (30-223) U/L Troponin I High Sens (0-20) pg/ml Total Protein (6.0-8.3) gm/dl Albumin (3.4-5.0) gm/dl TSH (0.300-4.500) uIu/ml SARS-CoV-2 (PCR) NEGATIVE (Negative) Influenza Type A (PCR) Negative (Neg) Influenza Type B (PCR) Negative (Neg) RSV (RT-PCR) Negative (Neg) 01/10/22 01/10/22 Range/Units 09:55 09:55 WBC (4.8-10.8) K/ul RBC (4.63-6.08) M/uL Hgb (14.0-18.0) g/dl Hct (40.1-51.0) % MCV (80.0-100.0) fL MCH (25.0-34.0) pg MCHC (32.0-36.0) g/dL RDW Std Deviation (36.4-46.3) fL RDW Coeff of Gustavo (11.5-14.5) % Plt Count (130-400) K/uL MPV (9.4-12.4) fL Immature Gran % (Auto) % Neut % (Auto) % Lymph % (Auto) % Starke % (Auto) % Eos % (Auto) % Baso % (Auto) % Neut # (Auto) (1.4-6.5) K/uL Lymph # (Auto) (1.2-3.4) K/uL Starke # (Auto) (0.24-0.82) K/uL Eos # (Auto) (0-0.50) K/uL Baso # (Auto) (0-0.2) K/uL Immature Gran # (Auto) (0.00-0.02) K/uL PT (9.0-12.0) Seconds INR (0.9-1.1) Sodium 137 (136-145) mmol/L Potassium 4.1 (3.5-5.1) mmol/L Chloride 100 (98-107) mmol/L Carbon Dioxide 30 (21-32) mmol/L Anion Gap 7 (3-11) BUN 11 (6-23) mg/dl Creatinine 0.85 (0.6-1.4) mg/dl Est Cr Clr Drug Dosing 178.9 ml/min Est GFR ( Amer) 138.4 ml/min Est GFR (Non-Af Amer) 119.4 ml/min BUN/Creatinine Ratio 12.9 (10-20) Glucose 90 (70-99(Fasting)) mg/dl Calcium 9.3 (8.5-10.1) mg/dl Magnesium 1.9 (1.7-2.4) mg/dl Total Bilirubin 0.5 (0.2-1.0) mg/dl Direct Bilirubin 0.1 (0-0.2) mg/dl AST 23 (13-39) U/L ALT 50 (7-52) U/L Alkaline Phosphatase 47 (34-104) U/L Total Creatine Kinase 187 (30-223) U/L Troponin I High Sens 10.3 (0-20) pg/ml Total Protein 7.6 (6.0-8.3) gm/dl Albumin 4.5 (3.4-5.0) gm/dl TSH 2.503 (0.300-4.500) uIu/ml SARS-CoV-2 (PCR) (Negative) Influenza Type A (PCR) (Neg) Influenza Type B (PCR) (Neg) RSV (RT-PCR) (Neg) Code Status & VTE Plan VTE Prophylaxis Plan VTE Prophylaxis will be ordered: Yes
--- NOTE | 2022-01-10 14:49 | Electrocardiogram Report ---
Test Reason : Blood Pressure : / mmHG Vent. Rate : 075 BPM Atrial Rate : 075 BPM P-R Int : 182 ms QRS Dur : 082 ms QT Int : 396 ms P-R-T Axes : 032 050 038 degrees QTc Int : 442 ms Normal sinus rhythm Normal ECG When compared with ECG of 09-JAN-2022 12:27, No significant change was found Confirmed by Leo Gamez ([id number]) on 01/10/2022 2:49:26 PM Referred By: REFERRED SELF Confirmed By:Leo Gamez
[2022-01-10 15:09] LABS: Appearance Urine Clear (Clear); Bilirubin Urine Negative (Negative); Blood Urine Negative (Negative); Color Urine Yellow; Glucose Urine UA Negative (Negative); Ketones Urine Negative (Negative); Leukocyte Esterase Urine Negative (Negative); Nitrite Urine Negative (Negative); Protein Urine Negative (Negative); Specific Gravity Urine 1.035 (1.000-1.030); Urobilinogen Urine Negative (Negative)
[2022-01-10 15:31] LABS: Amphetamines+Metham, Urine Neg (Neg); Barbiturates, Urine Neg (Neg); Benzodiazepine, Urine Neg (Neg); Cocaine, Urine Neg (Neg); MDMA (Ecstacy), Urine Neg (Neg); Methadone, Urine Neg (Neg); Opiate, Urine Neg (Neg); Phencyclidine, Urine Neg (Neg)
[2022-01-10] MEDS ORDERED: cloNIDine HCL 0.3 MG TAB PO SCH (21:00)
[2022-01-10] MEDS: busPIRone 5 MG TAB PO SCH (21:18)
[2022-01-10] MEDS: BENZTROPINE MESYLATE 1 MG TAB PO SCH (21:19)
[2022-01-11 07:18] LABS: Hematocrit (blood only) 42.2 % (40.1-51.0); Hemoglobin 14.3 g/dl (14.0-18.0); Mean Corpuscular Hemoglobin 30.8 pg (25.0-34.0); Mean Corpuscular Hgb Conc 33.9 g/dL (32.0-36.0); Mean Corpuscular Volume 90.8 fL (80.0-100.0); Mean Platelet Volume 9.1 fL (9.4-12.4); Platelet Count 298 K/uL (130-400); RDW Coefficient of Variation 13.7 % (11.5-14.5); RDW Standard Deviation 45.4 fL (36.4-46.3); Red Blood Count 4.65 M/uL (4.63-6.08); White Blood Count 7.65 K/ul (4.8-10.8)
[2022-01-11] MEDS: busPIRone 5 MG TAB PO SCH (07:21)
[2022-01-11] MEDS: BENZTROPINE MESYLATE 1 MG TAB PO SCH (07:21)
[2022-01-11 07:44] LABS: Albumin Globulin Ratio 1.6 (0.9-2); Albumin Level 4.1 gm/dl (3.4-5.0); BUN Creatinine Ratio 12.2 (10-20); Bilirubin,Total 0.5 mg/dl (0.2-1.0); Calcium 9.1 mg/dl (8.5-10.1); Creatinine Clr Calc Pharmacy 168.1 ml/min; Est GFR (African American) 135.2 ml/min; Est GFR (Non-African American) 116.6 ml/min; Globulin 2.6 gm/dl (2.5-4.0); Phosphorus 3.4 mg/dl (2.5-4.9); Total Protein 6.7 gm/dl (6.0-8.3)
--- NOTE | 2022-01-11 12:48 | XCELERA ---
[id number]
[2022-01-11] MEDS ORDERED: LOSARTAN POTASSIUM 50 MG TAB PO STA (13:59)
--- NOTE | 2022-01-11 14:12 | Hospitalist Progress Note ---
Date of Service January 11, 2022 Assessment & Plan (1) Syncope: Plan: Patient with known history of hypertension, presented with uncontrolled BP and headache. Improved after labetalol and hydralazine Previously on clonidine, however patient stopped the medication himself about 6 months ago This was restarted overnight He believes the medical marijuana would control his blood pressure Patient is also morbidly obese, with BMI of 55, and discussed weight loss with him Regarding syncope, workup including CTA head and neck negative in the ED, HS troponin negative, EKG nonischemic. Echo revealed EF 60-65% with mild concentric left ventricular hypertrophy. No significant valvular disease was seen. Patient previously used illegal drugs, now reports no use for over 10 years When found by mother, he was incontinent of urine and stool however patient has stool incontinence for about a year-less suspicious of seizure. (2) Hypertensive urgency: Plan: BP more controlled overnight but not yet to goal <130/80. Outpatient record review revealed SBP in the 150s on average. Start losartan 50mg PO daily now and stop clonidine which has unwanted side effects and is not as effective at controlling blood pressure. BMP needed in two weeks along with PCP check of BP and titration of medication as appropriate to hit his goal. Low salt diet recommended and we discussed what that means. Also, with his young age, would be concerned for secondary causes of HTN including but not limited to DAMIEN. Recommended outpatient polysomnogram. REferral to be obtained from PCP. (3) ADHD (attention deficit hyperactivity disorder): Plan: Cont Strattera per home regimen and continue with outpatient counseling. This is helping him in school but may also increase the blood pressure. Should be noted for titration of losartan outpatient. He also takes Abilify 400mg IM monthly and takes bentropine and Buspar. Again, continue counseling along with medication therapy. (4) Morbid obesity: Plan: We discussed the importance of decreasing his overall percent body fat and increasing lean muscle mass. To do this a few things were discussed including referral to nutrition, who may consider starting Ozempic for insulin resistance. Second diet modifications to start with would be cutting out all sugary drinks completely and just sticking with water. Third, he is recommended to do moderate intensity cardiovascular exercise at least 150 minutes per week. Referral to trim crew supervisor may be obtained by his PCP. (5) Fecal incontinence: Plan: Fecal incontinence Seen by GI as outpatient, plan for EGD and colonoscopy January 23, with Dr. Jimenez Stool sample was not collected during this admission. (6) DVT prophylaxis: Plan: SCDs/ambulation Full Code Dispo-to home with close primary care follow-up in two weeks. DO Gilmar Steward Hospitalist Admission and Anticipated Discharge Date Admission Date: January 10, 2022 Subjective 26 yo M admitted for syncope -morbidly obese, stopped clonidine 6 months ago -clonidine makes him groggy in the morning -reports daytime fatigue and easy falling asleep during day -doesn't feel rested when he wakes up; on Strattera for ADD which he needs for school -seeing a counselor at [facility] to help wtih ADD -smokes on occasion -feels back to normal today, denies dizziness or other symptoms and wants to go home -yesterday reports feeling tired and had just woken up when he fell back asleep in the hallway. -he remembers family waking him up and was clear at that time -appears stressed out about school to a certain extent -we discussed BP goal and goals for weight and nutrition as outlined below. Review of Systems Review of Systems: All systems were reviewed and negative except as indicated above Physical Exam Physical Exam: CONSTITUTIONAL: morbid obesity, vitals as above, generally well-appearing, NAD EYES: normal conjunctivae, no scleral icterus ENT: external ear and nose normal, oropharynx clear, MMM NECK: trachea midline RESPIRATORY: clear to auscultation bilaterally, no crackles, rales or wheezes, normal respiratory effort CARDIOVASCULAR: regular rate and rhythm, S1 and 2 heard without murmurs, gallops or rubs, no JVD, no peripheral edema CHEST: inspection of chest was normal GASTROINTESTINAL: soft, nontender, ND, no guarding MUSCULOSKELETAL: strength 5/5 throughout, head is normocephalic and atraumati SKIN: warm and dry NEUROLOGIC: CN 2-12 grossly intact, no sensory deficit, normal cognition, normal speech, no tremor PSYCHIATRIC: alert cooperative and oriented to person, place and time. Euthymic mood, makes good eye contact, language grossly intact, recent and remote memory grossly intact. Results & Data Results & Data ([facility]) Vital Signs (Past 12 Hours) Vital Signs Temp Pulse Pulse Resp BP Pulse Ox O2 Del Method 01/11/22 11:23 36.7 C 73 19 159/93 H 93 Room Air 01/11/22 08:08 36.6 C 73 21 152/88 H 91 Room Air 01/11/22 07:10 66 01/11/22 02:36 36.5 C 73 20 153/77 H 92 Room Air Laboratory Results Short CBC 01/11/22 Range/Units 06:39 WBC 7.65 (4.8-10.8) K/ul Hgb 14.3 (14.0-18.0) g/dl Hct 42.2 (40.1-51.0) % Plt Count 298 (130-400) K/uL BMP 01/11/22 06:39 Sodium 136 Potassium 4.0 Chloride 102 Carbon Dioxide 28 BUN 11 Creatinine 0.90 Glucose 108 H Calcium 9.1 Liver Function 01/11/22 Range/Units 06:39 Total Bilirubin 0.5 (0.2-1.0) mg/dl AST 21 (13-39) U/L ALT 43 (7-52) U/L Alkaline Phosphatase 40 (34-104) U/L Albumin 4.1 (3.4-5.0) gm/dl Urine 01/10/22 Range/Units 14:45 Urine Color Yellow Urine Appearance Clear (Clear) Urine pH 8.0 H (4.5-7.5) Ur Specific [place] 1.035 H (1.000-1.030) Urine Protein Negative (Negative) Urine Glucose (UA) Negative (Negative) Medications Administered Current Inpatient Medications Acetaminophen (Acetaminophen 325 Mg Tab) 650 mg PO Q4H PRN PRN Reason: Pain or Fever Stop: 02/09/22 14:08 Benztropine Mesylate (Benztropine Mesylate 1 Mg Tab) 1 mg PO BID [facility] Stop: 02/09/22 20:59 Last Admin: 01/11/22 07:21 Dose: 1 mg Buspirone HCl (Buspirone 5 Mg Tab) 10 mg PO BID [facility] Stop: 02/09/22 20:59 Last Admin: 01/11/22 07:21 Dose: 10 mg Clonidine HCl (Clonidine Hcl 0.3 Mg Tab) 0.3 mg PO HS [facility] Stop: 02/09/22 20:59 Last Admin: 01/10/22 21:19 Dose: 0.3 mg
--- NOTE | 2022-01-11 14:24 | Discharge Summary ---
Discharge Summary Date of Service January 11, 2022 Admission HPI Per Admitting Provider Pt is a 26 M w/ ADHD, HTN, morbid obesity, BMI 55, history of drug abuse in remission, history of Wilms tumor status post surgical revision of kidney, who presents after syncopal episode. Patient presented yesterday in the ED due to back pain, headache and elevated blood pressure. Patient was prescribed clonidine however he did not take clonidine for about 6 months. In the ED CT of lumbar spine was obtained, as well as CT head, both unrevealing. Patient was treated for blood pressure and his blood pressure has improved. Patient was discharged home. Currently patient presents with his mother at the bedside. They report that patient did not feel his best when he came home however he was watching TV with his family yesterday. At night patient reports that he was going to bathroom and after that he does not remember much. Patient's mother reports that she found him in the hallway in the morning laying down. Patient was incontinent of urine and st ool. He then presented into ED today, with uncontrolled blood pressure/hypertension, and severe headache. He required labetalol and hydralazine, and his BP has improved. Per chart review, and discussion with the patient and family, patient has had had stool incontinence for about a year now, almost daily. He was seen by GI as outpatient and was prescribed dicyclomine and omeprazole. Per mother this has not been helping much. He is scheduled for EGD/endoscopy with Dr. Jimenez for January 23. When discussed why patient stopped taking clonidine, he reports that he thought medical marijuana would help with his hypertension. Patient is also morbidly obese, and I discussed weight loss with him. For ADHD, anxiety depression he follows at [facility], he is on Abilify 400 mg IM monthly, already received a dose earlier this month. Other medication includes benztropine 1 mg twice daily, and buspirone 10 mg twice daily. Atomoxetine 40 daily. Patient also has known history of illegal drug use but says that he has not used illegal drugs for about 10 years. Currently patient feels well, reports headache has resolved. He is alert oriented answering questions appropriately. Denies any fevers, chills, chest pain, shortness of breath, abdomen pain, weakness numbness in extremities. Previously reported nausea, seems that has resolved and he is asking about diet. Principal Dx & Hospital Course #1 = Principal Diagnosis (1) Syncope: Patient with known history of hypertension, presented with uncontrolled BP and headache. Improved after labetalol and hydralazine Previously on clonidine, however patient stopped the medication himself about 6 months ago This was restarted overnight He believes the medical marijuana would control his blood pressure Patient is also morbidly obese, with BMI of 55, and discussed weight loss with him Regarding syncope, workup including CTA head and neck negative in the ED, HS troponin negative, EKG nonischemic. Echo revealed EF 60-65% with mild concentric left ventricular hypertrophy. No significant valvular disease was seen. Patient previously used illegal drugs, now reports no use for over 10 years When found by mother, he was incontinent of urine and stool however patient has stool incontinence for about a year-less suspicious of seizure. (2) Hypertensive urgency: BP more controlled overnight but not yet to goal <130/80. Outpatient record review revealed SBP in the 150s on average. Start losartan 50mg PO daily now and stop clonidine which has unwanted side effects and is not as effective at controlling blood pressure. BMP needed in two weeks along with PCP check of BP and titration of medication as appropriate to hit his goal. Low salt diet recommended and we discussed what that means. Also, with his young age, would be concerned for secondary causes of HTN including but not limited to DAMIEN. Recommended outpatient polysomnogram. REferral to be obtained from PCP. (3) ADHD (attention deficit hyperactivity disorder): Cont Strattera per home regimen and continue with outpatient counseling. This is helping him in school but may also increase the blood pressure. Should be noted for titration of losartan outpatient. He also takes Abilify 400mg IM monthly and takes bentropine and Buspar. Again, continue counseling along with medication therapy. (4) Morbid obesity: We discussed the importance of decreasing his overall percent body fat and increasing lean muscle mass. To do this a few things were discussed including referral to nutrition, who may consider starting Ozempic for insulin resistance. Second diet modifications to start with would be cutting out all sugary drinks completely and just sticking with water. Third, he is recommended to do moderate intensity cardiovascular exercise at least 150 minutes per week. Referral to town justice may be obtained by his PCP. (5) Fecal incontinence: Fecal incontinence Seen by GI as outpatient, plan for EGD and colonoscopy January 23, with Dr. Jimenez Stool sample was not collected during this admission. (6) DVT prophylaxis: SCDs/ambulation Full Code Dispo-to home with close primary care follow-up in two weeks. Katie Fuentes DO [facility]ist Updated Medication List Medication Instructions Recorded Confirmed Type aripiprazole 400 mg intramuscular 400 mg IM .Q28 DAYS 10/26/19 01/10/22 History suspension,extended release (Abilify Maintena) benztropine 1 mg tablet 1 mg PO BID 10/26/19 01/10/22 History atomoxetine 40 mg capsule 40 mg PO 01/10/22 History clonidine HCl 0.3 mg tablet 0.3 mg 01/10/22 History buspirone 10 mg tablet 10 mg PO BID 01/11/22 01/11/22 History losartan 50 mg tablet 50 mg PO DAILY #30 tabs 01/11/22 Rx Hospital Stay Data Consultations 01/10/22 13:06 ED Decision to Admit Stat Diagnostic Imagining Performed 01/10/22 09:39 CT angio head wo/w Stat CT angio neck with con Stat Pending Results Patient Have Any Pending Studies at Discharge: No Discharge Instructions Given to Patient (Per Discharging Provider) Please stop clonidine and start losartan, which is another blood pressure medication. You will need non-fasting bloodwork in two weeks to monitor kidney function and electrolytes. A primary care provider visit is important in the next 1-2 weeks to adjust the dose of losartan as needed and ensure you have the referrals listed here. Recommended outpatient polysomnogram. Referral to SLEEP MEDICINE be obtained from PCP. Recommend outpatient nutrition consult regarding possible Ozempic for weight loss and counseling on diet modifications. Referral to NUTRITION PHYSICIAN to be obtained from PCP. Please cut out all sugary drinks completely and just sticking with water. It is also recommended to reduce your salt intake including sodium that is hidden in frozen or preserved foods. It is recommended that you do moderate intensity cardiovascular exercise at least 150 minutes per week. Stop smoking COMPLETELY for overall risk reduction and good health. It was a pleasure taking care of you! Please call if you have any questions or problems. You can reach a [facility] hospitalist on duty at [facility] 24 hours a day by calling [phone]. Take care of yourself. Katie Fuentes DO [facility]
== END 2022-01-11 15:16 | disposition home or self-care (01) ==
LOC: 2N 09:22 → ED 09:22 → SUATTDRO 14:07 → 2N 15:18